=== PATIENT | male | born 1940 | race Caucasian/White ===

== ENCOUNTER 2017-06-05 09:22 | Inpatient (IN) | payer OTHER ==
[2017-06-05] MEDS ORDERED: ONDANSETRON DISINTEGRATING 4 MG TAB PO PRN (12:03)
[2017-06-05] MEDS ORDERED: PROMETHAZINE HCL 25 MG/ML INJ IVP PRN (12:03)
[2017-06-05] MEDS ORDERED: ACETAMINOPHEN 325 MG TAB PO PRN (12:03)
[2017-06-05] MEDS ORDERED: ONDANSETRON 4 MG/2 ML VIAL IVP PRN (12:03)
[2017-06-05] MEDS ORDERED: ALLOPURINOL 300 MG TAB PO SCH (12:15)
--- NOTE | 2017-06-05 12:27 | PDGENHP ---
History and Physical - Chief Complaint back pain - History of Present Illness 76 yo M with PMH of lumbar stenosis s/p lumbar fusion in February presenting with worsening radicular back pain. He was transferred from [place] for these complaints. He notes that the pain is present in his lower back with radiation down the front of his legs, previously it was with radiation down the backs of his legs. He does not believe he has had any associated weakness though he does experience buckling sometimes due to the pain. He has had no loss of sensation. No fever or chills. No change in bowel or bladder function. He did have hydrocodone at home but pain was not controlled from that. He was hospitalized earlier in the month for the same issues in [facility]. He notes that pain never improved however. History Information - Allergies/Home Medication List Allergies/Adverse Reactions: Sulfa (Sulfonamide Antibiotics) Allergy (Mild, Verified 06/05/17 11:37) Congestion Home Medications: Allopurinol [Allopurinol 300 MG (RX)] 300 mg PO MOTUTHFRSA 06/05/17 [Last Taken 06/04/17] Cetirizine [ZyrTEC 10 mg (*)] 10 mg PO DAILY 06/05/17 [Last Taken 06/04/17] Denosumab [Prolia] 60 mg SQ Q182D 06/05/17 [Last Taken Unknown] Fluticasone/Salmeter 250/50Mcg [Advair 250/50 (*)] 1 puffs IH BID 06/05/17 [ Last Taken 06/04/17 21:00] Glucosamine/Chondroitin [Glucosamine/Chondroitin (*)] 1 each PO ACHS 06/05/17 [ Last Taken Unknown] HYDROcodone/APAP 10/325 [[place] 10/325 (*)] 1 tab PO Q6 06/05/17 [Last Taken Unknown] Herbals/Supplements -Info Only 1 ea PO DAILY 06/05/17 [Last Taken Unknown] LORazepam [Ativan (*)] 1 mg PO TID PRN 06/05/17 [Last Taken Unknown] Methocarbamol [Robaxin 750 mg (*)] 750 mg PO DAILY PRN 06/05/17 [Last Taken Unknown] Multivitamins [Multivitamin (*)] 1 each PO DAILY 06/05/17 [Last Taken Unknown] Ranitidine HCl [Zantac] 150 - 300 mg PO DAILY 06/05/17 [Last Taken 06/04/17] guaiFENesin [Mucinex 600 MG (*)] 600 mg PO BID 06/05/17 [Last Taken Unknown] predniSONE [Aruna] 2 mg PO BID PRN 06/05/17 [Last Taken Unknown] I have personally reviewed and updated: family history, medical history, social history, surgical history - Past Medical History arthritis, asthma, osteoporosis Additional medical history: lumbar stenosis. gout - Surgical History Reports: spinal surgery - Family History Positive for: non-pertinent - Social History Smoking Status: Former smoker Alcohol Use: Occasionally (1 glass of wine/day) Drug Use: None Additional social history: Review of Systems ROS: 10pt was reviewed & negative except for what was stated in HPI & below Physical Exam Temp Pulse Resp BP Pulse Ox 37.0 C 91 16 136/84 H 91 L 06/05/17 11:00 06/05/17 11:00 06/05/17 11:00 06/05/17 11:00 06/05/17 11:00 O2 (L/minute) 2 Constitutional: appears nourished, uncomfortable Eyes: PERRL, anicteric sclera Ears, Nose, Mouth, Throat: moist mucous membranes, hearing normal Cardiovascular: regular rate and rhythym, no murmur, rub, or gallop, No edema Respiratory: no respiratory distress, no rales or rhonchi, clear to auscultation Gastrointestinal: normoactive bowel sounds, soft, non-tender abdomen, no palpable masses Skin: warm, normal color Musculoskeletal: full muscle strength, no muscle tenderness, No asymmetric calves Neurologic: AAOx3, sensation intact bilaterally, CN II-XII Intact, No weakness, No numbness Psychiatric: interacting appropriately, not anxious, not encephalopathic Lab Data & Imaging Review Visualized and Interpreted imaging results: Yes Interpretation: MRI L spine: s/p lumbar stenosis, new moderate to severe L1/L2 central canal stenosis Assessment & Plan Assessment: 76 yo M with hx of lumbar stenosis s/p surgery in february presenting with worsening lumbar radiculopathy # lumbar radiculopathy: pain increased and changed somewhat in nature, now radiation to the front of his legs rather than the back. no obvious associated weakness or numbness, no loss of bowel/bladder function. Neurosurgery consulted with plans to review MRI and further recs to follow. For now, pain mgmt with prn IV opiates, valium for muscle spasm. PT/OT to evaluate. # RAD: without e/o acute exacerbation, prn albuterol # gout: continue op medications including allopurinol and uses prednisone on a prn basis # osteoporsis # observation status, depending on clinical improvement and nsg recs may be able to dc in less than 48 hours, High risk given need for IV opiates Patient new to my care. Old records reviewed and summarized as above. Care plan reviewed with MINA AGARWAL. Further hx obtained from patients present at bedside.
[2017-06-05] MEDS: HYDROmorphONE/DILAUDID 1 MG/ML SYR IVP PRN ×2 (12:32→18:12)
[2017-06-05] MEDS: oxyCODONE IR 5 MG TAB PO PRN ×3 (14:05→21:18)
[2017-06-05] MEDS ORDERED: METHOCARBAMOL 750 MG TAB PO PRN (15:57)
[2017-06-05] MEDS ORDERED: LORazepam 1 MG TAB PO PRN (15:57)
[2017-06-05] MEDS ORDERED: predniSONE 1 MG TAB PO PRN (16:00)
[2017-06-05] MEDS ORDERED: DIAZEPAM 10 MG/2 ML SYR IVP PRN (16:02)
[2017-06-05] MEDS: GLUCOSAMINE/CHONDROITIN CAP PO SCH ×2 (17:18→21:18)
[2017-06-05] MEDS: HYDROCODONE/APAP 10/325 TAB PO SCH (17:21)
[2017-06-05] MEDS ORDERED: NALOXONE HCL 0.4 MG/ML INJ ONE (17:34)
[2017-06-05] MEDS ORDERED: fentaNYL 100 MCG/2 ML INJ ONE (17:35)
[2017-06-05] MEDS ORDERED: IPRATROPIUM/ALBUTEROL 3 ML DEYVIAL ONE (17:48)
[2017-06-05] MEDS: IPRATROPIUM/ALBUTEROL 3 ML DEYVIAL IH SCH (17:50)
--- NOTE | 2017-06-05 20:16 | POSTOPPROG ---
Post Op Note Date of Operation: 06/05/17 Surgeon: Anthony Oliveros Anesthesia: Other (Specify) (IV analgesia; no sedation) Pre-op Diagnosis: Insufficiency fracture of L2. Lumbar degenerative disc disease. Post-op Diagnosis: Same Indication: Back pain, bilateral leg pain Procedure: Caudal epidural steroid injection Findings: 2 ml kenalog (80 mg) and 3.5 ml PF 1% xylocaine epidural Inf/Abcess present in the surg proc area at time of surgery?: No EBL: Minimal Complications: 0
[2017-06-05] MEDS ORDERED: IOPAMIDOL (ISOVUE-M 300) 15 ML VIAL ONE (20:27)
[2017-06-05] MEDS ORDERED: TRIAMCINOLONE ACETONIDE 200 MG/5 ML MDV IM ONE (20:27)
[2017-06-05] MEDS: guaiFENesin 600 MG TAB.ER PO SCH (21:18)
[2017-06-05] MEDS: FLUTICASONE/SALMETER 250/50MCG DISKUS IH SCH (21:20)
--- NOTE | 2017-06-05 22:36 | GCON ---
[f rep st] CONSULTATION NEUROSURGERY CONSULTATION CHIEF COMPLAINT: Severe back pain. HPI: The patient is a 76-year-old male patient, well known to our office. He initially presented to our office with worsening back and leg pain, and had a history of prior fusion. He was found to have adjacent level breakdown at the L2-L3 level. After careful consideration, he underwent hardware exploration removal revision with a new TLIF at the L2-3 level, and extension of hardware from L2, with hardware replacement from L2-L4 bilaterally. Vertebroplasty was performed at the L2 level as well with bone cement placed around the screws. The patient was initially doing very well after surgery, and was most recently seen at his 6 week postop visit and was doing well. We advance his activity slowly with physical therapy. Over the past 2 weeks or so the patient has had worsening back pain. He was admitted at [facility] on May 26 with severe back pain. He states he had woken up after doing some yard work and working on a fence post the day before, and was unable to get up off the floor, and subsequently EMS was called. They brought him to [facility]. He states his pain was treated, and he was subsequently discharged. However, his pain has persisted since that time, and he presented to the Emergency Room at [place] again today. I discussed with the ER physician up in [place] after he called me about the patient. We discussed at this time it would be reasonable to transfer him down here to [place] to further work up his symptoms, and also to see if more urgent surgery was indicated. The patient recently underwent a new MRI and also CT scan lumbar spine, which were brought down from the [facility], and have been loaded on [facility]. The complains persistent lower back pain that radiates down the front of his legs. Previously it only radiated down the back of his legs. He states that because of the pain his legs felt weak at times, but he does not notice any new numbness, tingling, profound weakness in his legs or loss of bladder or bowel control. He was taking hydrocodone at home for his pain, but that did not control his pain adequately. ALLERGIES: Sulfa. HOME MEDICATIONS: Allopurinol, Zyrtec, Advair, glucosamine-chondroitin, multivitamin, fish oil, Zantac. FAMILY HISTORY: Reviewed, is noncontributory. MEDICAL HISTORY: Four prior back surgeries. Undergoing his most recent operation with Dr. Ellis. SOCIAL HISTORY: The patient is a former smoker. He is . He lives in [place]. He does use alcohol, but denies excessive use. REVIEW OF SYSTEMS: Please see above mentioned in the HPI. PHYSICAL EXAMINATION: VITAL SIGNS: Blood pressure 136/84, heart rate 91, respirations 16, O2 saturation is 91% on 2 L of oxygen via nasal cannula, temperature is 37 Celsius. GENERAL: Well-developed, well-nourished, male patient. He is in no acute distress. He appears to be resting comfortably in bed. He was recently given some pain medication. NEURO: Motor examination of bilateral lower extremities is 5/5 for hip flexion, flexion/extension of the knee, and plantar and dorsiflexion. He has 2+ bilateral patellar reflexes. Negative Babinski. He has intact sensation throughout the normal dermatomal distribution of his body. IMAGING: CT and MRI reviewed from outside hospital. Dr. Ellis has reviewed these images as well. He does have some moderate stenosis above his fusion at the L1-L2 level as seen on his MRI. His CT lumbar spine does show some air around one of the screws at the L2 level. The L5-S1 level also has some air in the disc space. It does not appear he has had any prior decompressions at the L5-S1 level. ASSESSMENT: This is a 76-year-old male patient with known lumbar degenerative disc disease and multilevel degeneration, who is status post L2-L4 fusion 3 months ago. Now with worsening pain, and apparent loosening of one of his L2 screws. Also stenosis at L1-L2, disc height loss, and endplate changes with facet arthropathy at the L5-S1 level. PLAN: I have seen and examined the patient today. Dr. Ellis has spoken with and seen the patient as well. At this time, we will discuss further with the patient if he would like to consider trying an injection at the L5-S1 level to see if this assists in his pain control. We feel it is likely he is symptomatic from his degeneration both at L1, L2, the loose screw at L2, and also the degeneration of the L5-S1 level. He may require revision of his fusion with extension likely from T12-S1 with TLIF to L1-L2, replacement of the screw at L2, with placement of bone cement, and TLIF at the L5-S1 level as well. While the patient is admitted, we will work on managing his pain, and work to ensure that we have a good regimen for pain control before he is discharged. Neurosurgery with continue to follow along with this patient. We will see how he wants to proceed in regard to the injection at the L5-S1 level. Please contact the neurosurgery service with any additional questions or concerns. /[id number]/MODL MTDD
[2017-06-06] MEDS: HYDROCODONE/APAP 10/325 TAB PO SCH ×3 (01:03→11:07)
[2017-06-06 05:19] LABS: ADD DIFF? YES; ADD MORPH? NO; ADD SCAN? NO; ATYPICAL LYMPHOCYTE FLAG 0 (0-99); FRAGMENT RBC FLAG 0 (0-99); HEMATOCRIT 44.9 % (40.0-51.0); HEMOGLOBIN 14.8 g/dL (13.7-17.5); LEFT SHIFT FLG 30 (0-99); LIPEMIA HEMOLYSIS FLAG 80 (0-99); MEAN CELL VOLUME 91.1 fL (81.5-99.8); MEAN PLATELET VOLUME 8.6 fL (8.7-11.7); PLATELET CLUMPS FLAG 10 (0-99); PLATELET COUNT 327 10^3/uL (150-400); RED BLOOD CELL COUNT 4.93 10^6/uL (4.40-6.38); RED CELL DISTRIBUTION WIDTH 13.5 % (11.5-15.2)
[2017-06-06 05:35] LABS: ANION GAP 9 mEq/L (8-16); CALCIUM 8.7 mg/dL (8.5-10.4); CARBON DIOXIDE 23 mEq/l (22-31); CHLORIDE 107 mEq/L (97-110); GLOMERULAR FILTRATION RATE > 60; GLUCOSE 136 mg/dL (70-100); POTASSIUM 4.8 mEq/L (3.5-5.2); SODIUM 139 mEq/L (134-144)
[2017-06-06] MEDS: IPRATROPIUM/ALBUTEROL 3 ML DEYVIAL IH SCH ×4 (05:35→21:00)
[2017-06-06 07:03] LABS: PLATELET ESTIMATE ADEQUATE (ADEQ)
[2017-06-06] MEDS: OMEGA-3 FATTY ACIDS 1,000 MG CAP PO SCH (08:55)
[2017-06-06] MEDS: guaiFENesin 600 MG TAB.ER PO SCH ×2 (08:55→21:16)
[2017-06-06] MEDS: GLUCOSAMINE/CHONDROITIN CAP PO SCH ×2 (08:55→11:07)
[2017-06-06] MEDS: FLUTICASONE/SALMETER 250/50MCG DISKUS IH SCH ×2 (08:55→21:07)
[2017-06-06] MEDS: MULTIVITAMINS 1 EACH TAB PO SCH (08:55)
[2017-06-06] MEDS ORDERED: RANITIDINE HCL PO SCH (09:00)
[2017-06-06] MEDS ORDERED: FAMOTIDINE 20 MG TAB PO SCH (09:00)
[2017-06-06] MEDS ORDERED: CETIRIZINE 10 MG TAB PO SCH ×2 (09:00→21:00)
[2017-06-06] MEDS ORDERED: NON-FORMULARY NEW DRUG (Ranitidine Hcl [Zantac 75] 75 MG) PO SCH (09:00)
[2017-06-06] MEDS ORDERED: FAMOTIDINE 20 MG TAB PO PRN (12:01)
--- NOTE | 2017-06-06 12:20 | NEUSURGPN ---
Assessment/Plan: 76m with L2-4 PSF 3 months ago and now with ASD on both sides of construct and intermittent severe back and leg pain that recently improved after a caudal SANA. Plan: -He is tentatively scheduled for revision surgery on 06/18 if needed, however, he can follow up with us outpatient to discuss. -We recommend staying one more day to ensure his pain is truly improved before dispo as he has bounced back the ED twice recently -Pt should do light duty at this time, no bending, twisting, lifting >10-15lbs at this time. -We would recommend a good pain control regiment for if his pain increases again that includes increased dose options of oxycodone, with concurrent tylenol and possibly the addition gabapentin. We can gladly provide these medications if needed. Subjective: doin much better since the injection, worried that the pain will come back in a few days as it has before. Objective: NAD, VSS EOMI, PEARLA MAEx4 BLE 5/5= +LT using walker to ambulate Urinary Catheter in Place: No - Physician Discussed Patient with : [facility] Physical Exam - Vitals, I&O, Labs I and O 06/05/17 06/06/17 06/07/17 05:59 05:59 05:59 Output Total 800 300 Balance -800 -300 Weight 78.471 kg Output: Urine (ml) 800 300 Toilet 800 300 Other: Number of Voids Toilet 3 1 Number of Stools Toilet 1 1 Vital Signs Temp Pulse Resp BP Pulse Ox 36.6 C 81 16 138/81 H 96 06/06/17 07:27 06/06/17 07:27 06/06/17 07:27 06/06/17 07:27 06/06/17 07:27 Laboratory Results 06/06/17 05:03 06/06/17 05:03 ICD10 Worksheet Patient Problems: Problems Problem Status Onset Other spondylosis with radiculopathy, lumbar region Acute Other spondylosis with radiculopathy, lumbar region Acute Pain Acute Pain Acute - ICD10 Problem Qualifiers (1) Pain (2) Other spondylosis with radiculopathy, lumbar region (3) Other spondylosis with radiculopathy, lumbar region
[2017-06-06] MEDS: ALLOPURINOL 300 MG TAB PO SCH (12:41)
[2017-06-06] MEDS: predniSONE 10 MG TAB PO SCH (12:41)
[2017-06-06] MEDS ORDERED: IPRATROPIUM/ALBUTEROL 3 ML DEYVIAL IH PRN (13:45)
[2017-06-06] MEDS ORDERED: NON-FORMULARY NEW DRUG (Propylene Glycol/Peg 400/Pf [Systane 0.3-0.4% Eye Drops] 1 EACH) OP PRN (13:45)
[2017-06-06] MEDS ORDERED: Propylene Glycol/Peg 400/Pf [Systane 0.3-0.4% Eye Drops] 1 EACH OP PRN (14:01)
--- NOTE | 2017-06-06 14:01 | HOSPPROG ---
Hospitalist Progress Note Assessment/Plan: 76 yo M with pmh of lumbar stenosis s/p lumbar fusion with complications since surgery including degeneration of the fusion at multiple levels, loose screw at l2 and residual canal stenosis now sp SANA # lumbar radiculopathy: s/p lumbar fusion and complications as above, he was having severe pain on admission that is now significantly improved following epidural spinal injection. Plan is to continue to monitor overnight given severe pain on admission and multiple admissions recently but if continues to be controlled will likely dc in am. # lumbar stenosis with degeneration of fusion: will need repeat surgery, has been scheduled tentatively in the coming weeks # RAD vs copd: per patient has a hx of asthma but given prolonged smoking history likely copd, continue duonebs/albuterol, no e/o acute decompensation # gout: continue allopurinol # dispo: IP status, will need > 48 hours stay for eval/mgmt of above, high risk given intermittent need for IV opioids Subjective: had SANA yesterday and feeling much better today, ambulating and feeling much better today Objective: Vital Signs Temp Pulse Resp BP Pulse Ox 36.6 C 81 16 138/81 H 96 06/06/17 07:27 06/06/17 07:27 06/06/17 07:27 06/06/17 07:27 06/06/17 07:27 Laboratory Results 06/06/17 05:03 06/06/17 05:03 06/05/17 06/06/17 06/07/17 05:59 05:59 05:59 Output Total 800 300 Balance -800 -300 awake alert nad anicteric op clear rrr no mrg cta b soft nt nd no cce warm dry well perfused oriented appropriate ICD10 Worksheet Patient Problems: Problems Problem Status Onset Pain Acute Pain Acute Other spondylosis with radiculopathy, lumbar region Acute Other spondylosis with radiculopathy, lumbar region Acute
[2017-06-06] MEDS: HYDROCODONE/APAP 10/325 TAB PO PRN (17:43)
[2017-06-06] MEDS ORDERED: GLUCOSAMINE/CHONDROITIN CAP PO SCH (21:00)
[2017-06-06] MEDS ORDERED: LORazepam 1 MG TAB PO SCH (21:00)
[2017-06-07] MEDS: IPRATROPIUM/ALBUTEROL 3 ML DEYVIAL IH SCH (05:43)
[2017-06-07] MEDS: HYDROCODONE/APAP 10/325 TAB PO PRN ×3 (05:59→11:42)
[2017-06-07 07:33] VITALS: BP 137/81; PULSE 98; RESP 16; TEMP 98.8; O2SAT 94
--- NOTE | 2017-06-07 08:30 | NEUSURGPN ---
Assessment/Plan: 76m with L2-4 PSF 3 months ago and now with ASD on both sides of construct and intermittent severe back and leg pain that recently improved after a caudal SANA. continues to do well and pain better controlled. Plan: -He is tentatively scheduled for revision surgery on 06/18 if needed, however, he can follow up with us outpatient to discuss. -OK for DC today from our stand point with pain meds. -Pt should do light duty at this time, no bending, twisting, lifting >10-15lbs at this time. -We would recommend a good pain control regiment for if his pain increases again that includes increased dose options of oxycodone if needed, with concurrent tylenol and possibly the addition gabapentin. We can gladly provide these medications if needed. dw Dr. Ellis Subjective: doing well, a little bit of increased pain when getting up, but overall much improved and tolerable. Objective: NAD, VSS cnii-xii grossly intact EOMI, PEARLA speech clear MAEx4 BLE 5/5= +LT - Physician Discussed Patient with Dr.: [facility] Physical Exam - Vitals, I&O, Labs I and O 06/06/17 06/07/17 06/08/17 05:59 05:59 05:59 Intake Total 1000 Output Total 800 600 Balance -800 400 Weight 78.471 kg Intake: Oral (ml) 1000 Output: Urine (ml) 800 600 Toilet 800 600 Other: Number of Voids Toilet 3 1 2 Number of Stools Toilet 1 1 Vital Signs Temp Pulse Resp BP Pulse Ox 37.1 C 98 16 137/81 H 94 06/07/17 07:33 06/07/17 07:33 06/07/17 07:33 06/07/17 07:33 06/07/17 07:33 Laboratory Results 06/06/17 05:03 06/06/17 05:03 ICD10 Worksheet Patient Problems: Problems Problem Status Onset Other spondylosis with radiculopathy, lumbar region Acute Other spondylosis with radiculopathy, lumbar region Acute Pain Acute Pain Acute - ICD10 Problem Qualifiers (1) Pain (2) Other spondylosis with radiculopathy, lumbar region (3) Other spondylosis with radiculopathy, lumbar region
[2017-06-07] MEDS: ALLOPURINOL 300 MG TAB PO SCH (08:55)
[2017-06-07] MEDS: predniSONE 10 MG TAB PO SCH (08:55)
[2017-06-07] MEDS: OMEGA-3 FATTY ACIDS 1,000 MG CAP PO SCH (08:55)
[2017-06-07] MEDS: guaiFENesin 600 MG TAB.ER PO SCH (08:55)
[2017-06-07] MEDS: MULTIVITAMINS 1 EACH TAB PO SCH (08:55)
[2017-06-07] MEDS ORDERED: predniSONE 10 MG TAB PO SCH (09:00)
[2017-06-07] MEDS ORDERED: GLUCOSAMINE/CHONDROITIN CAP PO SCH (09:00)
[2017-06-07] MEDS ORDERED: LORazepam 1 MG TAB PO SCH (09:00)
--- NOTE | 2017-06-07 09:23 | PDDCSUM ---
Discharge Summary Discharge Summary: Dates of service: 06/05-06/07/17 Discharge diagnosis: # lumbar radiculopathy # lumbar stenosis with fusion degeneration # RAD vs COPD # gout Consultations: neurosurgery Procedures performed: epidural spinal injection Hospital course by problem: 76 yo M with pmh of lumbar stenosis s/p lumbar fusion with complications since surgery including degeneration of the fusion at multiple levels, loose screw at l2 and residual canal stenosis now sp SANA # lumbar radiculopathy: s/p lumbar fusion and complications as above, he was having severe pain on admission that is now significantly improved following epidural spinal injection. Will dc home with addition of oxycodone and valium prn # lumbar stenosis with degeneration of fusion: will need repeat surgery, has been scheduled tentatively for the # RAD vs copd: per patient has a hx of asthma but given prolonged smoking history likely copd, continue duonebs/albuterol, no e/o acute decompensation # gout: continue allopurinol dc home > 35 minutes spent in dc of patient more than half in coordination of care
[2017-06-07] MEDS: FLUTICASONE/SALMETER 250/50MCG DISKUS IH SCH (09:48)
== END 2017-06-07 11:44 | disposition home or self-care (01) | DRG 552 ==
LOC: F3N 11:00 → INTOOBSV 11:00 → OBSVTOIN 06-06 14:16
PROVIDERS: ADMIT Hospitalist; ATTEND Hospitalist
PROC: 3E0S33Z Introduction of Anti-inflammatory into Epidural Space, Percutaneous Approach (ICD-10-PCS; principal; 2017-06-06)
DX: M54.16 Radiculopathy, lumbar region (principal); Z98.1 Arthrodesis status; T84.226A Displacement of internal fixation device of vertebrae, initial encounter; J45.909 Unspecified asthma, uncomplicated; M10.9 Gout, unspecified; Z87.891 Personal history of nicotine dependence; M81.0 Age-related osteoporosis without current pathological fracture
CPT/HCPCS: 97161-GP; 97165-GO; G0378; G8978-GP-CI; G8979-GP-CI; G8980-GP-CI; G8987-GO-CI; G8988-GO-CI; G8989-GO-CI; J1170; J2310; J3010; J3301; Q9967

== ENCOUNTER 2017-06-19 18:41 | Inpatient (IN) | payer OTHER ==
[2017-06-19] MEDS ORDERED: PROMETHAZINE HCL 25 MG/ML INJ IVP PRN (21:12)
[2017-06-19] MEDS ORDERED: ONDANSETRON DISINTEGRATING 4 MG TAB PO PRN (21:12)
[2017-06-19] MEDS ORDERED: ONDANSETRON 4 MG/2 ML VIAL IVP PRN (21:12)
[2017-06-19] MEDS: oxyCODONE IR 5 MG TAB PO PRN (21:32)
[2017-06-19] MEDS: HYDROmorphONE/DILAUDID 1 MG/ML SYR IVP PRN (21:32)
[2017-06-19] MEDS ORDERED: METHOCARBAMOL 750 MG TAB PO PRN (22:25)
[2017-06-19] MEDS ORDERED: DIAZEPAM 5 MG TAB PO PRN (22:25)
[2017-06-19] MEDS ORDERED: TEARS/DEXTRAN 70/HYPROMELLOSE 15 ML OPHT.BTL OP PRN (22:25)
[2017-06-19] MEDS ORDERED: FAMOTIDINE 20 MG TAB PO PRN (22:25)
--- NOTE | 2017-06-19 23:37 | GHP ---
[f rep st] HISTORY AND PHYSICAL DATE OF ADMISSION: 06/19/2017 CHIEF COMPLAINT: Back pain. HISTORY: This is a 76-year-old man with a past medical history that includes multiple lumbar fusion surgeries with revisions and hardware replacement presenting for the second time this month for com plaints of worsening lower back pain with associated radiculopathy. At his last hospitalization [place] this month, he was seen by his usual neurosurgeon, Dr. Ellis. At that time, it was felt that he was likely symptomatic from degeneration of his fusion at L1-L2 with an associated loose screw at L2 and also degeneration at the L5-S1 level. At that time, he was treated with an epidural injecti on and pain management, and a tentative plan for surgical revision was made for the . Patient d ischarged back home to [place] with improved pain control. He notes he followed up with Dr. Krishna rangel and they elected to continue conservative management rather than proceed with the scheduled surge ry for 06/18. Patient had been doing well with conservative management alone up until Thursday of this week when he saw physical therapy. Since that physical therapy episode, he had began to have m uch worse pain across his bilateral lower back, again associated with shooting pain down his legs. He called Neurosurgery, who instructed him to increase his pain medications and be seen at the emerg ency room. He was seen at the [place] [facility], after the ER doctor over there had a discu ssion with Dr. Palomino, decision was made to have him transferred here for further management. At the time of my evaluation, patient is in significant pain. He notes it is the same pain as befor e. He has not had any fevers or chills. He has not had any new symptoms. He does not have any wea kness. He has had no bowel or bladder incontinence. PAST MEDICAL HISTORY: 1. Osteoporosis. 2. Lumbar stenosis. 3. Arthritis. 4. Asthma. 5. Gout. PAST SURGICAL HISTORY: Includes multiple lumbar surgeries, at least 4, including TLIF at L2-L3, era tebroplasty, hardware replacement, and a prior lumbar fusion. SOCIAL HISTORY: Patient is a prior smoker. He is . Lives in [place]. Use alcohol occas ionally, states 1 glass of wine per day. REVIEW OF SYSTEMS: A 10-point review of systems obtained, negative except as per HPI. MEDICATIONS: Include: 1. Prednisone. 2. Oxycodone. 3. Guaifenesin. 4. Ranitidine. 5. Systane eye drops. 6. Multivitamin. 7. Robaxin. 8. DuoNeb. 9. Glucosamine chondroitin. 10. Advair. 11. Valium. 12. Prolia. 13. Cetirizine. 14. Allopurinol. 15. Tylenol. ALLERGIES: Include sulfa. PHYSICAL EXAMINATION: VITAL SIGNS: BP 134/84, heart rate 112, respiratory rate 18, O2 sats 94% on 3 L. Temperature is 37.1. GENERAL APPEARANCE: This is a well-developed/well-nourished m ron. He is in mild distress. EYES: Anicteric. HENT: Oropharynx clear. CARDIOVASCULAR: Mildly tachy, regular, no MRG. PULMONARY: CTA bilaterally. Normal work of breathing. ABDOMEN: Soft, no ntender. Positive bowel sounds. Abdomen is somewhat firm. EXTREMITIES: Trace bilateral lower ext remity edema. SKIN: Warm, dry, well perfused. NEURO/PSYCH: Oriented and appropriate, though some what somnolent. CLINICAL DATA: Labs from 06/06 were reviewed, notable for a white blood cell count of 18 and a gluc ose of 136. ASSESSMENT AND PLAN: This is a 76-year-old man with a past medical history of lumbar stenosis statu s post multiple lumbar fusion surgeries with hardware degeneration presenting with worsening back pa in. 1. Lumbar radiculopathy. Again, patient has degeneration of his fusion with a loose screw at L2 an d residual canal stenosis. There was a plan for surgical intervention that ultimately was deferred by patient preference. It does seem as if he is failing conservative management. He will be [place] t in for pain management. Dr. Palomino is aware of his transfer but likely, Dr. Ellis's office will n eed to be notified in the morning to be sure that they see him while he is here in-house. I will amezcua ve the patient be n.p.o. after midnight in case surgery can be performed tomorrow. 2. Chronic pain with continuous narcotic use and dependency in the setting of above and currently w orse than baseline. Will continue his home regimen with the addition of IV Dilaudid as needed. 3. History of reactive airways disease versus chronic obstructive pulmonary disease. Will continue DuoNeb and albuterol. He does not appear to have an acute exacerbation. 4. Gout. Continue allopurinol. 5. Hypoxia. This is in the setting of pain medication and somnolence and likely secondary to the s marisela. Will continue to monitor. Pulmonary exam was benign. 6. Disposition: Inpatient status. Suspect he will need greater than 48 hours stay for evaluation and management of above. Patient is new to my care. Old records reviewed, summarized as per HPI and past medical history. C are plan reviewed with ER physician, including plans for transfer here to [place]. /[id number]/MODL
[2017-06-20] MEDS: oxyCODONE IR 5 MG TAB PO PRN ×3 (00:53→12:25)
[2017-06-20 05:07] LABS: ADD DIFF? YES; ADD MORPH? NO; ADD SCAN? NO; ATYPICAL LYMPHOCYTE FLAG 0 (0-99); FRAGMENT RBC FLAG 0 (0-99); HEMATOCRIT 41.8 % (40.0-51.0); HEMOGLOBIN 13.8 g/dL (13.7-17.5); LEFT SHIFT FLG 40 (0-99); LIPEMIA HEMOLYSIS FLAG 80 (0-99); MEAN CELL HEMOGLOBIN 29.4 pg (27.9-34.1); MEAN CELL VOLUME 89.1 fL (81.5-99.8); MEAN PLATELET VOLUME 8.9 fL (8.7-11.7); PLATELET CLUMPS FLAG 0 (0-99); PLATELET COUNT 266 10^3/uL (150-400); RED BLOOD CELL COUNT 4.69 10^6/uL (4.40-6.38); RED CELL DISTRIBUTION WIDTH 14.5 % (11.5-15.2)
[2017-06-20 05:23] LABS: ANION GAP 9 mEq/L (8-16); CALCIUM 8.8 mg/dL (8.5-10.4); CARBON DIOXIDE 25 mEq/l (22-31); CHLORIDE 104 mEq/L (97-110); CREATININE 0.9 mg/dL (0.7-1.3); GLOMERULAR FILTRATION RATE > 60; GLUCOSE 138 mg/dL (70-100); POTASSIUM 4.1 mEq/L (3.5-5.2); SODIUM 138 mEq/L (134-144)
[2017-06-20 05:26] LABS: INR 1.09 (0.83-1.16)
[2017-06-20 05:27] LABS: APTT 29.3 SEC (23.0-38.0)
[2017-06-20 06:10] LABS: PLATELET ESTIMATE ADEQUATE (ADEQ)
[2017-06-20] MEDS: GLUCOSAMINE/CHONDROITIN CAP PO SCH (08:42)
[2017-06-20] MEDS: ALLOPURINOL 300 MG TAB PO SCH (08:42)
[2017-06-20] MEDS: CETIRIZINE 10 MG TAB PO SCH (08:43)
[2017-06-20] MEDS: MULTIVITAMINS 1 EACH TAB PO SCH (08:43)
[2017-06-20] MEDS: FLUTICASONE/SALMETER 250/50MCG DISKUS IH SCH ×2 (08:58→20:57)
[2017-06-20] MEDS: IPRATROPIUM/ALBUTEROL 3 ML DEYVIAL IH PRN ×2 (08:58→13:06)
[2017-06-20] MEDS ORDERED: MAGNESIUM HYDROXIDE 30 ML UDCUP PO PRN (10:01)
[2017-06-20] MEDS ORDERED: LACTULOSE 20 GM/30 ML UDCUP PO PRN (10:01)
[2017-06-20] MEDS ORDERED: BISACODYL 10 MG SUPP PR PRN (10:01)
[2017-06-20] MEDS: predniSONE 10 MG TAB PO SCH (10:14)
[2017-06-20] MEDS ORDERED: ACETAMINOPHEN 325 MG TAB PO PRN (10:41)
[2017-06-20 11:22] LABS: % IMMATURE GRANULYOCYTES 2.2 % (0.0-1.1); ADD DIFF? NO; ADD MORPH? NO; ADD SCAN? NO; ATYPICAL LYMPHOCYTE FLAG 0 (0-99); FRAGMENT RBC FLAG 0 (0-99); HEMATOCRIT 44.2 % (40.0-51.0); HEMOGLOBIN 14.8 g/dL (13.7-17.5); LEFT SHIFT FLG 20 (0-99); LIPEMIA HEMOLYSIS FLAG 80 (0-99); MEAN CELL HEMOGLOBIN 29.7 pg (27.9-34.1); MEAN CELL HEMOGLOBIN CONCENTR. 33.5 g/dL (32.4-36.7); MEAN CELL VOLUME 88.6 fL (81.5-99.8); MEAN PLATELET VOLUME 8.9 fL (8.7-11.7); PLATELET CLUMPS FLAG 30 (0-99); PLATELET COUNT 269 10^3/uL (150-400); RED BLOOD CELL COUNT 4.99 10^6/uL (4.40-6.38); RED CELL DISTRIBUTION WIDTH 14.4 % (11.5-15.2)
[2017-06-20 11:30] LABS: INR 1.12 (0.83-1.16); PROTIME(PATIENT) 14.3 SEC (12.0-15.0)
[2017-06-20 11:37] LABS: ALANINE AMINOTRANSFERASE 42 IU/L (21-72); ALBUMIN 3.1 g/dL (3.5-5.0); ALKALINE PHOSPHATASE 105 IU/L (38-126); ANION GAP 11 mEq/L (8-16); ASPARTATE AMINOTRANSFERASE 39 IU/L (17-59); CALCIUM 8.8 mg/dL (8.5-10.4); CARBON DIOXIDE 24 mEq/l (22-31); CHLORIDE 103 mEq/L (97-110); GLOMERULAR FILTRATION RATE > 60; GLUCOSE 111 mg/dL (70-100); POTASSIUM 4.1 mEq/L (3.5-5.2); SODIUM 138 mEq/L (134-144); TOTAL PROTEIN 5.5 g/dL (6.3-8.2)
--- NOTE | 2017-06-20 11:53 | GCON ---
[f rep st] CONSULTATION NEUROSURGERY CONSULTATION DATE OF CONSULTATION: 06/20/2017 Patient was seen and evaluated at approximately 10 a.m. on the general care floor at [facility]. HISTORY OF PRESENT ILLNESS: The patient is a 76-year-old man who is well known to Dr. Ellis, my pa rtner. He had a revision of hardware and L2-3 TLIF with [facility]. He has had 5 lumbar spine surgeries and now has hardware at L2 to L4 and fusion f rom L2 to L5. He also has severe osteoporosis and has vertebral augmentation at each level. He has been followed by Dr. Ellis in the clinic and, after his last surgery, was having very severe right -sided low back pain radiating into the hip. He also says that the pain radiates into the top of th e right foot and great toe occasionally. This pain has been quite severe, causing him to seek care in the emergency department at [place] yesterday, and was transferred down here to [place] for in patient pain management and evaluation by us. He had an MRI scan a couple weeks back, which does sh ow severe disk degeneration at L5-S1, especially on the right side with severe foraminal stenosis an d nerve impingement. 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 He did not have any other major complaints a t this time. He has not had any significant lower extremity weakness that he is reporting. He does have some baseline shortness of breath but, otherwise, no chest pain or abdominal pain. REVIEW OF SYSTEMS: A 10-point review of systems is negative other than that described in the HPI. PAST MEDICAL HISTORY: 1. Osteoporosis. 2. Significant lumbar spine disease with multiple surgeries. 3. Arthritis. 4. Asthma. 5. Gout. PAST SURGICAL HISTORY: Multiple lumbar surgeries, most recently removal of the L5 screws and a TLIF at L2-3 with L2 to 4 posterior spinal fusion. SOCIAL HISTORY: The patient is a prior smoker. He is and is accompanied by his today. He lives in [place]. Uses occasional social alcohol. FAMILY HISTORY: Negative for spinal disease. ALLERGIES: Sulfa. MEDICATIONS: Prior to admission include: 1. Prednisone. 2. Oxycodone. 3. Guaifenesin. 4. Ranitidine. 5. Multivitamin. 6. Robaxin. 7. DuoNeb. 8. Glucosamine/chondroitin. 9. Advair. 10. Valium. 11. Prolia. 12. Cetirizine. 13. Allopurinol. 14. Tylenol. PHYSICAL EXAMINATION: VITAL SIGNS: Currently, he is afebrile with normal stable vital signs. CONS TITUTIONAL: He is awake, alert, and oriented but lethargic due to pain medicine. He does fall asle ep during the conversation but awakens easily. NEUROLOGIC EXAMINATION: He has full 5/5 strength in the upper limbs bilaterally in all muscle group s. His sensation is intact. In the lower extremities, he has 5/5 strength of the hip flexors and e xtensors, knee flexors and extensors, and plantar flexion bilaterally. He does have 4/5 strength at dorsiflexion and EHL on the right side, and he has some numbness in the top of the right foot with loss of light touch and pinprick. His deep tendon reflexes are intact. He does have pain with palp ation over the right hip area and SI joint; however, his range of motion of the hip does not appear to bother him much. LABORATORY REVIEW: Sodium is 138, potassium 4.1, chloride 104, BUN is 19, creatinine 0.9, glucose 1 38. His white count is 17.85, hemoglobin 13.8, hematocrit 41.8, platelet count is 266,000. His INR is 1.0, PT 14, PTT is 29.3. ASSESSMENT AND PLAN: The patient is a 76-year-old male with severe lumbar spine disease. I think a t this point, he is most symptomatic from his L5-S1 disease, and he got a steroid injection at L5-S1 a couple weeks back, which gave him excellent relief for about 2 weeks. This seems to be a symptom atic L5 radiculopathy, and he does have severe foraminal stenosis and degenerative disease at the L5 -S1 level. He also has some signs of adjacent segment breakdown above his fusion, at L1-2 and T12-L 1. I have discussed with the patient and his the probable need for further surgical correction of this. His significant osteoporosis does make this surgery more difficult and somewhat risky, es pecially given the long segment construct that would be needed. I would plan to do an L5-S1 transfe moral lumbar interbody fusion and take his fusion down to the sacrum with S1 and sacral ala screws t o provide good support, given his high degree of osteoporosis. While we are there, it would also be hoove us to take his fusion up to T12, given that he already has signs of adjacent segment breakdown and has already had a number of lumbar surgeries. He will also need vertebral augmentation at prob ably each level, given his degree of osteoporosis. His white count is elevated at 17.8, and this is somewhat concerning for infection, so we will send some inflammatory markers and a urinalysis; othe rwise, we will defer to internal medicine in terms of further workup for the white count. It is pos sible that this is the demargination from his steroid use, but a white count of 17 is somewhat suman rning. He otherwise does not have any other signs of infection, and we may need to postpone his ramya marjan longer if we do see further signs that infection is an issue. Otherwise, we will plan for monica prater surgery tomorrow. The patient and his are in agreement with this plan. /[id number]/MODL
[2017-06-20] MEDS: POLYETHYLENE GLYCOL 3350 17 GM PKT PO PRN (12:25)
[2017-06-20] MEDS: guaiFENesin 200 MG TAB PO SCH ×2 (12:25→22:44)
[2017-06-20 12:26] LABS: COLOR YELLOW; LEUKOCYTE ESTERASE,URINE NEGATIVE (NEGATIVE); NITRITE,URINE NEGATIVE (NEGATIVE)
[2017-06-20 12:27] LABS: HEMATOCRIT 43.8 % (40.0-51.0)
[2017-06-20 12:42] LABS: MUCUS TRACE /lpf (NONE-1+)
--- NOTE | 2017-06-20 14:12 | CPEKG ---
Heart Rate: 119 RR Interval: 504 P-R Interval: 144 QRSD Interval: 86 QT Interval: 316 QTC Interval: 445 P [place]: 54 QRS [place]: -64 T Wave [place]: 21 EKG Severity - ABNORMAL ECG - EKG Impression: SINUS TACHYCARDIA EKG Impression: PROBABLE LEFT ATRIAL ABNORMALITY EKG Impression: LEFT ANTERIOR FASCICULAR BLOCK EKG Impression: ABNRM R PROG, CONSIDER ASMI OR LEAD PLACEMENT Electronically Signed By: David Sena 22-Jun-2017 12:26:04
[2017-06-20 15:09] LABS: BASE EXCESS -0.4 mEq/L (-2.5-2.5); BICARBONATE 22 mEq/L (22-26); MEASURED OXYGEN SATURATION 90 % (92-95); PCO2 33 mmHg (34-38); PO2 59 mmHg (65-75); TCO2 23 mEq/L (23-27)
[2017-06-20] MEDS: METHOCARBAMOL 750 MG TAB PO SCH (15:41)
[2017-06-20] MEDS ORDERED: NS 1,000 ML IV ONE (16:08)
--- NOTE | 2017-06-20 16:26 | HOSPPROG ---
Hospitalist Progress Note Assessment/Plan: Pt admitted for back pain. Lumbar fusion here 2 weeks ago. Per , pain uncontrolled at home, thus called doctor who rec increasing frequency of opioids at home. She states that he has had increased somnolence to have to wake him to give meds. She noted him coughing this morning and again this afternoon. #Acute hypoxic resp failure: CXR with BL infiltrates concerning for aspiration PNA with increased somnolence. Start Unasyn. Consider PE with surgery 2 weeks ago and decreased mobility. Stat CTA to eval for PE, trop, EKG #Sepsis: concern for PNA. Bolus IVFs, abx. Lactate, procalcitonin. Blood culture pending #Fever: suspect infection. plan as above #Tachycardia: due to fever. Bolus IVFs. EKG shows tachycardia. Trop pending #Leukocytosis: abx as above. Cultures pending #Acute toxic/metabolic encephalopathy: due to infection and opioids. Minimize these medications #Disp: transfer to ICU. Critical care time spent: 45 min. 15 min bedside,remaining reviewing prior records, imaging and coordinating transfer I explained clinical status to and possible need for intubation, transfer to ICU and agreed with plans. Subjective: called to bedside for hypoxia, tachycardia, fever Objective: Vital Signs Temp Pulse Resp BP Pulse Ox 39.2 C H 127 H 24 H 102/61 90 L 06/20/17 15:53 06/20/17 15:53 06/20/17 15:53 06/20/17 15:53 06/20/17 15:53 Laboratory Results 06/20/17 12:10 06/20/17 11:05 06/19/17 06/20/17 06/21/17 05:59 05:59 05:59 Intake Total 500 Output Total 300 Balance 200 PT 14.3 SEC (12.0-15.0) 06/20/17 11:05 INR 1.12 (0.83-1.16) 06/20/17 11:05 - Physical Exam Constitutional: uncomfortable Eyes: PERRL Ears, Nose, Mouth, Throat: dry mucous membranes Cardiovascular: tachycardia Respiratory: other (poor effort, will not participate in exam) Gastrointestinal: normoactive bowel sounds Genitourinary: no bladder fullness Skin: warm Musculoskeletal: full muscle strength Neurologic: other (somnolent. Denies SOB or CP) Psychiatric: encephalopathic ICD10 Worksheet Patient Problems: Problems Problem Status Onset Other spondylosis with radiculopathy, lumbar region Acute Other spondylosis with radiculopathy, lumbar region Acute Pain Acute Pain Acute
[2017-06-20 16:29] LABS: BASE EXCESS -1.3 mEq/L (-2.5-2.5); BICARBONATE 21 mEq/L (22-26); MEASURED OXYGEN SATURATION 91 % (92-95); PCO2 31 mmHg (34-38); PO2 62 mmHg (65-75); TCO2 22 mEq/L (23-27)
[2017-06-20] MEDS ORDERED: AZITHROMYCIN IV 500 MG in D5W 250 ML IV SCH (16:30)
[2017-06-20] MEDS ORDERED: cefTRIAXone 2 GM in D5W 50 ML IV SCH (16:30)
--- NOTE | 2017-06-20 16:37 | HOSPPROG ---
Hospitalist Progress Note Assessment/Plan: 76-year-old male with severe L5-S1 radiculopathy. Neurosurgery has planned to do a decompression yet it is noted that he has a leukocytosis and has been febrile. Patient is new to me today -acute pneumonia: possibly aspiration, 2/2 atelectasis due to pain medication, or CAP -acute respiratory failure possibly 2/2 pain medication and pneumonia -acute sepsis: tachypnea, tachycardia, febrile, leukocytosis: Rx rocephin, azithromycin -acute L5-S1 radiculopathy with severe pain: plan ketamine drip Plan: cancel surgery due to pneumoni, transfer to ICU, -Time: 60 minutes of critical care time Subjective: reports he is in pain. Intially very sedated due to pain medication. Reports low back pain, no chest pain or SOB Objective: Vital Signs Temp Pulse Resp BP Pulse Ox 39.2 C H 127 H 24 H 102/61 90 L 06/20/17 15:53 06/20/17 15:53 06/20/17 15:53 06/20/17 15:53 06/20/17 15:53 Laboratory Results 06/20/17 12:10 06/20/17 11:05 06/19/17 06/20/17 06/21/17 05:59 05:59 05:59 Intake Total 500 Output Total 300 Balance 200 PT 14.3 SEC (12.0-15.0) 06/20/17 11:05 INR 1.12 (0.83-1.16) 06/20/17 11:05 - Time Spent With Patient Time Spent with Patient: greater than 35 minutes Time Spent with Patient: Greater than 35 minutes spent on this patients care, greater than 50% of time spent counseling, educating, and coordinating care regarding the above mentioned plan. - Pending Discharge Pending Discharge Within 24 Hours: No Pending Discharge Within 48 Hours: No - Physical Exam Constitutional: other (acute respiratory distress; febrile, in pain) Eyes: PERRL, anicteric sclera Ears, Nose, Mouth, Throat: moist mucous membranes, hearing normal Cardiovascular: regular rate and rhythym, no murmur, rub, or gallop, tachycardia Respiratory: no respiratory distress, reduced air movement, inspiratory crackles , rhonchi Gastrointestinal: normoactive bowel sounds, soft, non-tender abdomen, no palpable masses Genitourinary: no bladder fullness Skin: warm Musculoskeletal: generalized weakness Neurologic: other (drowsy) ICD10 Worksheet Patient Problems: Problems Problem Status Onset Pain Acute Pain Acute Other spondylosis with radiculopathy, lumbar region Acute Other spondylosis with radiculopathy, lumbar region Acute
[2017-06-20] MEDS ORDERED: chlorproMAZINE HCL 50 MG in NS 50 ML IV ONE (16:45)
[2017-06-20] MEDS ORDERED: AMPICILLIN/SULBACTAM 3 GM in NS 100 ML IV SCH ×2 (16:45→18:00)
[2017-06-20] MEDS ORDERED: KETAMINE 100 MG/10 ML SYR IVP ONE ×2 (16:48→18:15)
[2017-06-20] MEDS ORDERED: IOPAMIDOL (ISOVUE 370) 100 ML BTL IV ONE (16:51)
[2017-06-20] MEDS ORDERED: KETAMINE 100 MG/10 ML SYR ONE (16:58)
[2017-06-20] MEDS ORDERED: ACETAMINOPHEN 650 MG SUPP PR PRN (18:09)
[2017-06-20] MEDS: NS 1,000 ML IV SCH (18:11)
[2017-06-20] MEDS ORDERED: NS W/ 20 KCl/L 1,000 ML IV SCH (18:15)
[2017-06-20] MEDS: methylPREDNISolone SOD SUCC 40 MG/ML VIAL IVP SCH ×2 (18:33→23:23)
[2017-06-20] MEDS: KETAMINE 100 MG in D5W 100 ML IV SCH (18:48)
[2017-06-20] MEDS: HYDROmorphONE/DILAUDID 1 MG/ML SYR IVP PRN (19:56)
[2017-06-20] MEDS: LIDOCAINE 5% 1 EA PATCH TD SCH (20:17)
[2017-06-20] MEDS: AZITHROMYCIN IV 500 MG in D5W 250 ML IV SCH (20:29)
[2017-06-20] MEDS: IPRATROPIUM/ALBUTEROL 3 ML DEYVIAL IH SCH (20:54)
[2017-06-20] MEDS: PANTOPRAZOLE SODIUM 40 MG in NS 100 ML IV SCH (21:37)
[2017-06-20] MEDS: SENNOSIDES/DOCUSATE SODIUM TAB PO SCH (22:44)
[2017-06-20] MEDS: METHOCARBAMOL 1,000 MG in NS 50 ML IV SCH (23:23)
[2017-06-21] MEDS ORDERED: NS BOLUS 1000 ML (Wide open) IV ONE (01:00)
[2017-06-21] MEDS: IPRATROPIUM/ALBUTEROL 3 ML DEYVIAL IH SCH ×6 (02:06→21:23)
[2017-06-21] MEDS: NS 1,000 ML IV SCH ×2 (03:30→15:45)
[2017-06-21] MEDS: methylPREDNISolone SOD SUCC 40 MG/ML VIAL IVP SCH ×4 (05:31→23:44)
[2017-06-21 05:53] LABS: HEMATOCRIT 36.9 % (40.0-51.0); HEMOGLOBIN 12.2 g/dL (13.7-17.5); MEAN CELL HEMOGLOBIN 29.6 pg (27.9-34.1); MEAN CELL HEMOGLOBIN CONCENTR. 33.1 g/dL (32.4-36.7); MEAN CELL VOLUME 89.6 fL (81.5-99.8); RED BLOOD CELL COUNT 4.12 10^6/uL (4.40-6.38); RED CELL DISTRIBUTION WIDTH 14.1 % (11.5-15.2)
[2017-06-21 05:58] LABS: ANION GAP 10 mEq/L (8-16); CALCIUM 7.4 mg/dL (8.5-10.4); CARBON DIOXIDE 19 mEq/l (22-31); CHLORIDE 113 mEq/L (97-110); CREATININE 0.8 mg/dL (0.7-1.3); GLOMERULAR FILTRATION RATE > 60; GLUCOSE 176 mg/dL (70-100); POTASSIUM 4.2 mEq/L (3.5-5.2); SODIUM 142 mEq/L (134-144); URIC ACID 4.3 mg/dL (3.5-8.5)
[2017-06-21] MEDS ORDERED: METHOCARBAMOL 1,000 MG in NS 50 ML IV SCH (06:00)
[2017-06-21] MEDS: METHOCARBAMOL 750 MG TAB PO SCH (06:26)
--- NOTE | 2017-06-21 07:34 | NEUSURGPN ---
Assessment/Plan: Assessment: 76 yo male that is 3 months s/p TLIF L2/3 with PSF L2-L4 with Dr Ellis. Admitted to IM with severe RLE pain Plan: -s/p L spine fusion-pt will need extension of fusion from [id number] hold for surgery at this time due to other medical issues. 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 Originally scheduled for surgery today but delayed to underlying medical issues -new MRI of the L spine with and wo pending -pt with pneumonia-IM working with pt on this -cultures pending -PT/OT as tolerated -IM/critical care working with Chavo on getting cleared and ready for surgery -please call with any changes or issues -RN/Pt/family updated Subjective: Awake and alert. NAD. Eating/drinking and voiding. No amezcua/neck/abd or gu complaints. Objective: AAO x 3, PERRLA/EOMI no droop CN 2-12 grossly intact +lt touch 5/5 BLE = Neuro Check Frequency: per routine Urinary Catheter in Place: Yes Urinary Catheter Indication: Other (Use Comment) (in bed) Catheter Insertion Date: 06/20/17 - Physician Discussed Patient with Dr.: [facility] Physical Exam - Vitals, I&O, Labs I and O 06/20/17 06/21/17 06/22/17 05:59 05:59 05:59 Intake Total 500 1200 Output Total 300 1200 Balance 200 0 Weight 78.925 kg Intake: Oral (ml) 500 0 IV Intake (ml) 1200 Output: Urine (ml) 300 1200 Urinal 300 1200 Other: Number of Stools Urinal 0 Vital Signs Temp Pulse Resp BP Pulse Ox 36.9 C 80 20 104/52 L 98 06/20/17 23:00 06/21/17 06:01 06/21/17 06:01 06/21/17 05:00 06/21/17 05:00 Laboratory Results 06/21/17 05:00 06/21/17 05:00 ICD10 Worksheet Patient Problems: Problems Problem Status Onset Other spondylosis with radiculopathy, lumbar region Acute Other spondylosis with radiculopathy, lumbar region Acute Pain Acute Pain Acute
[2017-06-21] MEDS ORDERED: ceFAZolin 2 GM/DEXTROSE 100 ML IV ONE (08:00)
--- NOTE | 2017-06-21 08:12 | HOSPPROG ---
Hospitalist Progress Note Assessment/Plan: 76-year-old male with severe L5-S1 radiculopathy. Neurosurgery has planned to do a decompression yet it is noted that he has a leukocytosis and has been febrile. -acute pneumonia: possibly aspiration, 2/2 atelectasis due to pain medication, or CAP; Oxygen needs declining and now 3l/min -acute respiratory failure possibly 2/2 pain medication and pneumonia -acute sepsis: tachypnea, tachycardia, febrile, leukocytosis: Rx rocephin, azithromycin -acute L5-S1 radiculopathy with severe pain: ketamine drip has resolved his pain -aspiration risk: will need EMBEDDED FIRMWARE ENGINEER evaluation Plan: cancel surgery due to pneumonia, -Time: 45 minutes Subjective: alert and responsive; reports his pain is resolved. Able to move and roll in bed without discomfort. no fever today, no nausea, vomiting. NOted some coughing while drinking some water. Objective: Vital Signs Temp Pulse Resp BP Pulse Ox 36.9 C 80 20 104/52 L 98 06/20/17 23:00 06/21/17 06:01 06/21/17 06:01 06/21/17 05:00 06/21/17 05:00 Laboratory Results 06/21/17 05:00 06/21/17 05:00 06/20/17 06/21/17 06/22/17 05:59 05:59 05:59 Intake Total 500 1200 Output Total 300 1200 Balance 200 0 PT 14.3 SEC (12.0-15.0) 06/20/17 11:05 INR 1.12 (0.83-1.16) 06/20/17 11:05 Laboratory Tests 06/20/17 06/20/17 06/20/17 04:47 11:05 11:05 WBC 17.85 H 13.70 H Calcium Troponin I C-Reactive Protein Albumin 3.1 L Procalcitonin 06/20/17 06/20/17 06/20/17 12:10 14:30 16:20 WBC Calcium Troponin I < 0.012 C-Reactive Protein 243.1 H Albumin Procalcitonin 2.77 H 06/20/17 06/21/17 06/21/17 17:25 05:00 05:00 WBC 14.32 H Calcium 7.4 L D Troponin I < 0.012 C-Reactive Protein Albumin Procalcitonin - Physical Exam Constitutional: no apparent distress, other (alert with slow, slurred speech) Eyes: PERRL, anicteric sclera Ears, Nose, Mouth, Throat: dry mucous membranes Cardiovascular: regular rate and rhythym, no murmur, rub, or gallop Respiratory: no respiratory distress, reduced air movement, other (inspiratory rales at bases) Gastrointestinal: normoactive bowel sounds, soft, non-tender abdomen Genitourinary: no bladder fullness, other (james) Musculoskeletal: full muscle strength Neurologic: AAOx3, CN II-XII Intact ICD10 Worksheet Patient Problems: Problems Problem Status Onset Pain Acute Pain Acute Other spondylosis with radiculopathy, lumbar region Acute Other spondylosis with radiculopathy, lumbar region Acute
[2017-06-21] MEDS ORDERED: GADOBUTROL 10 ML VIAL IVP ONE (08:57)
[2017-06-21] MEDS: METHOCARBAMOL 1,000 MG in NS 50 ML IV SCH ×3 (09:04→22:40)
[2017-06-21] MEDS: FLUTICASONE/SALMETER 250/50MCG DISKUS IH SCH ×2 (10:58→21:24)
[2017-06-21] MEDS: AZITHROMYCIN IV 500 MG in D5W 250 ML IV SCH (11:02)
[2017-06-21] MEDS: GLUCOSAMINE/CHONDROITIN CAP PO SCH (11:04)
[2017-06-21] MEDS: ALLOPURINOL 300 MG TAB PO SCH (11:04)
[2017-06-21] MEDS: guaiFENesin 200 MG TAB PO SCH ×2 (11:04→22:39)
[2017-06-21] MEDS: CETIRIZINE 10 MG TAB PO SCH (11:04)
[2017-06-21] MEDS: MULTIVITAMINS 1 EACH TAB PO SCH (11:05)
[2017-06-21] MEDS: SENNOSIDES/DOCUSATE SODIUM TAB PO SCH ×2 (11:05→22:39)
[2017-06-21] MEDS: predniSONE 10 MG TAB PO SCH (11:05)
[2017-06-21] MEDS: ENOXAPARIN 40 MG/0.4 ML SYR SC SCH (11:10)
[2017-06-21] MEDS: PANTOPRAZOLE SODIUM 40 MG in NS 100 ML IV SCH (11:11)
[2017-06-21] MEDS: LIDOCAINE 5% 1 EA PATCH TD SCH (11:11)
--- NOTE | 2017-06-21 13:31 | GCON ---
[f rep st] CONSULTATION PULMONARY CRITICAL CARE CONSULTATION DATE OF CONSULTATION: 06/20/2017 REASON FOR CONSULTATION: Acute respiratory failure in a patient with intractable back pain, critical access hospital ed for lumbar surgery. HISTORY: The patient is a 76-year-old gentleman. He was admitted early yesterday with intractable back pain. He lives in [place]. He has had 4 previous back surgeries. His last, I believe, was in February with a TLIF done by Dr. Ellis from L2 to L4 bilaterally. He subsequently had increasing pain. He was re-evaluated a couple weeks ago as an inpatient and subsequently had a Kenalog and lid ocaine injection at L2. However, the pain became more intractable. He was taking more narcotics an d becoming significantly more lethargic at home. He was thus readmitted to the hospital yesterday w ith plan for surgery. However, secondary to medical instability, this has been delayed. He became hypoxemic yesterday, possibly aspirated. He was moved to the intensive care unit yesterda y afternoon as a stat call. Chest x-ray showed bilateral pulmonary infiltrates possibly consistent with aspiration pneumonia. This was felt to have happened in part secondary to his somnolence. Sep sis could not be excluded. Lactate was not elevated. He was treated with intravenous fluids and an tibiotics. Blood cultures were obtained. He was febrile and tachycardic with an associated leukocy tosis. Overnight, in the intensive care unit, he has stabilized. Blood pressure is stable. He is on 3-4 L of nasal cannula oxygen. He is on ketamine for pain control along with IV Dilaudid, oxycodone, Lyudmila u-Medrol, and p.r.n. Valium. Antibiotics include azithromycin and ceftriaxone. PAST MEDICAL HISTORY: Remarkable for asthma. There is a history of osteoporosis, arthritis, as wel l as gout. PAST SURGICAL HISTORY: Includes 4 previous lumbar surgeries and vertebroplasty. MEDICATIONS: At home, included guaifenesin, oxycodone, prednisone at 10 mg per day, Zantac, DuoNeb, Robaxin, Advair, Valium, Prolia, Zyrtec, allopurinol and p.r.n. medications. SOCIAL HISTORY: The patient is with a very supportive . Lives in [place]. He smoke d cigarettes in the past. Significant alcohol is negative. FAMILY HISTORY: Noncontributory. REVIEW OF SYSTEMS: Unobtainable currently from the patient. PHYSICAL EXAMINATION: GENERAL: Reveals a gentleman who is sedated, but arousable. VITAL SIGNS: B lood pressure is 115/50, heart rate 85 with sinus rhythm on the monitor, on 4 L of oxygen saturation s are 96%, respiratory rate is 14. He is afebrile. NECK: Unremarkable for lymphadenopathy or thyr omegaly. There is no jugular venous distention. HEENT: Nasal cannula oxygen is in place. The muc ous membranes are somewhat dry. CHEST: Clear bilaterally. Voluntary deep inspirations are good. There are no wheezes, rales, or rhonchi. HEART: Regular in rate and rhythm. There is a soft systo lic murmur. No gallops. ABDOMEN: Soft and nontender. There is no organomegaly. Bowel sounds are present, but reduced. BACK: Was not examined. EXTREMITIES: Unremarkable for edema, cords, or ten derness. Sequential compression devices are in place. GENITOURINARY: A Spencer catheter is in place with good urine output. IMAGING: Chest x-ray yesterday was reviewed. There are increased markings at the bases, more promi nent on the right than the left. However, both bases have infiltrate/atelectasis. Hypoventilatory changes are noted. LABORATORY: White blood cell count is 14,000, hematocrit 36.9, platelets are 266,000. PT and PTT a re normal. Arterial blood gas yesterday probably on 15 L of oxygen showed a pH of 7.45, pCO2 of 31, and pO2 of 62. This was prior to his transfer to the intensive care unit. No subsequent blood gas has been obtained. Sodium is 142, potassium 4.2, CO2 of 19, anion gap 10, BUN 18 with creatinine 0 .8, glucose is 176, calcium 7.4. Troponins are negative. Procalcitonin yesterday was elevated. Ve nous lactate was 1.6. ASSESSMENT AND PLAN: 1. Acute respiratory failure with transient hypoxemia and hypotension. He does have pulmonary infi ltrates and may have aspirated secondary to decreased mental status and decreased ability to protect his airway secondary to sedation from medications. He also has a history of reactive airways disea se and previous smoking. This may have been playing a role as well, although he has does not have a ny wheezing on examination today. He has improved significantly overnight. He is on 3-4 L and rest ing comfortably. His lungs are clear, without evidence of pneumonia, consolidation, or wheezing. Mitchell melgar is on appropriate antibiotics, bronchodilator therapies, and steroids. The latter can be reduced. 2. Sepsis. He was hypotensive with other signs and symptoms of sepsis. This has rapidly improved. He is no longer hypotensive and has not required pressors. 3. Lumbar spine disease. He does have severe lumbar disease associated with intractable back pain. He is on ketamine by intravenous drip for this, along with narcotics and other medications. Back pain is currently controlled. Further surgery is planned. Because he has stabilized quickly, it is very possible that he will be able to undergo surgery tomorrow. This remains, however, to be deter mined. 4. Intractable back pain secondary to above. 5. History of reactive airways disease, asthma. He also smoked cigarettes in the past. 6. History of other medical problems, as outlined above. 7. Deep vein thrombosis prophylaxis, on enoxaparin. 8. Gastrointestinal prophylaxis, on famotidine. 9. Nutrition, currently on hold secondary to decreased mental status from medications. P.o. medica tions need to be adjusted and changed. If n.p.o. status is prolonged, a feeding tube may be needed. PLAN AND RECOMMENDATIONS: The patient will be kept in the intensive care unit. Bronchopulmonary th erapies and antibiotics will be maintained. Steroids will be decreased. Ketamine and pain control will be maintained. A PICC line has been requested for better venous access. A repeat lumbar MRI i s pending. Results will be awaited. Neurosurgery will continue to follow the patient closely. Further plans and recommendations will be made based on his progress over the next 12-24 hours. /[id number]/MODL
[2017-06-21] MEDS: PATCH REMOVAL 1 EA PATCH TD SCH (22:47)
[2017-06-21] MEDS: DIAZEPAM 10 MG/2 ML SYR IVP PRN (23:44)
[2017-06-22] MEDS: IPRATROPIUM/ALBUTEROL 3 ML DEYVIAL IH SCH ×6 (02:51→21:43)
[2017-06-22] MEDS: methylPREDNISolone SOD SUCC 40 MG/ML VIAL IVP SCH ×4 (05:48→23:55)
[2017-06-22 06:00] LABS: ADD MORPH? NO; ADD SCAN? YES; ATYPICAL LYMPHOCYTE FLAG 0 (0-99); FRAGMENT RBC FLAG 0 (0-99); HEMATOCRIT 33.5 % (40.0-51.0); HEMOGLOBIN 11.4 g/dL (13.7-17.5); LIPEMIA HEMOLYSIS FLAG 90 (0-99); MEAN CELL VOLUME 88.2 fL (81.5-99.8); MEAN PLATELET VOLUME 9.1 fL (8.7-11.7); PLATELET CLUMPS FLAG 0 (0-99); PLATELET COUNT 216 10^3/uL (150-400)
[2017-06-22 06:03] LABS: LEFT SHIFT FLG 180 (0-99)
[2017-06-22 06:11] LABS: INR 1.47 (0.83-1.16); PROTIME(PATIENT) 17.8 SEC (12.0-15.0)
[2017-06-22 06:12] LABS: APTT 33.6 SEC (23.0-38.0)
[2017-06-22 06:20] LABS: ALANINE AMINOTRANSFERASE 45 IU/L (21-72); ALBUMIN 2.4 g/dL (3.5-5.0); ALKALINE PHOSPHATASE 94 IU/L (38-126); ANION GAP 12 mEq/L (8-16); ASPARTATE AMINOTRANSFERASE 45 IU/L (17-59); BILIRUBIN,TOTAL 0.4 mg/dL (0.1-1.4); CALCIUM 7.4 mg/dL (8.5-10.4); CARBON DIOXIDE 18 mEq/l (22-31); CHLORIDE 118 mEq/L (97-110); CREATININE 0.7 mg/dL (0.7-1.3); GLOMERULAR FILTRATION RATE > 60; GLUCOSE 210 mg/dL (70-100); POTASSIUM 3.8 mEq/L (3.5-5.2); SODIUM 148 mEq/L (134-144); TOTAL PROTEIN 4.5 g/dL (6.3-8.2)
[2017-06-22] MEDS: METHOCARBAMOL 1,000 MG in NS 50 ML IV SCH (06:25)
[2017-06-22 06:47] LABS: ADD DIFF? YES; SCAN POSITIVE
[2017-06-22 06:49] LABS: PLATELET ESTIMATE ADEQUATE (ADEQ)
[2017-06-22] MEDS: KETAMINE 100 MG in D5W 100 ML IV SCH (08:08)
--- NOTE | 2017-06-22 08:09 | HOSPPROG ---
Hospitalist Progress Note Assessment/Plan: 76-year-old male with severe L5-S1 radiculopathy. Neurosurgery has planned to do a decompression and fusion yet it is noted that he has a leukocytosis and has been febrile. -acute pneumonia: possibly aspiration, 2/2 atelectasis due to pain medication, or CAP; Oxygen needs declining and now 3l/min. This probable bacterial as procalcitonin is elevated. Abx rocephin/zithro and improving respiratory status. CXR yesterday is improved. Oxygenation improving and now on room air. -acute respiratory failure possibly 2/2 pain medication and pneumonia; now improving -leukocytosis initial high, then declined, now slightly elevated again. Possibly 2/2 steroids -acute sepsis: tachypnea, tachycardia, febrile, leukocytosis: Rx rocephin, azithromycin; sepsis resolved. Lactate was normal -acute L5-S1 radiculopathy with severe pain: ketamine drip has resolved his pain. Will discuss with neurosurgery. Plan epidural injection 06/23 for pain relief. If this is not successful, then would suggest neurosurgery proceed with planned fusion. -aspiration risk: will need TRAFFIC REPRESENTATIVE evaluation Plan: Pain relief with percocet, epidural injection 06/23; transfer from ICU. -Time: Subjective: reports pain is 3/10 and feels well; no chest pain, SOB Objective: Vital Signs Temp Pulse Resp BP Pulse Ox 36.1 C 100 23 H 104/55 L 99 06/22/17 07:31 06/22/17 07:31 06/22/17 07:31 06/22/17 07:31 06/22/17 07:31 Laboratory Results 06/22/17 05:45 06/22/17 05:45 06/21/17 06/22/17 06/23/17 05:59 05:59 05:59 Intake Total 1200 2996.6 Output Total 1200 2375 Balance 0 621.6 PT 17.8 SEC (12.0-15.0) H 06/22/17 05:45 INR 1.47 (0.83-1.16) H 06/22/17 05:45 - Time Spent With Patient Time Spent with Patient: greater than 35 minutes Time Spent with Patient: Greater than 35 minutes spent on this patients care, greater than 50% of time spent counseling, educating, and coordinating care regarding the above mentioned plan. - Pending Discharge Pending Discharge Within 24 Hours: No Pending Discharge Within 48 Hours: No - Physical Exam Constitutional: no apparent distress Eyes: PERRL Ears, Nose, Mouth, Throat: moist mucous membranes Cardiovascular: regular rate and rhythym, no murmur, rub, or gallop Respiratory: no respiratory distress, other (rales in LLL, no ecophony) Gastrointestinal: normoactive bowel sounds, soft, non-tender abdomen Genitourinary: no bladder fullness Skin: warm Musculoskeletal: generalized weakness, other (reports pain in right lower back, ) Neurologic: AAOx3, CN II-XII Intact Psychiatric: interacting appropriately ICD10 Worksheet Patient Problems: Problems Problem Status Onset Pain Acute Pain Acute Other spondylosis with radiculopathy, lumbar region Acute Other spondylosis with radiculopathy, lumbar region Acute
[2017-06-22] MEDS: ALLOPURINOL 300 MG TAB PO SCH ×2 (08:26→11:58)
[2017-06-22] MEDS: GLUCOSAMINE/CHONDROITIN CAP PO SCH ×2 (08:28→11:57)
[2017-06-22] MEDS: SENNOSIDES/DOCUSATE SODIUM TAB PO SCH ×2 (08:28→21:32)
[2017-06-22] MEDS: guaiFENesin 200 MG TAB PO SCH ×2 (08:28→11:57)
[2017-06-22] MEDS: ENOXAPARIN 40 MG/0.4 ML SYR SC SCH ×2 (08:28→10:50)
[2017-06-22] MEDS: MULTIVITAMINS 1 EACH TAB PO SCH ×2 (08:28→11:57)
[2017-06-22] MEDS: CETIRIZINE 10 MG TAB PO SCH ×2 (08:28→11:57)
[2017-06-22] MEDS: PANTOPRAZOLE SODIUM 40 MG in NS 100 ML IV SCH (08:35)
[2017-06-22] MEDS: FLUTICASONE/SALMETER 250/50MCG DISKUS IH SCH ×2 (09:09→21:43)
[2017-06-22] MEDS: AZITHROMYCIN IV 500 MG in D5W 250 ML IV SCH (10:04)
[2017-06-22] MEDS: LIDOCAINE 5% 1 EA PATCH TD SCH (10:06)
--- NOTE | 2017-06-22 10:32 | SOAPPROG ---
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 Plan: stable, will plan for lumbar surgery when cleared by IM pneumonia: on Antibiotics, no fevers but still with leukocytosis PT/OT please call with neuro changes discussed with Dr Palomino 06/22/17 10:30 Subjective: + back pain, no leg pain, no weakness, Objective: Vital Signs Temp Pulse Resp BP Pulse Ox 36.6 C 101 H 18 123/43 H 96 06/22/17 09:59 06/22/17 10:00 06/22/17 10:00 06/22/17 10:00 06/22/17 10:00 Laboratory Results 06/22/17 05:45 06/22/17 05:45 06/21/17 06/22/17 06/23/17 05:59 05:59 05:59 Intake Total 1200 2996.6 Output Total 1200 2375 Balance 0 621.6 PT 17.8 SEC (12.0-15.0) H 06/22/17 05:45 INR 1.47 (0.83-1.16) H 06/22/17 05:45 AAOX4, +FC PERRL, EOMI, no facial droop 5/5 + light touch ICD10 Worksheet Patient Problems: Problems Problem Status Onset Other spondylosis with radiculopathy, lumbar region Acute Other spondylosis with radiculopathy, lumbar region Acute Pain Acute Pain Acute
[2017-06-22] MEDS: oxyCODONE IR 5 MG TAB PO PRN ×3 (10:40→21:31)
--- NOTE | 2017-06-22 13:01 | PDINTPN ---
[facility] Progress Note Assessment/Plan: Assessment/Plan: * Acute respiratory failure secondary to pneumonia * Sepsis-resolved * Lumbar spine disease-stable from pulmonary standpoint for surgery * Intractable back pain-controlled on very minimal ketamine drip -agree with discontinuation of ketamine drip * History of asthma * History of gout * VTE prophylaxis * Stress ulcer prophylaxis * Pain-well controlled Subjective: Pain is well controlled. He denies any shortness of breath, cough or production of sputum. There is no current fever Objective: Vital Signs Temp Pulse Resp BP Pulse Ox 36.6 C 98 17 106/51 L 95 06/22/17 09:59 06/22/17 12:00 06/22/17 12:00 06/22/17 12:00 06/22/17 12:00 Laboratory Results 06/22/17 05:45 06/22/17 05:45 06/21/17 06/22/17 06/23/17 05:59 05:59 05:59 Intake Total 1200 2996.6 Output Total 1200 2375 Balance 0 621.6 PT 17.8 SEC (12.0-15.0) H 06/22/17 05:45 INR 1.47 (0.83-1.16) H 06/22/17 05:45 Physical Exam - Physical Exam General Appearance: alert, no apparent distress, mild distress EENT: PERRL/EOMI, normal ENT inspection, pharynx normal, TMs normal Neck: non-tender, full range of motion, supple, normal inspection Respiratory: crackles (Few basilar), No respiratory distress, No stridor, No wheezing Cardiac/Chest: normal peripheral pulses, regular rate, rhythm Peripheral Pulses: 2+: carotid (R), carotid (L), femoral (R), femoral (L), dorsalis-pedis (R), dorsalis-pedis (L) Abdomen: normal bowel sounds, non-tender, soft Male Genitalia: deferred Rectal: deferred Skin: normal color, warm/dry Neuro/Psych: no motor/sensory deficits, alert, normal mood/affect, oriented x 3 ICD10 Worksheet Patient Problems: Problems Problem Status Onset Other spondylosis with radiculopathy, lumbar region Acute Other spondylosis with radiculopathy, lumbar region Acute Pain Acute Pain Acute
[2017-06-22] MEDS: METHOCARBAMOL 500 MG TAB PO SCH ×2 (14:07→21:32)
[2017-06-22] MEDS: ACETAMINOPHEN 325 MG TAB PO PRN (21:32)
[2017-06-22] MEDS: PATCH REMOVAL 1 EA PATCH TD SCH (23:22)
[2017-06-23] MEDS: IPRATROPIUM/ALBUTEROL 3 ML DEYVIAL IH SCH ×6 (02:40→23:01)
[2017-06-23 04:15] LABS: % IMMATURE GRANULYOCYTES 1.3 % (0.0-1.1); ABSOLUTE IMMATURE GRANULOCYTES 0.18 10^3/uL (0.00-0.10); ADD DIFF? NO; ADD MORPH? NO; ADD SCAN? NO; ATYPICAL LYMPHOCYTE FLAG 0 (0-99); FRAGMENT RBC FLAG 0 (0-99); HEMATOCRIT 33.9 % (40.0-51.0); HEMOGLOBIN 11.2 g/dL (13.7-17.5); LEFT SHIFT FLG 20 (0-99); LIPEMIA HEMOLYSIS FLAG 80 (0-99); MEAN CELL HEMOGLOBIN 29.2 pg (27.9-34.1); MEAN CELL VOLUME 88.5 fL (81.5-99.8); MEAN PLATELET VOLUME 9.2 fL (8.7-11.7); PLATELET CLUMPS FLAG 0 (0-99); PLATELET COUNT 202 10^3/uL (150-400); RED BLOOD CELL COUNT 3.83 10^6/uL (4.40-6.38); RED CELL DISTRIBUTION WIDTH 14.3 % (11.5-15.2)
[2017-06-23 04:23] LABS: INR 1.26 (0.83-1.16); PROTIME(PATIENT) 15.8 SEC (12.0-15.0)
[2017-06-23 04:35] LABS: ALANINE AMINOTRANSFERASE 46 IU/L (21-72); ALBUMIN 2.6 g/dL (3.5-5.0); ALKALINE PHOSPHATASE 110 IU/L (38-126); ANION GAP 12 mEq/L (8-16); ASPARTATE AMINOTRANSFERASE 28 IU/L (17-59); BILIRUBIN,TOTAL 0.4 mg/dL (0.1-1.4); CALCIUM 7.8 mg/dL (8.5-10.4); CARBON DIOXIDE 18 mEq/l (22-31); CHLORIDE 115 mEq/L (97-110); CREATININE 0.7 mg/dL (0.7-1.3); GLOMERULAR FILTRATION RATE > 60; GLUCOSE 279 mg/dL (70-100); POTASSIUM 3.7 mEq/L (3.5-5.2); SODIUM 145 mEq/L (134-144); TOTAL PROTEIN 4.6 g/dL (6.3-8.2)
[2017-06-23] MEDS: METHOCARBAMOL 500 MG TAB PO SCH ×3 (05:48→21:05)
[2017-06-23] MEDS: methylPREDNISolone SOD SUCC 40 MG/ML VIAL IVP SCH ×3 (05:49→16:59)
[2017-06-23] MEDS: LIDOCAINE 5% 1 EA PATCH TD SCH (07:44)
[2017-06-23] MEDS: ENOXAPARIN 40 MG/0.4 ML SYR SC SCH ×2 (07:44→09:11)
[2017-06-23] MEDS: AZITHROMYCIN IV 500 MG in D5W 250 ML IV SCH (07:44)
[2017-06-23] MEDS: CETIRIZINE 10 MG TAB PO SCH (07:44)
[2017-06-23] MEDS: ALLOPURINOL 300 MG TAB PO SCH (07:44)
[2017-06-23] MEDS: guaiFENesin 200 MG TAB PO SCH ×2 (07:44→21:04)
[2017-06-23] MEDS: SENNOSIDES/DOCUSATE SODIUM TAB PO SCH ×2 (07:44→21:05)
[2017-06-23] MEDS: GLUCOSAMINE/CHONDROITIN CAP PO SCH (07:45)
--- NOTE | 2017-06-23 08:38 | NEUSURGPN ---
Assessment/Plan: Assessment: 76 yo M with low back pain related to his lumbar DJD adjacnet ot his prior fusion. Plan: stable, will plan for lumbar surgery when cleared by IM- Patient has had blood culture that have come back positive for gram positive cocci and urine cultures with 2 different colonies growing. Discussed with Patient that we can not proceed with new hardware placement with a new active infection. This will need to be addressed with treatment from the medicine team. He is scheduled for an SANA today, nurse will check with IR if this procedure should be held given his new culture findings pneumonia: on Antibiotics, no fevers but still with leukocytosis PT/OT please call with neuro changes discussed with Dr Palomino Called and discussed that will need to hold on any further surgery until clearance from ID and medicine. Subjective: Resting comfortable in chair, pain currently under control Objective: NAD A&Ox3 MAEx4 5/5 and equal in BUE and BLE Catheter Insertion Date: 06/20/17 - Physician Discussed Patient with Dr.: Palomino Neurosurgery Physical Exam - Vitals, I&O, Labs I and O 06/22/17 06/23/17 06/24/17 05:59 05:59 05:59 Intake Total 2996.6 925.9 Output Total 2375 1050 Balance 621.6 -124.1 Intake: Oral (ml) 400 IV Infused (ml) 2996.6 525.9 Ketamine 100 mg In D5w 75.6 52.9 100 ml @ 0.1 MG/KG/HR 8. 68 mls/hr IV CONT SHARRI Rx# :[id number] Ns 1,000 ml @ 125 mls/hr 2921 473 IV CONT SHARRI Rx#: [id number] Output: Urine (ml) 2375 1050 Catheter 2375 400 Toilet 650 Other: Number of Stools Toilet 1 Microbiology 06/20/17 12:00 Blood Panel (PCR) - Final Blood No Organism Detected Vital Signs Temp Pulse Resp BP Pulse Ox 36.8 C 86 18 123/53 H 92 06/23/17 08:00 06/23/17 08:00 06/23/17 08:00 06/23/17 08:00 06/23/17 08:00 Laboratory Results 06/23/17 04:00 06/23/17 04:00 ICD10 Worksheet Patient Problems: Problems Problem Status Onset Other spondylosis with radiculopathy, lumbar region Acute Other spondylosis with radiculopathy, lumbar region Acute Pain Acute Pain Acute
[2017-06-23] MEDS: FLUTICASONE/SALMETER 250/50MCG DISKUS IH SCH ×2 (09:38→23:01)
--- NOTE | 2017-06-23 11:02 | HOSPPROG ---
Hospitalist Progress Note Assessment/Plan: #Gram positive cocci bacteremia: cultures positive today. Suspect pulmonary source. Cont CTX, azithro. await ID and sensitivities #CAP PNA: possibly due to aspiration. Cont IV abx #Acute hypoxic resp failure: resolved. Due to PNA #L5-S1 radiculopathy: NSGY plans for surgery once acute illness treated before placing hardware. Epidural injection today. Ambulating #Mild hypernatremia: likely mild insensible losses with PNA. Encourage PO #Sepsis: resolved. #Fever: resolved. Cont IV abs #Tachycardia: EKG personally reviewed, sinus tach. Resolved #Leukocytosis: abx as above. Cultures pending #Acute toxic/metabolic encephalopathy: due to infection and opioids. Resolved #Diet: regular #DVT ppx: Lovenox Disp: warrants inpt admission with PNA, bacteremia. Requires IV abx, pain management Time spent on visit: 50 min counseling pt/ on infection, tx and discussing case with NSGY Subjective: "very frustrated and want to go home" Objective: Vital Signs Temp Pulse Resp BP Pulse Ox 36.8 C 94 18 123/53 H 92 06/23/17 08:00 06/23/17 09:30 06/23/17 09:30 06/23/17 08:00 06/23/17 08:00 Microbiology 06/20/17 12:00 Blood Panel (PCR) - Final Blood No Organism Detected Laboratory Results 06/23/17 04:00 06/23/17 04:00 06/22/17 06/23/17 06/24/17 05:59 05:59 05:59 Intake Total 2996.6 925.9 Output Total 2375 1050 Balance 621.6 -124.1 PT 15.8 SEC (12.0-15.0) H 06/23/17 04:00 INR 1.26 (0.83-1.16) H 06/23/17 04:00 - Physical Exam Constitutional: no apparent distress Eyes: PERRL Ears, Nose, Mouth, Throat: moist mucous membranes Cardiovascular: regular rate and rhythym, no murmur, rub, or gallop Respiratory: no respiratory distress, reduced air movement Gastrointestinal: normoactive bowel sounds, soft, non-tender abdomen Genitourinary: no bladder fullness Skin: warm Musculoskeletal: full muscle strength Neurologic: AAOx3, CN II-XII Intact Psychiatric: interacting appropriately, agitated (angry and raised voice) ICD10 Worksheet Patient Problems: Problems Problem Status Onset Other spondylosis with radiculopathy, lumbar region Acute Other spondylosis with radiculopathy, lumbar region Acute Pain Acute Pain Acute
[2017-06-23] MEDS: oxyCODONE IR 5 MG TAB PO PRN ×2 (12:25→21:14)
--- NOTE | 2017-06-23 14:16 | CPEKG ---
Heart Rate: 125 RR Interval: 480 P-R Interval: 133 QRSD Interval: 84 QT Interval: 292 QTC Interval: 421 P [place]: 50 QRS [place]: -63 T Wave [place]: 16 EKG Severity - ABNORMAL ECG - EKG Impression: SINUS TACHYCARDIA EKG Impression: PROBABLE LEFT ATRIAL ABNORMALITY EKG Impression: LEFT ANTERIOR FASCICULAR BLOCK Electronically Signed By: Librado Pinon 24-Jun-2017 10:55:19
[2017-06-23] MEDS ORDERED: IPRATROPIUM/ALBUTEROL 3 ML DEYVIAL IH PRN (14:23)
[2017-06-23] MEDS: HYDROmorphONE/DILAUDID 1 MG/ML SYR IVP PRN (14:39)
[2017-06-23] MEDS ORDERED: fentaNYL 100 MCG/2 ML INJ ONE (15:23)
[2017-06-23] MEDS ORDERED: IOPAMIDOL (ISOVUE-M 300) 15 ML VIAL ONE (16:06)
[2017-06-23] MEDS ORDERED: TRIAMCINOLONE ACETONIDE 200 MG/5 ML MDV IM ONE (16:06)
[2017-06-23] MEDS: PATCH REMOVAL 1 EA PATCH TD SCH (21:58)
[2017-06-24] MEDS: oxyCODONE IR 5 MG TAB PO PRN ×4 (00:04→20:19)
[2017-06-24] MEDS: methylPREDNISolone SOD SUCC 40 MG/ML VIAL IVP SCH ×4 (00:07→17:37)
[2017-06-24] MEDS: ALTEPLASE 2 MG VIAL IVP PRN ×2 (00:50→00:59)
[2017-06-24 05:32] LABS: HEMATOCRIT 33.7 % (40.0-51.0); HEMOGLOBIN 11.2 g/dL (13.7-17.5); MEAN CELL HEMOGLOBIN CONCENTR. 33.2 g/dL (32.4-36.7); MEAN CELL VOLUME 87.3 fL (81.5-99.8); RED BLOOD CELL COUNT 3.86 10^6/uL (4.40-6.38); RED CELL DISTRIBUTION WIDTH 14.4 % (11.5-15.2)
[2017-06-24 05:56] LABS: ANION GAP 7 mEq/L (8-16); CALCIUM 8.3 mg/dL (8.5-10.4); CARBON DIOXIDE 22 mEq/l (22-31); CHLORIDE 114 mEq/L (97-110); CREATININE 0.8 mg/dL (0.7-1.3); GLOMERULAR FILTRATION RATE > 60; GLUCOSE 226 mg/dL (70-100); POTASSIUM 4.1 mEq/L (3.5-5.2); SODIUM 143 mEq/L (134-144)
[2017-06-24] MEDS: METHOCARBAMOL 500 MG TAB PO SCH ×3 (06:03→21:56)
--- NOTE | 2017-06-24 07:53 | SOAPPROG ---
SOAP Progress Note Assessment/Plan: Assessment: 76 yo male with prior L2-[address] 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 Pneumonia, G+ bacteremia, currently on Azythromycin Day 1 after lumbar SANA, currently comfortable, but needs to assess pain when upright. Plan: PT/OT as tolerated. Evaluate response to SANA PNA/G+bacteremiamanagement per Medicine team will proceed with extension of fusion when medically cleared 06/24/17 07:47 06/24/17 07:54 Subjective: asleep, wakes easily. states he is comfortable. Cannot tell if SANA has helped because he has not been on a walk yet today. Denies numbness, tingling, weakness Objective: Vital Signs Temp Pulse Resp BP Pulse Ox 37.0 C 76 15 150/98 H 92 06/23/17 22:43 06/23/17 23:02 06/23/17 23:02 06/23/17 22:43 06/23/17 23:02 Microbiology 06/20/17 11:45 Urine Culture - Final Urine,Clean Catch Five Or More [place] Types 06/20/17 12:00 Blood Panel (PCR) - Final Blood No Organism Detected Laboratory Results 06/24/17 05:00 06/24/17 05:00 06/23/17 06/24/17 06/25/17 05:59 05:59 05:59 Intake Total 925.9 350 Output Total 1050 950 350 Balance -124.1 -600 -350 PT 15.8 SEC (12.0-15.0) H 06/23/17 04:00 INR 1.26 (0.83-1.16) H 06/23/17 04:00 Neuro: MARTINEZ, sens+LT Follows commands ICD10 Worksheet Patient Problems: Problems Problem Status Onset Other spondylosis with radiculopathy, lumbar region Acute Other spondylosis with radiculopathy, lumbar region Acute Pain Acute Pain Acute
[2017-06-24] MEDS: AZITHROMYCIN IV 500 MG in D5W 250 ML IV SCH (08:16)
[2017-06-24] MEDS: guaiFENesin 200 MG TAB PO SCH ×2 (08:20→20:20)
[2017-06-24] MEDS: MULTIVITAMINS 1 EACH TAB PO SCH (08:20)
[2017-06-24] MEDS: LIDOCAINE 5% 1 EA PATCH TD SCH (08:20)
[2017-06-24] MEDS: SENNOSIDES/DOCUSATE SODIUM TAB PO SCH ×2 (08:20→20:20)
[2017-06-24] MEDS: ENOXAPARIN 40 MG/0.4 ML SYR SC SCH (08:23)
[2017-06-24] MEDS: IPRATROPIUM/ALBUTEROL 3 ML DEYVIAL IH SCH ×3 (09:21→21:01)
[2017-06-24] MEDS: FLUTICASONE/SALMETER 250/50MCG DISKUS IH SCH ×2 (09:21→21:01)
[2017-06-24] MEDS: ACETAMINOPHEN 325 MG TAB PO PRN ×2 (12:08→18:18)
--- NOTE | 2017-06-24 14:22 | HOSPPROG ---
Hospitalist Progress Note Assessment/Plan: Gram positive cocci bacteremia: cultures positive yesterday. Suspect pulmonary source. Cont CTX, azithro. await ID and sensitivities 1/2 bottles + w repeat pending grp A strep, covered by ceftriaxone ID to see given need for repeat surgery CAP PNA: possibly due to aspiration. Cont IV abx Acute hypoxic resp failure: resolved. Due to PNA resolved L5-S1 radiculopathy: NSGY plans for surgery once acute illness treated before placing hardware. Epidural injection today. Ambulating Mild hypernatremia: likely mild insensible losses with PNA. Encourage PO Sepsis: resolved. Fever: resolved. Cont IV abs Tachycardia: EKG personally reviewed, sinus tach. Resolved Leukocytosis: abx as above. Cultures pending Acute toxic/metabolic encephalopathy: due to infection and opioids. Resolved Diet: regular DVT ppx: Lovenox Disp: warrants inpt admission with PNA, bacteremia. Requires IV abx, pain management Subjective: case d/w dr sears. breathing OK. pain OK Objective: Vital Signs Temp Pulse Resp BP Pulse Ox 36.6 C 87 16 141/81 H 97 06/24/17 07:56 06/24/17 09:22 06/24/17 09:22 06/24/17 07:56 06/24/17 09:22 Microbiology 06/20/17 12:00 Blood Panel (PCR) - Final Blood No Organism Detected 06/20/17 11:45 Urine Culture - Final Urine,Clean Catch Five Or More [place] Types Laboratory Results 06/24/17 05:00 06/24/17 05:00 06/23/17 06/24/17 06/25/17 05:59 05:59 05:59 Intake Total 925.9 350 Output Total 1050 950 350 Balance -124.1 -600 -350 PT 15.8 SEC (12.0-15.0) H 06/23/17 04:00 INR 1.26 (0.83-1.16) H 06/23/17 04:00 - Physical Exam Constitutional: no apparent distress, appears nourished Eyes: PERRL, anicteric sclera Ears, Nose, Mouth, Throat: moist mucous membranes, hearing normal Cardiovascular: regular rate and rhythym, no murmur, rub, or gallop Respiratory: no respiratory distress, rhonchi, No no rales or rhonchi Gastrointestinal: normoactive bowel sounds, soft, non-tender abdomen Genitourinary: no bladder fullness, No james in urethra Skin: warm, normal color Musculoskeletal: full muscle strength, no muscle tenderness Neurologic: AAOx3, sensation intact bilaterally Psychiatric: interacting appropriately, not anxious Lymph, Heme, Immunologic: no cervical LAD ICD10 Worksheet Patient Problems: Problems Problem Status Onset Other spondylosis with radiculopathy, lumbar region Acute Other spondylosis with radiculopathy, lumbar region Acute Pain Acute Pain Acute
[2017-06-24] MEDS: PATCH REMOVAL 1 EA PATCH TD SCH (20:34)
--- NOTE | 2017-06-24 21:18 | GCON ---
[f rep st] CONSULTATION INFECTIOUS DISEASE CONSULTATION DATE OF CONSULTATION: 06/24/2017 REFERRING PHYSICIAN: Ayush Hall MD REASON FOR CONSULTATION: Bacteremia. HISTORY OF PRESENT ILLNESS: Patient is a 76-year-old male with a past medical history of multiple b ack surgeries, who I am asked to see in consultation for bacteremia. The patient was admitted on with increasing low back pain. The patient had developed worsening low back pain which cau sed him to collapse. He was transferred from [facility]. Prior to worsening back pain, he did not note any fever or chills. The pat christopher was noted to have somnolence with some of his pain medications, and had associated coughing. E ciao in his hospitalization, he developed hypoxemia and fever with concern for aspiration. He was i nitially started on ampicillin/sulbactam, which was subsequently changed to ceftriaxone and azithrom ycin. These have been continued through today. At the time of patient's fever on 06/20/2017, blood cultures were obtained and 1 of 4 bottles is now showing a lactobacillus species. Repeat blood cul tures from 06/23/2017 are no growth to date. The patient does not have any abdominal pain. Denies nausea, vomiting, or diarrhea. Patient does not take probiotics. Currently, he feels significantly improved with primary complaint being ongoing back pain which is most prominent with sitting. He d oes not note any cough or shortness of breath. He is saturating normally on room air. He has under gone imaging of his spine, which does show a loose screw at L2. He is being followed by Neurosurger y with current plan to extend infusion once medically stable. He has undergone injections in his [facility], including approximately 2 weeks ago and during this hospitalization. Given the above findings, I am now asked to assist in his ongoing management. PAST MEDICAL HISTORY: Lumbar spine disease as above, osteoporosis, asthma, gout. PAST SURGICAL HISTORY: Multiple lumbar surgeries including TLIF at L2-3 and prior lumbar fusion. C holecystectomy. CURRENT MEDICATIONS: Azithromycin 500 mg IV daily, ceftriaxone 1 g IV daily, DuoNeb q.4 hours as ne eded and three times daily scheduled, allopurinol 300 mg p.o. daily, Zyrtec 10 mg p.o. daily, Valium as needed, Lovenox 40 mg subcu daily, Pepcid 20 mg p.o. twice daily, glucosamine/chondroitin 1 marley y, Lidoderm patches, Robaxin 1000 mg p.o. q.8 hours, Solu-Medrol 40 mg IV q.6 hours, multivitamin p. o. daily, Advair twice daily. ALLERGIES: Sulfonamides associated with rash and throat swelling. SOCIAL HISTORY: Patient is a former smoker. He drinks 1 glass a wine daily. No drug use. Travel to [place] in December. FAMILY HISTORY: Noncontributory. REVIEW OF SYSTEMS: Outside that noted in the HPI, remainder of 10 system review is unremarkable. PHYSICAL EXAMINATION: VITAL SIGNS: Temperature 36.9, heart rate 78, respiratory rate 14, blood pre ssure 145/86, oxygen saturation 92% on room air. GENERAL: Patient is well nourished, well develope d, in no acute distress. He appears nontoxic. HEENT: No scleral icterus, conjunctival injection, or conjunctival petechiae. Oropharynx shows no lesions. Mucous membranes are moist. No tenderness over the frontal, maxillary, or mastoid area. NECK: Supple without lymphadenopathy or palpable th yromegaly. CHEST: Clear to auscultation bilaterally without adventitious sounds. Respiratory effo rt is normal. CARDIOVASCULAR: Regular rate and rhythm without murmurs, gallops, rubs. ABDOMEN: S oft, nontender, nondistended. There is no palpable organomegaly. Bowel sounds are present. BACK: Surgical incision present on the lumbar spine without surrounding erythema; nontender to palpation. MUSCULOSKELETAL: No cyanosis, clubbing, or edema. SKIN: No rashes noted. No stigmata of endoca rditis. Skin is warm and dry to touch. NEUROLOGIC: Patient is alert and interacts appropriate wit h the examiner. Cranial nerves 2-12 are grossly intact. Muscle tone and bulk are normal. Sensatio n grossly intact. LABORATORY DATA: White blood cell count 12.5, hematocrit 33.7, platelets 199. Serum creatinine 0.8 , AST 28, ALT 46, bilirubin 0.4, alkaline phosphatase 110, albumin 2.6, C-reactive protein 243, proc alcitonin on 06/20/2017 of 2.7. Chest x-ray dated 06/22/2017 shows left lower lobe atelectasis. Blood cultures with 1 of 4 bottles from 06/20/2017 showing lactobacillus. Blood cultures from 06/23 are pending. IMPRESSION: 1. Positive blood culture for lactobacillus: Unclear if this represents contaminant versus true pa thogen. Clinically he has improved. Suspect this is less likely to be of clinical significance. T ypically would be treated with penicillin derivatives, which he has not received. He does have a lo ose screw in his lumbar spine, although suspect this will unlikely be related to infection from lact obacillus. Repeat blood cultures are pending, which will be of additional utility to determine if b acteremia cleared. If cultures are negative, suspect this represents contamination rather than true pathogen. 2. Probable aspiration pneumonia: Clinically resolved. Has received 5 days of ceftriaxone and christian thromycin. RECOMMENDATIONS: 1. Discontinue ceftriaxone and azithromycin. 2. Follow up blood cultures as available. 3. Observe off antibiotics. 4. Thank you for this consultation. We will continue to follow the patient with you. /[id number]/MODL
[2017-06-24] MEDS: VANCOMYCIN HCL/NORMAL SALINE 250 ML IV SCH (21:58)
[2017-06-25] MEDS: methylPREDNISolone SOD SUCC 40 MG/ML VIAL IVP SCH ×4 (00:50→17:36)
[2017-06-25] MEDS: oxyCODONE IR 5 MG TAB PO PRN ×3 (01:03→20:04)
[2017-06-25] MEDS: METHOCARBAMOL 500 MG TAB PO SCH ×3 (05:56→22:13)
[2017-06-25] MEDS: CETIRIZINE 10 MG TAB PO SCH (07:21)
[2017-06-25] MEDS: ENOXAPARIN 40 MG/0.4 ML SYR SC SCH (07:21)
[2017-06-25] MEDS: guaiFENesin 200 MG TAB PO SCH ×2 (07:21→20:04)
[2017-06-25] MEDS: LIDOCAINE 5% 1 EA PATCH TD SCH (07:21)
[2017-06-25] MEDS: ALLOPURINOL 300 MG TAB PO SCH (07:22)
[2017-06-25] MEDS: MULTIVITAMINS 1 EACH TAB PO SCH (07:22)
[2017-06-25] MEDS: GLUCOSAMINE/CHONDROITIN CAP PO SCH (07:22)
[2017-06-25] MEDS: SENNOSIDES/DOCUSATE SODIUM TAB PO SCH ×2 (07:22→20:07)
[2017-06-25] MEDS: VANCOMYCIN HCL/NORMAL SALINE 250 ML IV SCH (08:52)
[2017-06-25] MEDS: IPRATROPIUM/ALBUTEROL 3 ML DEYVIAL IH SCH ×3 (09:50→21:59)
[2017-06-25] MEDS: FLUTICASONE/SALMETER 250/50MCG DISKUS IH SCH ×2 (09:51→22:04)
--- NOTE | 2017-06-25 12:15 | NEUSURGPN ---
Assessment/Plan: Assessment: 76 yo male with prior L2-[address] 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 Pneumonia, G+ bacteremia, currently on Azythromycin Day 2 after lumbar SANA, has much improved pain from this and able to ambulate better Did have fall this morning off of the toilet,did not hit head, is not in any more pain currently and neuro exam unchanged. Plan: PT/OT as tolerated Continue to monitor pain level after SANA- so far much improved PNA/G+bacteremiamanagement per Medicine team will proceed with extension of fusion when medically cleared Neurosurgery will continue to follow Patient discussed with Dr. Palomino Subjective: Patient currently sp fall off toilet a few minutes a go where he slid down. Denies any dizziness, lightheadedness, weakness in legs. he states he just slipped and fell and decided to just keep sliding down rather than try and grab for anything and risk other injuries. He denies hitting his head, any LOC. He feels much better after the steroid injection and was walking around with his grandkid yesterday down the [place]. Objective: NAD, VSS Alert and oriented X 3 PERRL, EOMI CN II-XII grossly intact BLE 5/5= Sensation intact to lt touch gait- moving well this morning with help of walker Catheter Insertion Date: 06/20/17 - Physician Discussed Patient with Dr.: Palomino Neurosurgery Physical Exam - Vitals, I&O, Labs I and O 06/24/17 06/25/17 06/26/17 05:59 05:59 05:59 Intake Total 350 500 Output Total 950 1150 Balance -600 -650 Intake: Oral (ml) 350 500 Output: Urine (ml) 950 1150 Toilet 950 1150 Other: Intake Quantity Yes Yes Sufficient Number of Voids Toilet 0 1 Microbiology 06/23/17 12:12 Blood Panel (PCR) - Final Blood Staph Coagulase Negative 06/20/17 12:00 Blood Panel (PCR) - Final Blood No Organism Detected Vital Signs Temp Pulse Resp BP Pulse Ox 36.6 C 78 15 103/73 95 06/25/17 07:52 06/25/17 09:51 06/25/17 09:51 06/25/17 07:52 06/25/17 09:51 Laboratory Results 06/24/17 05:00 06/24/17 05:00 ICD10 Worksheet Patient Problems: Problems Problem Status Onset Other spondylosis with radiculopathy, lumbar region Acute Other spondylosis with radiculopathy, lumbar region Acute Pain Acute Pain Acute
--- NOTE | 2017-06-25 13:06 | PCMIDPN ---
Assessment/Plan: Assessment/Plan: * Positive blood cultures: Initial culture showing 1 of 4 bottles with lactobacillus and subsequent repeat cultures now showing 1 of 4 bottles with coagulase-negative Staph. Suspect these represent contamination rather than true bacteremia. Will not proceed with targeted therapy verses either organism. * Pneumonia: Likely had aspiration pneumonia when experienced sedation. Received 5 days of ceftriaxone and azithromycin. This should represent adequate course of treatment and antibiotics have now been discontinued. Continue to observe off antibiotics. Given above findings, no infectious diseases opposition to proceeding with planned spinal surgery. He does have noted loose screw on imaging with considerations being either infectious or mechanical etiology. Think only definitive way to define etiology of loosening likely to be intraoperatively. This was discussed with patient today. Will review with Neurosurgery. 06/25/17 13:03 06/25/17 14:57 Subjective: Patient without specific complaints other than chronic back pain. No respiratory symptoms. Started on vancomycin overnight when blood cultures from 06/23/2017 showed GPCs in clusters in 1 of 2 sets. Objective: Vital Signs Temp Pulse Resp BP Pulse Ox 36.6 C 78 15 103/73 95 06/25/17 07:52 06/25/17 09:51 06/25/17 09:51 06/25/17 07:52 06/25/17 09:51 Microbiology 06/23/17 12:12 Blood Panel (PCR) - Final Blood Staph Coagulase Negative 06/20/17 12:00 Blood Panel (PCR) - Final Blood No Organism Detected Laboratory Results 06/24/17 05:00 06/24/17 05:00 06/24/17 06/25/17 06/26/17 05:59 05:59 05:59 Intake Total 350 500 Output Total 950 1150 Balance -600 -650 ESR 13 MM/HR (0-20) 06/20/17 12:10 C-Reactive Protein 243.1 mg/L (<10.0) H 06/20/17 12:10 Vancomycin # 1 Blood cultures 06/23/2017 1/2 sets coagulase-negative Staph - Physical Exam General Appearance: alert, no apparent distress EENT: No conjunctival petechiae Respiratory: lungs clear, No respiratory distress Cardiac/Chest: regular rate, rhythm, No systolic murmur Abdomen: non-tender, No distended Back: other (Incision intact without erythema or drainage, nontender to palpation) ICD10 Worksheet Patient Problems: Problems Problem Status Onset Other spondylosis with radiculopathy, lumbar region Acute Other spondylosis with radiculopathy, lumbar region Acute Pain Acute Pain Acute
[2017-06-25] MEDS: ACETAMINOPHEN 325 MG TAB PO PRN (15:09)
--- NOTE | 2017-06-25 16:11 | HOSPPROG ---
Hospitalist Progress Note Assessment/Plan: Gram positive cocci bacteremia: discussed w ID. two + blood cx felt to fit pattern of contaminant cannot eliminate possibiility of infected hardware as source of low grade bacteremia CAP PNA: possibly due to aspiration. Cont IV abx Acute hypoxic resp failure: resolved. Due to PNA resolved L5-S1 radiculopathy: NSGY plans for surgery once acute illness treated before placing hardware. Epidural injection today. Ambulating Mild hypernatremia: likely mild insensible losses with PNA. Encourage PO Sepsis: resolved. Fever: resolved. Cont IV abs Tachycardia: EKG personally reviewed, sinus tach. Resolved Leukocytosis: abx as above. Cultures pending Acute toxic/metabolic encephalopathy: due to infection and opioids. Resolved Diet: regular DVT ppx: Lovenox Disp: warrants inpt admission with PNA, bacteremia. Requires IV abx, pain management Subjective: case d/w dr sears Objective: Vital Signs Temp Pulse Resp BP Pulse Ox 36.6 C 78 15 103/73 95 06/25/17 07:52 06/25/17 09:51 06/25/17 09:51 06/25/17 07:52 06/25/17 09:51 Microbiology 06/20/17 12:00 Blood Panel (PCR) - Final Blood No Organism Detected 06/23/17 12:12 Blood Panel (PCR) - Final Blood Staph Coagulase Negative Laboratory Results 06/24/17 05:00 06/24/17 05:00 06/24/17 06/25/17 06/26/17 05:59 05:59 05:59 Intake Total 350 500 Output Total 950 1150 Balance -600 -650 PT 15.8 SEC (12.0-15.0) H 06/23/17 04:00 INR 1.26 (0.83-1.16) H 06/23/17 04:00 - Physical Exam Constitutional: no apparent distress, appears nourished Eyes: PERRL, anicteric sclera Ears, Nose, Mouth, Throat: moist mucous membranes, hearing normal Cardiovascular: regular rate and rhythym, no murmur, rub, or gallop Respiratory: no respiratory distress, no rales or rhonchi Gastrointestinal: normoactive bowel sounds, soft, non-tender abdomen Genitourinary: no bladder fullness, No james in urethra Skin: warm, normal color Musculoskeletal: full muscle strength, no muscle tenderness Neurologic: AAOx3 ICD10 Worksheet Patient Problems: Problems Problem Status Onset Other spondylosis with radiculopathy, lumbar region Acute Other spondylosis with radiculopathy, lumbar region Acute Pain Acute Pain Acute
[2017-06-25] MEDS: PATCH REMOVAL 1 EA PATCH TD SCH (22:15)
[2017-06-26] MEDS: methylPREDNISolone SOD SUCC 40 MG/ML VIAL IVP SCH ×5 (00:07→23:58)
[2017-06-26] MEDS: oxyCODONE IR 5 MG TAB PO PRN ×4 (04:17→20:45)
[2017-06-26] MEDS: METHOCARBAMOL 500 MG TAB PO SCH ×3 (05:56→22:41)
--- NOTE | 2017-06-26 07:53 | SOAPPROG ---
SOAP Progress Note Assessment/Plan: Assessment: 76 yo male with prior L2-[address] 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 Pain improved with Caudal SANA Pneumonia, G+ bacteremia, currently on IV abx per ID Plan: PT/OT as tolerated. PNA/G+bacteremiamanagement per Medicine team will proceed with extension of fusion next week, date/time unknown at this time. 06/26/17 07:52 Subjective: awake, alert, doing well. no complaints Objective: Vital Signs Temp Pulse Resp BP Pulse Ox 36.9 C 78 14 143/73 H 90 L 06/26/17 07:34 06/26/17 07:34 06/26/17 07:34 06/26/17 07:34 06/26/17 07:34 Microbiology 06/20/17 12:00 Blood Panel (PCR) - Final Blood No Organism Detected 06/20/17 12:10 Blood Culture - Final Blood 06/23/17 12:12 Blood Panel (PCR) - Final Blood Staph Coagulase Negative Laboratory Results 06/24/17 05:00 06/24/17 05:00 06/25/17 06/26/17 06/27/17 05:59 05:59 05:59 Intake Total 500 200 Output Total 1150 500 Balance -650 -300 PT 15.8 SEC (12.0-15.0) H 06/23/17 04:00 INR 1.26 (0.83-1.16) H 06/23/17 04:00 Neuro: MARTINEZ, sens +LT ambulatory ICD10 Worksheet Patient Problems: Problems Problem Status Onset Other spondylosis with radiculopathy, lumbar region Acute Other spondylosis with radiculopathy, lumbar region Acute Pain Acute Pain Acute
[2017-06-26] MEDS: ENOXAPARIN 40 MG/0.4 ML SYR SC SCH (08:24)
[2017-06-26] MEDS: guaiFENesin 200 MG TAB PO SCH ×2 (08:24→20:48)
[2017-06-26] MEDS: CETIRIZINE 10 MG TAB PO SCH (08:25)
[2017-06-26] MEDS: SENNOSIDES/DOCUSATE SODIUM TAB PO SCH ×2 (08:25→20:49)
[2017-06-26] MEDS: ALLOPURINOL 300 MG TAB PO SCH (08:25)
[2017-06-26] MEDS: GLUCOSAMINE/CHONDROITIN CAP PO SCH (08:25)
[2017-06-26] MEDS: LIDOCAINE 5% 1 EA PATCH TD SCH (08:25)
[2017-06-26] MEDS: MULTIVITAMINS 1 EACH TAB PO SCH (08:25)
[2017-06-26] MEDS: FLUTICASONE/SALMETER 250/50MCG DISKUS IH SCH ×2 (09:13→21:02)
[2017-06-26] MEDS: IPRATROPIUM/ALBUTEROL 3 ML DEYVIAL IH SCH ×3 (09:13→21:01)
[2017-06-26] MEDS: ACETAMINOPHEN 325 MG TAB PO PRN (14:24)
--- NOTE | 2017-06-26 16:40 | HOSPPROG ---
Hospitalist Progress Note Assessment/Plan: Gram positive cocci bacteremia: discussed w ID. two + blood cx felt to fit pattern of contaminant cannot eliminate possibiility of infected hardware as source of low grade bacteremia afebrile; follow off abx CAP PNA: possibly due to aspiration. Cont IV abx Acute hypoxic resp failure: resolved. Due to PNA resolved L5-S1 radiculopathy: NSGY plans for surgery mon 06/29 Mild hypernatremia: likely mild insensible losses with PNA. Encourage PO Sepsis: resolved. Fever: resolved. Cont IV abs Tachycardia: EKG personally reviewed, sinus tach. Resolved Leukocytosis: abx as above. Cultures pending Acute toxic/metabolic encephalopathy: due to infection and opioids. Resolved Diet: regular DVT ppx: Lovenox Disp: warrants inpt admission with PNA, bacteremia. Requires IV abx, pain management Subjective: case d/w fabian salazar, neurosurgery PA Objective: Vital Signs Temp Pulse Resp BP Pulse Ox 36.5 C 74 18 123/74 H 91 L 06/26/17 15:57 06/26/17 15:57 06/26/17 15:57 06/26/17 15:57 06/26/17 15:57 Microbiology 06/23/17 12:12 Blood Panel (PCR) - Final Blood Staph Coagulase Negative 06/20/17 12:00 Blood Culture - Final Blood Lactobacillus Species Blood Panel (PCR) - Final No Organism Detected 06/20/17 12:10 Blood Culture - Final Blood Laboratory Results 06/24/17 05:00 06/24/17 05:00 06/25/17 06/26/17 06/27/17 05:59 05:59 05:59 Intake Total 500 200 Output Total 1150 500 Balance -650 -300 PT 15.8 SEC (12.0-15.0) H 06/23/17 04:00 INR 1.26 (0.83-1.16) H 06/23/17 04:00 - Physical Exam Constitutional: no apparent distress, appears nourished Eyes: PERRL, anicteric sclera Ears, Nose, Mouth, Throat: moist mucous membranes, hearing normal Cardiovascular: regular rate and rhythym Respiratory: no respiratory distress, no rales or rhonchi Gastrointestinal: normoactive bowel sounds, soft, non-tender abdomen Genitourinary: no bladder fullness, No james in urethra Skin: warm, normal color Musculoskeletal: full muscle strength, no muscle tenderness Neurologic: AAOx3 ICD10 Worksheet Patient Problems: Problems Problem Status Onset Other spondylosis with radiculopathy, lumbar region Acute Other spondylosis with radiculopathy, lumbar region Acute Pain Acute Pain Acute
[2017-06-26] MEDS: PATCH REMOVAL 1 EA PATCH TD SCH (20:49)
[2017-06-26] MEDS: DIAZEPAM 10 MG/2 ML SYR IVP PRN (20:58)
[2017-06-27] MEDS: oxyCODONE IR 5 MG TAB PO PRN ×5 (03:18→21:02)
[2017-06-27] MEDS: methylPREDNISolone SOD SUCC 40 MG/ML VIAL IVP SCH ×2 (05:31→21:01)
[2017-06-27] MEDS: METHOCARBAMOL 500 MG TAB PO SCH ×3 (05:31→21:02)
[2017-06-27] MEDS: IPRATROPIUM/ALBUTEROL 3 ML DEYVIAL IH SCH ×3 (07:46→21:48)
[2017-06-27] MEDS: FLUTICASONE/SALMETER 250/50MCG DISKUS IH SCH ×2 (07:48→21:48)
--- NOTE | 2017-06-27 08:38 | HOSPPROG ---
Hospitalist Progress Note Assessment/Plan: Mr Gardner is a 76-year-old male with a history of multiple back surgeries. He was admitted on June 19 with increasing low back pain. Early in his hospitalization he developed hypoxemia and fever with concern for aspiration. He has been treated with ceftriaxone and azithromycin. There was concern that he had a bacteremia. Repeat blood culture show no growth. It is most likely that the blood cultures were contaminant. He has undergone imaging of the spine which shows a loose screw at L2. He is followed by Neurosurgery with a plan to extend the fusion once medically stable. He has undergone multiple injections about and his back due to pain. Today is my 1st encounter with the patient. Chart reviewed. * Pneumonia likely aspiration was treated with ceftriaxone and azithromycin * acute hypoxemic respiratory failure secondary to pneumonia resolved has been on steroids IV q 6 hours, will decrease to bid patient is on chronic prednisone of 10 mg daily * positive blood culture likely a contaminant * L5-S1 radiculopathy: NSGY plans for surgery 06/29 * Mild hypernatremia:resolved * Sepsis: resolved. * Fever: none further * Tachycardia: non further * Leukocytosis: due to the steroids most likely * Acute toxic/metabolic encephalopathy: resolved *Plan: surgery Thursday/ will need to be weaned off steroids prior to surgery/ this can impact his healing Subjective: Chavo is having ongoing back pain, but is well controlled with the pain medications. Objective: Vital Signs Temp Pulse Resp BP Pulse Ox 36.7 C 71 16 167/91 H 95 06/27/17 07:12 06/27/17 07:12 06/27/17 07:52 06/27/17 07:12 06/27/17 07:52 Microbiology 06/23/17 12:12 Blood Panel (PCR) - Final Blood Staph Coagulase Negative 06/20/17 12:00 Blood Culture - Final Blood Lactobacillus Species Blood Panel (PCR) - Final No Organism Detected Laboratory Results 06/24/17 05:00 06/24/17 05:00 06/26/17 06/27/17 06/28/17 05:59 05:59 05:59 Intake Total 200 350 Output Total 500 Balance -300 350 PT 15.8 SEC (12.0-15.0) H 06/23/17 04:00 INR 1.26 (0.83-1.16) H 06/23/17 04:00 - Physical Exam Constitutional: no apparent distress, appears nourished Eyes: PERRL Ears, Nose, Mouth, Throat: hearing normal Cardiovascular: regular rate and rhythym Respiratory: no respiratory distress Gastrointestinal: normoactive bowel sounds Skin: warm, normal color Musculoskeletal: muscular tenderness Neurologic: AAOx3 Psychiatric: interacting appropriately, not anxious ICD10 Worksheet Patient Problems: Problems Problem Status Onset Other spondylosis with radiculopathy, lumbar region Acute Other spondylosis with radiculopathy, lumbar region Acute Pain Acute Pain Acute
[2017-06-27] MEDS: MULTIVITAMINS 1 EACH TAB PO SCH (08:55)
[2017-06-27] MEDS: CETIRIZINE 10 MG TAB PO SCH (08:55)
[2017-06-27] MEDS: GLUCOSAMINE/CHONDROITIN CAP PO SCH (08:55)
[2017-06-27] MEDS: ALLOPURINOL 300 MG TAB PO SCH (08:55)
[2017-06-27] MEDS: ACETAMINOPHEN 325 MG TAB PO PRN ×3 (08:55→18:21)
[2017-06-27] MEDS: guaiFENesin 200 MG TAB PO SCH ×2 (08:55→21:02)
[2017-06-27] MEDS: ENOXAPARIN 40 MG/0.4 ML SYR SC SCH (08:56)
[2017-06-27] MEDS: LIDOCAINE 5% 1 EA PATCH TD SCH (08:56)
[2017-06-27] MEDS: SENNOSIDES/DOCUSATE SODIUM TAB PO SCH ×2 (09:22→21:03)
--- NOTE | 2017-06-27 12:06 | SOAPPROG ---
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 Plan: stable, will plan for lumbar surgery on Thursday PT/OT please call with neuro changes discussed with Dr Palomino 06/22/17 10:30 06/27/17 12:01 Subjective: continued back pain, no leg pain, legs feel weak from inactivity Objective: Vital Signs Temp Pulse Resp BP Pulse Ox 36.7 C 71 16 167/91 H 95 06/27/17 07:12 06/27/17 07:12 06/27/17 07:52 06/27/17 07:12 06/27/17 07:52 Microbiology 06/23/17 12:12 Blood Panel (PCR) - Final Blood Staph Coagulase Negative 06/20/17 12:00 Blood Culture - Final Blood Lactobacillus Species Blood Panel (PCR) - Final No Organism Detected Laboratory Results 06/24/17 05:00 06/24/17 05:00 06/26/17 06/27/17 06/28/17 05:59 05:59 05:59 Intake Total 200 350 Output Total 500 Balance -300 350 PT 15.8 SEC (12.0-15.0) H 06/23/17 04:00 INR 1.26 (0.83-1.16) H 06/23/17 04:00 AAOX4, +FC PERRL, EOMI, no facial droop 5/5 + light touch ICD10 Worksheet Patient Problems: Problems Problem Status Onset Other spondylosis with radiculopathy, lumbar region Acute Other spondylosis with radiculopathy, lumbar region Acute Pain Acute Pain Acute
[2017-06-27] MEDS ORDERED: methylPREDNISolone SOD SUCC 40 MG/ML VIAL IVP SCH (14:00)
[2017-06-27] MEDS: PATCH REMOVAL 1 EA PATCH TD SCH (21:09)
[2017-06-28] MEDS: oxyCODONE IR 5 MG TAB PO PRN ×5 (00:01→22:22)
[2017-06-28] MEDS: METHOCARBAMOL 500 MG TAB PO SCH ×3 (05:24→22:23)
[2017-06-28] MEDS: IPRATROPIUM/ALBUTEROL 3 ML DEYVIAL IH SCH ×3 (09:32→21:51)
[2017-06-28] MEDS: FLUTICASONE/SALMETER 250/50MCG DISKUS IH SCH ×2 (09:33→21:52)
[2017-06-28] MEDS: methylPREDNISolone SOD SUCC 40 MG/ML VIAL IVP SCH (10:04)
[2017-06-28] MEDS: LIDOCAINE 5% 1 EA PATCH TD SCH (10:07)
[2017-06-28] MEDS: guaiFENesin 200 MG TAB PO SCH ×2 (10:08→22:23)
[2017-06-28] MEDS: ALLOPURINOL 300 MG TAB PO SCH (10:08)
[2017-06-28] MEDS: GLUCOSAMINE/CHONDROITIN CAP PO SCH (10:08)
[2017-06-28] MEDS: CETIRIZINE 10 MG TAB PO SCH (10:08)
[2017-06-28] MEDS: SENNOSIDES/DOCUSATE SODIUM TAB PO SCH ×2 (10:08→22:22)
[2017-06-28] MEDS: ACETAMINOPHEN 325 MG TAB PO PRN ×3 (10:09→22:21)
[2017-06-28] MEDS: MULTIVITAMINS 1 EACH TAB PO SCH (10:09)
--- NOTE | 2017-06-28 10:11 | HOSPPROG ---
Hospitalist Progress Note Assessment/Plan: Mr Gardner is a 76-year-old male with a history of multiple back surgeries. He was admitted on June 19 with increasing low back pain. Early in his hospitalization he developed hypoxemia and fever with concern for aspiration. He has been treated with ceftriaxone and azithromycin. There was concern that he had a bacteremia. Repeat blood culture show no growth. It is most likely that the blood cultures were contaminant. He has undergone imaging of the spine which shows a loose screw at L2. He is followed by Neurosurgery with a plan to extend the fusion once medically stable. He has undergone multiple injections about and his back due to pain. * Pneumonia likely aspiration was treated with ceftriaxone and azithromycin resolved * acute hypoxemic respiratory failure secondary to pneumonia resolved weaning off of IV steroids/ will change to daily today patient is on chronic prednisone of 10 mg daily * positive blood culture likely a contaminant * L5-S1 radiculopathy: NSGY plans for surgery 06/29 * Mild hypernatremia:resolved * Sepsis: resolved. * Fever: none further * Tachycardia: non further * Leukocytosis: due to the steroids most likely * Acute toxic/metabolic encephalopathy: resolved *Plan: surgery Thursday/ will need to be weaned off steroids prior to surgery which is being done/ he is on chronic prednisone 10 mg daily which will need to be resumed Subjective: Chavo is feeling well/ last night he slept well for the first time. Objective: Vital Signs Temp Pulse Resp BP Pulse Ox 36.9 C 72 16 114/79 94 06/28/17 07:06 06/28/17 09:37 06/28/17 09:37 06/28/17 07:06 06/28/17 09:37 Microbiology 06/23/17 12:12 Blood Culture - Final Blood Staphylococcus Epidermidis Blood Panel (PCR) - Final Staph Coagulase Negative Laboratory Results 06/24/17 05:00 06/24/17 05:00 06/27/17 06/28/17 06/29/17 05:59 05:59 05:59 Intake Total 350 550 450 Output Total 550 Balance 350 0 450 PT 15.8 SEC (12.0-15.0) H 06/23/17 04:00 INR 1.26 (0.83-1.16) H 06/23/17 04:00 - Physical Exam Constitutional: no apparent distress, appears nourished, No not in pain (minimal ) Eyes: PERRL Ears, Nose, Mouth, Throat: hard of hearing Cardiovascular: regular rate and rhythym Respiratory: no respiratory distress Gastrointestinal: normoactive bowel sounds Skin: warm Musculoskeletal: generalized weakness Neurologic: AAOx3 Psychiatric: interacting appropriately, not anxious ICD10 Worksheet Patient Problems: Problems Problem Status Onset Other spondylosis with radiculopathy, lumbar region Acute Other spondylosis with radiculopathy, lumbar region Acute Pain Acute Pain Acute
[2017-06-28] MEDS: POLYETHYLENE GLYCOL 3350 17 GM PKT PO PRN (11:07)
[2017-06-28] MEDS ORDERED: HYDROmorphONE/DILAUDID 1 MG/ML SYR IVP PRN (12:03)
--- NOTE | 2017-06-28 12:21 | SOAPPROG ---
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 Objective: Vital Signs Temp Pulse Resp BP Pulse Ox 36.9 C 72 16 114/79 94 06/28/17 07:06 06/28/17 09:37 06/28/17 09:37 06/28/17 07:06 06/28/17 09:37 Microbiology 06/23/17 12:12 Blood Culture - Final Blood Staphylococcus Epidermidis Blood Panel (PCR) - Final Staph Coagulase Negative Laboratory Results 06/24/17 05:00 06/24/17 05:00 06/27/17 06/28/17 06/29/17 05:59 05:59 05:59 Intake Total 350 550 450 Output Total 550 Balance 350 0 450 PT 15.8 SEC (12.0-15.0) H 06/23/17 04:00 INR 1.26 (0.83-1.16) H 06/23/17 04:00 AAOx4, +FC PERRL, EOMI, no facial droop 5/5 + light touch ICD10 Worksheet Patient Problems: Problems Problem Status Onset Other spondylosis with radiculopathy, lumbar region Acute Other spondylosis with radiculopathy, lumbar region Acute Pain Acute Pain Acute
[2017-06-28] MEDS: PATCH REMOVAL 1 EA PATCH TD SCH (22:24)
[2017-06-28] MEDS: NS W/ 20 KCl/L 1,000 ML IV SCH (22:54)
[2017-06-29] MEDS: ACETAMINOPHEN 325 MG TAB PO PRN ×2 (06:06→11:41)
[2017-06-29] MEDS: METHOCARBAMOL 500 MG TAB PO SCH ×2 (06:07→22:42)
[2017-06-29] MEDS: oxyCODONE IR 5 MG TAB PO PRN ×3 (06:07→22:42)
[2017-06-29] MEDS: IPRATROPIUM/ALBUTEROL 3 ML DEYVIAL IH SCH ×3 (07:17→22:06)
[2017-06-29] MEDS: FLUTICASONE/SALMETER 250/50MCG DISKUS IH SCH ×3 (08:45→22:16)
--- NOTE | 2017-06-29 08:45 | HOSPPROG ---
Hospitalist Progress Note Assessment/Plan: #L5-S1 radiculopathy: NSGY plans for surgery today #Staph/lactobacillus: likely contaminant cultures #Aspiration PNA: completed 5-day abx #Acute hypoxic resp failure: resolved. Due to PNA #Mild hypernatremia: likely mild insensible losses with PNA. Encourage PO #Sepsis: resolved. #Fever: resolved. Cont IV abs #Tachycardia: EKG personally reviewed, sinus tach. Resolved #Leukocytosis: improving. No fever. Bld cultures likely contaminant, s/p abx for PNA #Acute toxic/metabolic encephalopathy: due to infection and opioids. Resolved #Diet: regular #DVT ppx: Lovenox Disp:cont inpt admission for back surgery, pain control Subjective: walking unit. Dry cough Objective: Vital Signs Temp Pulse Resp BP Pulse Ox 37.1 C 81 12 114/67 91 L 06/29/17 07:30 06/29/17 07:30 06/29/17 07:30 06/29/17 07:30 06/29/17 07:30 Microbiology 06/23/17 12:38 Blood Culture - Final Blood 06/23/17 12:12 Blood Culture - Final Blood Staphylococcus Epidermidis Blood Panel (PCR) - Final Staph Coagulase Negative Laboratory Results 06/24/17 05:00 06/24/17 05:00 06/28/17 06/29/17 06/30/17 05:59 05:59 05:59 Intake Total 550 1794 Output Total 550 1350 Balance 0 444 PT 15.8 SEC (12.0-15.0) H 06/23/17 04:00 INR 1.26 (0.83-1.16) H 06/23/17 04:00 - Physical Exam Constitutional: no apparent distress Eyes: PERRL Ears, Nose, Mouth, Throat: moist mucous membranes Cardiovascular: regular rate and rhythym Respiratory: no respiratory distress Neurologic: AAOx3, CN II-XII Intact Psychiatric: interacting appropriately ICD10 Worksheet Patient Problems: Problems Problem Status Onset Other spondylosis with radiculopathy, lumbar region Acute Other spondylosis with radiculopathy, lumbar region Acute Pain Acute Pain Acute
--- NOTE | 2017-06-29 08:45 | PDHPUP ---
History & Physical Update H&P update statement: This history and physical update is based on an assessment of the patient which was completed after admission or registration (within 24 hours), but prior to the surgery/procedure. H&P update: H&P reviewed & patient examined H&P changes: The patieht has been cleared by ID and medicine for surgery today. Risks, benefit and alternatives to a T12-S2 PSF with L5/S1 TLIF with possible T12/L1 and L1/2 TLIF
[2017-06-29] MEDS: guaiFENesin 200 MG TAB PO SCH ×2 (08:57→22:43)
[2017-06-29] MEDS: ALLOPURINOL 300 MG TAB PO SCH (08:57)
[2017-06-29] MEDS: CETIRIZINE 10 MG TAB PO SCH (08:57)
[2017-06-29] MEDS: MULTIVITAMINS 1 EACH TAB PO SCH (08:59)
[2017-06-29] MEDS: GLUCOSAMINE/CHONDROITIN CAP PO SCH (08:59)
[2017-06-29] MEDS: SENNOSIDES/DOCUSATE SODIUM TAB PO SCH (08:59)
[2017-06-29] MEDS: methylPREDNISolone SOD SUCC 40 MG/ML VIAL IVP SCH (09:00)
[2017-06-29] MEDS: LIDOCAINE 5% 1 EA PATCH TD SCH (09:06)
[2017-06-29] MEDS ORDERED: CHLORHEXIDINE GLUC HIBICLENS 118 ML BTL TP ONE (10:44)
[2017-06-29] MEDS ORDERED: BUPIVACAINE/EPI 0.25% 30 ML SDV ONE (10:45)
[2017-06-29] MEDS ORDERED: THROMBIN (BOVINE) 5,000 UNIT VIAL TP ONE (10:45)
[2017-06-29] MEDS ORDERED: BACITRACIN 50,000 UNITS/10 ML SYR IRR ONE (10:45)
[2017-06-29] MEDS ORDERED: ceFAZolin 2 GM/DEXTROSE 100 ML IV ONE (12:00)
[2017-06-29] MEDS ORDERED: REMIFENTANIL HCL 1 MG VIAL ONE ×3 (12:30→12:31)
[2017-06-29] MEDS ORDERED: PROPOFOL 200 MG/20 ML VIAL ONE (12:31)
[2017-06-29] MEDS ORDERED: PROPOFOL/EMULSION 500 MG/50 ML BOTTLE IV ONE ×3 (12:31→18:04)
[2017-06-29] MEDS ORDERED: fentaNYL 100 MCG/2 ML INJ ONE ×4 (12:31→20:25)
[2017-06-29] MEDS ORDERED: ONDANSETRON 4 MG/2 ML VIAL ONE (12:40)
[2017-06-29] MEDS ORDERED: LIDOCAINE 2% 5 ML SDV ONE (12:40)
[2017-06-29] MEDS ORDERED: ROCURONIUM 50 MG/5 ML VIAL ONE ×2 (12:40→14:38)
[2017-06-29] MEDS ORDERED: DEXAMETHASONE 4 MG/ML VIAL ONE (12:40)
--- NOTE | 2017-06-29 12:56 | PDANEPAE ---
ANE History of Present Illness Patient presents for back surgery. ANE Past Medical History - Pulmonary History Hx COPD: Yes Hx Asthma/Reactive Airway Disease: Yes Hx Oxygen in Use at Home: No Hx Sleep Apnea: No - Endocrine History Hx Diabetes: No - Chronic Pain History Chronic Pain: Yes - Surgical History Prior Surgeries: Numerous back procedures ANE Review of Systems - Exercise capacity Exercise capacity: limited by disability ANE Patient History - Allergies Allergies/Adverse Reactions: Sulfa (Sulfonamide Antibiotics) Allergy (Mild, Verified 06/05/17 11:37) Congestion - Home Medications Home medications: home medication list seen and reviewed Home Medications: Allopurinol [Allopurinol 300 MG (RX)] 300 mg PO DAILY 06/05/17 [Last Taken 06/18] Cetirizine [ZyrTEC 10 mg (*)] 10 mg PO DAILY 06/05/17 [Last Taken 06/18/17] Denosumab [Prolia] 60 mg SQ Q182D 06/05/17 [Last Taken 03/23/17] Fluticasone/Salmeter 250/50Mcg [Advair 250/50 (*)] 1 puffs IH BID 06/05/17 [ Last Taken 06/18/17] Glucosamine/Chondroitin [Glucosamine/Chondroitin (*)] 1 each PO DAILY 06/05/17 [ Last Taken 06/18/17] Herbals/Supplements -Info Only 1 ea PO DAILY 06/05/17 [Last Taken 06/18/17] Methocarbamol [Robaxin 750 mg (*)] 750 mg PO Q6H PRN 06/05/17 [Last Taken ] Multivitamins [Multivitamin (*)] 1 each PO DAILY 06/05/17 [Last Taken 06/18/17] Ranitidine HCl [Zantac] 150 mg PO BID PRN 06/05/17 [Last Taken 06/18/17] Acetaminophen [Tylenol 325mg (*)] 650 mg PO DAILY PRN 06/06/17 [Last Taken 06/18] Ipratropium/Albuterol [Duoneb (*)] 3 ml IH QID PRN 06/06/17 [Last Taken 06/18/17 ] Propylene Glycol/Peg 400/Pf [Systane 0.3-0.4% Eye Drops] 1 each OP DAILY PRN [Last Taken 06/18/17] predniSONE [Prednisone] 10 mg PO DAILY 06/06/17 [Last Taken 06/18/17] Diazepam [Valium 5 MG (*)] 5 mg PO Q6H PRN 06/19/17 [Last Taken 06/18/17] guaiFENesin [Guaifenesin] 400 mg PO BID 06/19/17 [Last Taken 06/18/17] oxyCODONE IR [Oxycodone Ir (*)] 5 - 10 mg PO Q4-6PRN PRN 06/19/17 [Last Taken ] - NPO status NPO Status: no food or drink >8 hours - Anes Hx Anes Hx: no prior problems - Smoking Hx Smoking Status: Former smoker - Alcohol Use Alcohol Use: Occasionally ANE Labs/Vital Signs - Labs Result Diagrams: 06/24/17 05:00 06/24/17 05:00 - Vital Signs Vital Signs: reviewed preoperatively; see RN documention for details Blood Pressure: 107/63 Heart Rate: 83 Respiratory Rate: 14 O2 Sat (%): 88 Height: 180.34 cm Weight: 78.925 kg ANE Physical Exam - Airway Neck exam: decreased ROM Mallampati Score: Class 2 Mouth exam: small mouth opening - Pulmonary Pulmonary: no respiratory distress - Cardiovascular Cardiovascular: regular rate and rhythym - ASA Status ASA Status: III ANE Anesthesia Plan Anesthesia Plan: general endotracheal anesthesia (Standard monitors, + a-line, 2nd IV. RBA discussed pt agrees to proceed. )
[2017-06-29] MEDS ORDERED: AMINOCAPROIC ACID 5 GM/20 ML VIAL ONE (12:58)
[2017-06-29] MEDS ORDERED: ALBUTEROL HFA ANES ONLY 200 PUFFS/8.5 GM MDI IH ONE (13:13)
[2017-06-29] MEDS ORDERED: LR 1,000 ML IV ONE (13:24)
[2017-06-29] MEDS ORDERED: ALBUMIN 5% 250 ML BOTTLE IV ONE (13:30)
[2017-06-29] MEDS ORDERED: CITRATE DEXTROSE SOLN 500 ML BAG ONE (13:34)
[2017-06-29] MEDS ORDERED: PHENYLEPHRINE 10 MG/ML SDV ONE (14:39)
[2017-06-29] MEDS ORDERED: INSULIN REGULAR HUMAN 100 UNIT/ML ONE (14:56)
[2017-06-29] MEDS ORDERED: SURGIFLO MATRIX KIT WITH THROMBIN TP ONE (15:17)
[2017-06-29] MEDS ORDERED: CEFAZOLIN 1 GM/DEXTROSE/50 ML BAG IV ONE (16:55)
[2017-06-29] MEDS ORDERED: LR 500 ML IV PRN ×2 (17:49→19:07)
[2017-06-29] MEDS ORDERED: HYDROmorphONE/DILAUDID 1 MG/ML SYR IVP PRN (17:49)
[2017-06-29] MEDS ORDERED: ONDANSETRON 4 MG/2 ML VIAL IVP PRN ×3 (17:49→20:11)
[2017-06-29] MEDS ORDERED: OXYCODONE/APAP 5/325 TAB PO PRN ×2 (17:49→19:07)
[2017-06-29] MEDS ORDERED: NALOXONE HCL 0.4 MG/ML INJ IVP PRN ×2 (17:49→19:07)
[2017-06-29] MEDS ORDERED: HYDROCODONE/APAP 5/325 TAB PO PRN ×2 (17:49→19:07)
[2017-06-29] MEDS ORDERED: morphINE PF 5 MG/10 ML INJ IT ONE (18:00)
[2017-06-29] MEDS ORDERED: morphINE PF 5 MG/10 ML INJ ONE (18:02)
[2017-06-29] MEDS ORDERED: fentaNYL 100 MCG/2 ML INJ IVP PRN (19:07)
[2017-06-29] MEDS ORDERED: SUGAMMADEX SODIUM 200 MG/2 ML VIAL IVP ONE (19:12)
--- NOTE | 2017-06-29 20:09 | POSTOPPROG ---
Post Op Note Date of Operation: 06/29/17 Surgeon: Niko Palomino Slab Tripper: Keiry Coronado PA-C Anesthesia: GET(General Endotracheal) Pre-op Diagnosis: Foraminal Stenosis, Adjacent segment disease Post-op Diagnosis: Same Procedure: T12-S2 instrumented fusion, L5/S1 TLIF, Hardware exploration/revision Findings: See operative note Inf/Abcess present in the surg proc area at time of surgery?: No Depth: Organ Space EBL: 750 Complications: None Drains: Kp Thomas (GRACIE X 2) SOAP Progress Note Assessment/Plan: S: Patient in PACU. Stable with expected back pain. O: NAD, VSS PERRL, EOMI CN II-XII grossly intact no droop MARTINEZ X 4 BLE 5/5 = Sensation intact to lt touch Incision c/d/i GRACIE X 2- to full suction A: 76 yo male sp T12-S2 posterior instrumented fusion, L5/S1 TLIF, hardware exploration and revision. P: -Admit back to Floor -Intrathecal Narcotics given- .2mg Duramorph -Optimize pain management- Duramorph given intraop, -X-rays tomorrow if able to stand- Full standing x-rays Scoliosis series -Brace to be ordered by RN. To be worn when up and out of bed. Can get up prior to brace arriving -GRACIE X 2 to full suction -Call with any changes in neuro or motor exam 06/29/17 20:00 Objective: Vital Signs Temp Pulse Resp BP Pulse Ox 37.1 C 83 14 107/63 88 L 06/29/17 13:03 06/29/17 13:03 06/29/17 13:03 06/29/17 13:03 06/29/17 13:03 Microbiology 06/23/17 12:38 Blood Culture - Final Blood Laboratory Results 06/24/17 05:00 06/24/17 05:00 06/28/17 06/29/17 06/30/17 05:59 05:59 05:59 Intake Total 550 1794 Output Total 550 1350 Balance 0 444 PT 15.8 SEC (12.0-15.0) H 06/23/17 04:00 INR 1.26 (0.83-1.16) H 06/23/17 04:00
[2017-06-29] MEDS ORDERED: ONDANSETRON DISINTEGRATING 4 MG TAB PO PRN (20:11)
[2017-06-29] MEDS ORDERED: diphenhydrAMINE 25 MG CAP PO PRN (20:11)
--- NOTE | 2017-06-29 20:12 | POSTANESTH ---
Post Anesthetic Evaluation Cardiovascular Status: Normal, Stable Respiratory Status: Normal, Stable Level of Consciousness/Mental Status: Can Participate in Eval Pain Control: Inadeq, Add Tx Required Nausea/Vomiting Control: Adequate, Prn Tx Ordered Complications Possibly Related to Anesthesia: None Noted (some pain, otherwise unremarkable recovery.)
[2017-06-29] MEDS: fentaNYL 100 MCG/2 ML INJ IVP PRN ×4 (20:14→21:19)
[2017-06-29] MEDS ORDERED: DIAZEPAM 10 MG/2 ML SYR ONE (20:25)
[2017-06-29] MEDS ORDERED: HYDROmorphONE/DILAUDID 1 MG/ML SYR ONE (20:25)
[2017-06-29] MEDS: DIAZEPAM 10 MG/2 ML SYR IVP PRN (20:28)
[2017-06-29] MEDS: HYDROmorphONE/DILAUDID 1 MG/ML SYR IVP PRN ×2 (20:37→21:11)
--- NOTE | 2017-06-29 20:39 | GHP ---
[f rep st] PREOP HISTORY AND PHYSICAL DATE OF ADMISSION: 06/19/2017 OFFICE ASSOCIATE: Keiry Coronado PA-C PROCEDURES PERFORMED: 1. Exploration of lumbar fusion. 2. Removal of hardware at L2 on the left and removal of bilateral posterolateral rods. 3. T12-S2/ilium posterolateral fusion. 4. Placement of bilateral pedicle screws at T12, L1, L5, S1. 5. Placement of sacral alar/ileal screws at S2 bilaterally. 6. Transforaminal lumbar interbody fusion L5-S1. 7. Placement of interbody graft at L5-S1. 8. Use of the operative microscope. 9. Vertebral screw augmentation/vertebroplasty at T12 and L1 bilaterally. 10. O-arm stereotactic navigation for screw placement. 11. Intraoperative neurophysiologic monitoring, including somatosensory-evoked potentials, motor-evoked potentials, and EMG. 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 BRIEF HISTORY: The patient is a 76-year-old man with a long history of spinal disease and osteoporosis. He previously underwent L3-L5 instrumented fusion. My partner Dr. Ellis had recently done a revision in February of 2017, where the old hardware was removed, and a TLIF was done at L2-3, and placement of posterior fixation was done at L2-L4, with a good fusion across the L4-5 interspace. He presents now with severe back pain and right leg pain in the L5 and S1 distributions, the large disk herniation at L5-S1, lateral recess and foraminal stenosis at that level. He also has signs of loosening of the screws with pseudoarthrosis at L2-3, and adjacent segment disease at L1-2. We discussed the options at length and the patient was admitted for inpatient pain control, and ultimately decided that we would need to take his fusion lower to the sacrum and more cephalad to the thoracic spine. Complicating matters, he does have severe osteoporosis, and has had augmentation of his screws in previous surgeries. FINDINGS: A successful lumbar fusion. DESCRIPTION OF PROCEDURE: After informed consent was obtained from the patient , the patient was brought to the operating room, and a formal time-out was performed, identifying the patient by name, medical record number, and date of . Preoperative antibiotics were given, the endotracheal tube was placed, and all appropriate lines were placed by Anesthesia. General endotracheal anesthesia was smoothly induced. The Amicar infusion was started for minimization of the blood loss and all leads for intraoperative neurophysiologic monitoring, including somatosensory-evoked potentials, motor- evoked potentials, and EMG, were placed. Next, the patient was turned into the prone position. All appropriate pressure points were padded and checked. The previous lumbar incision was visualized and marked, and midline extensions to this incision were marked both caudally and cephalad. The lumbar region was then prepped and draped in the normal sterile fashion. The skin incision was made using a 10 blade and the subcutaneous tissues were dissected using monopolar electrocautery. The paraspinous muscles and scar tissue were taken down from the spinous processes in the midline and taken out laterally to identify the hardware from L2-L4. We continued this dissection along L5 and the previous pedicle screw holes were visualized, and we carried this down along the L5-S1 joint. The sacrum was then skeletonized of its tissues, and the S1 and S2 foramina were identified. We then carried this more superiorly, identifying the facet joints at T12-L1 and L1-L2, and dissected out laterally to identify the transverse processes of T12, L1, and L2. Once all this exposure was obtained, the cap screws were removed and the old posterolateral rods were removed. On the left side at L2, the screw was very loose and was able to be pulled out with minimal effort. At this point, 2 separate O-arm spins were done, visualizing the upper portion of the fusion and the lower portion of the fusion, since we could not see it all in 1 spin. Starting on the right side at L1, the junction between the transverse process and the pars was identified, and this was checked with the stereotaxis from the O-arm spin, identifying the L1 pedicle entry point. The bone was then decorticated using the high-speed drill and tapped with a 4.5-5.5 tap and 6.5 x 50 mm Medtronic cannulated screw for augmentation was placed. The same procedure was performed at T12 and 6.5 x 50 mm screw was again placed at that level. We then went to the left side and 6.5 x 55 mm screw was placed at L1 and a 6.5 x 50 mm screw was placed at T12. We then visualized the trajectory through the pedicle on the left side at L2, and this pedicle was quite large. Therefore, an 8.5 x 55 mm screw was replaced into the old screw hole at that level. Through the cannulated screws at T12 and L1, 1.2cc of methylmethacrolate bone cement was injected under direct fluroscopic vision for screw augmentation/vertebroplasty given the patient's poor bone quality. There was no sign of cement extravasation. We then turned our attention down toward the sacrum, and starting on the left side, the entry point to the S1 pedicle was visualized. However, we were unable to get a very good medial trajectory, so the skin was undermined over the muscle and a stab incision through the muscle was made just medial to the iliac crest. This allowed us to place the tap and screw at a more medial angle, which was more favorable for good biomechanical force. At this point, the tap was used to tap a pedicle screw on the left side at S1 and a 6.5 x 55 mm screw was placed there. We then reached across toward the right side, and the area between the S1 and S2 foramina was visualized. This was checked with the stereotaxis for the correct angle, and the bone was then decorticated. A 6.5 mm tap was then used to tap under direct vision, using navigation, through the sacroiliac joint into the ilium above the sciatic notch. This was measured at about 90 mm, and so a 7.5 x 90 mm screw was placed at that level through the sacral ala into the ilium. We then went to the right side, and at S1 the same procedure was used to place a 6.5 x 55 mm screw, again through the muscles to achieve a more medial trajectory. The same procedure was again performed at S2 on the left side, again placing a 7.5 x 90 mm screw through the sacral ala into the ilium. At this point, the area where the previous hardware had been at L5 was visualized, and using navigation, a 7.5 x 55 mm screw was placed into the previously known trajectory at L5, and on the right a 7.5 x 50 mm screw was placed. At this point, all the screws were stimulated and all stimulated below threshold, suggesting that they were in good placement. O-arm spins were obtained again of the newly placed hardware, which showed that they were all well within the bony confines and not violating the foramina. At this point, the disk space distractor was placed across the L5 and S1 screws on the right side and the pars and inferior articular process was drilled using the high-speed drill. We drilled the lamina, identifying the dura and the traversing S1 nerve root, and we were able to drill out the entire foramen, identifying the disk space. There was a free disc fragment under the S1 nerve which was likely causing a lot of the patient's pain, and this was removed. The disk space was then entered and this disk space was completely collapsed without very much space for a wide diskectomy, but all the disk that we could palpate was removed. The end endplates were carefully decorticated using rasps and curettes, and once the disk space was completely prepared, it was sized for a 6 x 26 mm Medtronic Capstone cage. This was packed with BMP and some autograft, and was then placed under navigation into the disk space. This was checked to be sure there was no compromise of the nerve root, and everything was nicely free. At this point, the wound was copiously irrigated using bacitracin irrigation. The transverse processes of T12, L1, and L2 were completely decorticated, and some BMP and allograft cadaver bone was laid out over the transverse processes for a posterolateral fusion. On the right side, from L2-L4, the facet joints were completely decorticated and again BMP and Progenix Plus allograft demineralized bone matrix and bone chips was laid over this area, and was mixed with autograft. On the left side, from L5-S1, the facet joint and sacral ala were completely decorticated, and BMP and again Progenix Plus allograft demineralized bone matrix and cadaver bone chips was placed to form the L5-S1 fusion. This allowed for a fusion from T12-S2. We then fashioned 5.5 mm Medtronic Solera titanium rods which were placed into the screw heads and secured with locking caps which were finally torqued. Once all the hardware was in position, and was finally tightened, the wound was copiously irrigated using bacitracin irrigation. Next, 10-Tajik PVC drains were placed in the lateral gutters and tunneled out sterilely. 0.2 mg of Duramorph was injected intrathecally for postoperative pain control. The fascia was then closed in the midline using interrupted 0 Vicryl. 40 cc of 0.25 % Marcaine with epinephrine was infiltrated into the subcutaneous tissue for postoperative analgesia. The deep dermis was closed using interrupted 2-0 Vicryl, and the skin was closed using a running 3-0 nylon. Final x-rays of the hardware were then obtained. The patient was returned back into the supine position, extubated and awakened in the operating room. All nerve physiologic monitoring was completely stable throughout the case with no changes. The blood loss was 700 cc. Fluids and urine output were per the Anesthesia record. There were no operative complications. I was scrubbed and present for the entire procedure. All sponge and needle counts were correct at the end of the case. Drains were subfascial JPs. There were no specimens. /[id number]/MODL MTDD
[2017-06-29] MEDS: GABAPENTIN 300 MG CAP PO SCH (22:41)
[2017-06-29] MEDS: ACETAMINOPHEN 500 MG TAB PO SCH (22:42)
[2017-06-29] MEDS: FAMOTIDINE 20 MG TAB PO SCH (22:43)
[2017-06-29] MEDS: ceFAZolin 2 GM/DEXTROSE 100 ML IV SCH (22:45)
[2017-06-29] MEDS: NS W/ 20 KCl/L 1,000 ML IV SCH (22:48)
[2017-06-30] MEDS: SENNOSIDES/DOCUSATE SODIUM TAB PO SCH ×3 (00:41→21:50)
[2017-06-30] MEDS: PATCH REMOVAL 1 EA PATCH TD SCH ×2 (00:55→21:59)
[2017-06-30] MEDS: METHOCARBAMOL 500 MG TAB PO SCH ×2 (00:57→05:48)
[2017-06-30] MEDS ORDERED: NS BOLUS 500 ML (Wide open) IV ONE (01:30)
[2017-06-30] MEDS ORDERED: NS BOLUS 500 ML (Wide open) IV PRN (02:00)
[2017-06-30] MEDS: GABAPENTIN 300 MG CAP PO SCH ×3 (05:48→21:51)
[2017-06-30] MEDS: ACETAMINOPHEN 500 MG TAB PO SCH ×3 (05:48→21:50)
[2017-06-30] MEDS: ceFAZolin 2 GM/DEXTROSE 100 ML IV SCH (05:49)
[2017-06-30] MEDS: oxyCODONE IR 5 MG TAB PO PRN ×3 (05:49→22:09)
[2017-06-30 06:06] LABS: HEMATOCRIT 31.1 % (40.0-51.0); HEMOGLOBIN 10.1 g/dL (13.7-17.5); MEAN CELL HEMOGLOBIN 29.5 pg (27.9-34.1); MEAN CELL HEMOGLOBIN CONCENTR. 32.5 g/dL (32.4-36.7); MEAN CELL VOLUME 90.9 fL (81.5-99.8); RED BLOOD CELL COUNT 3.42 10^6/uL (4.40-6.38); RED CELL DISTRIBUTION WIDTH 15.3 % (11.5-15.2)
[2017-06-30 06:20] LABS: ANION GAP 6 mEq/L (8-16); CALCIUM 7.6 mg/dL (8.5-10.4); CARBON DIOXIDE 26 mEq/l (22-31); CHLORIDE 108 mEq/L (97-110); CREATININE 0.7 mg/dL (0.7-1.3); GLOMERULAR FILTRATION RATE > 60; GLUCOSE 85 mg/dL (70-100); POTASSIUM 3.9 mEq/L (3.5-5.2); SODIUM 140 mEq/L (134-144)
--- NOTE | 2017-06-30 08:18 | NEUSURGPN ---
Assessment/Plan: Assessment: A: 76 yo male sp T12-S2 posterior instrumented fusion, L5/S1 TLIF, hardware exploration and revision POD1 P: -Optimize pain management- Duramorph given intraop, -X-rays once brace arrives and if able to stand- Full standing x-rays Scoliosis series -Brace to be ordered by RN. To be worn when up and out of bed. Can get up prior to brace arriving. SHoudl ahve brace prior to walkign in [facility] working with PT -Continue GRACIE X 2 to full suction -DVT prophs: TEDs, SCDs, Lovenox okay POD2 -Call with any changes in neuro or motor exam -Discussed with Dr. vogel Subjective: Pain currently well managed. Denies any newnumbness, tingling pain or weakness. Objective: NAD A&Ox3 MAEx4 5/5 and equal in BUE and BLE. Dressing c/d/i. GRACIE drain sanguinous Catheter Insertion Date: 06/20/17 - Physician Discussed Patient with Dr.: Vogel Neurosurgery Physical Exam - Vitals, I&O, Labs I and O 06/29/17 06/30/17 07/01/17 05:59 05:59 05:59 Intake Total 1794 5760 862 Output Total 1350 4240 Balance 444 1520 862 Weight 78.925 kg Intake: Oral (ml) 1250 360 IV Intake (ml) 5000 IV Infused (ml) 544 400 862 Albumin 5% 500 ml IV .STK 250 -MED ONE Rx#:[id number] NS W/ 20 KCl/L 1,000 ml @ 544 162 75 mls/hr IV CONT SHARRI Rx #:[id number] Ns 500 ml @ Wide Open IV 500 ONCE ONE Rx#:[id number] ceFAZolin 1 GM/DEXTROSE 1 50 gm IV .STK-MED ONE Rx#: [id number] ceFAZolin 2 GM/DEXTROSE 100 200 100 ml @ 200 mls/hr IV ONCALL ONE Rx#:[id number] Output: Urine (ml) 1350 3350 Toilet 900 650 Urinal 450 2700 Estimated Blood Loss (ml) 700 GRACIE Drain Output (ml) 190 Left Back Kp Thomas 120 Right Back Kp Thomas 70 Other: Intake Quantity Yes Sufficient Number of Voids Toilet 1 Vital Signs Temp Pulse Resp BP Pulse Ox 37.2 C 71 16 90/53 L 93 06/30/17 08:00 06/30/17 08:00 06/30/17 08:00 06/30/17 08:00 06/30/17 08:00 Laboratory Results 06/30/17 05:55 06/30/17 05:55 ICD10 Worksheet Patient Problems: Problems Problem Status Onset Other spondylosis with radiculopathy, lumbar region Acute Other spondylosis with radiculopathy, lumbar region Acute Pain Acute Pain Acute
[2017-06-30] MEDS: IPRATROPIUM/ALBUTEROL 3 ML DEYVIAL IH SCH ×3 (08:49→21:11)
[2017-06-30] MEDS: FLUTICASONE/SALMETER 250/50MCG DISKUS IH SCH ×2 (08:49→21:13)
[2017-06-30] MEDS ORDERED: morphINE SR 15 MG TAB PO SCH (09:00)
--- NOTE | 2017-06-30 09:08 | HOSPPROG ---
Hospitalist Progress Note Assessment/Plan: #L5-S1 radiculopathy: POD #1 L5/S1 TLIF #Mild toxic encephalopathy: decrease Robaxin dose, now PRN. Stop MS Contin due to oversedation. Concern given recent aspiration with somnolence #Staph/lactobacillus: likely contaminant cultures #Aspiration PNA: completed 5-day abx #Acute hypoxic resp failure: resolved. Due to PNA #Mild hypernatremia: likely mild insensible losses with PNA. Encourage PO #Sepsis: resolved. #Fever: resolved. Cont IV abs #Tachycardia: EKG personally reviewed, sinus tach. Resolved #Leukocytosis: improving. No fever. Bld cultures likely contaminant, s/p abx for PNA #Acute toxic/metabolic encephalopathy: due to infection and opioids. Resolved #Diet: regular #DVT ppx: Lovenox Disp:cont inpt admission for back surgery, pain control Subjective: "groggy" Objective: Vital Signs Temp Pulse Resp BP Pulse Ox 37.2 C 75 14 90/53 L 96 06/30/17 08:00 06/30/17 08:40 06/30/17 08:40 06/30/17 08:00 06/30/17 08:40 Laboratory Results 06/30/17 05:55 06/30/17 05:55 06/29/17 06/30/17 07/01/17 05:59 05:59 05:59 Intake Total 1794 5760 862 Output Total 1350 4240 Balance 444 1520 862 PT 15.8 SEC (12.0-15.0) H 06/23/17 04:00 INR 1.26 (0.83-1.16) H 06/23/17 04:00 - Physical Exam Constitutional: no apparent distress, other (somnolent, slurry speech) Eyes: PERRL Ears, Nose, Mouth, Throat: moist mucous membranes Cardiovascular: regular rate and rhythym, no murmur, rub, or gallop Respiratory: no respiratory distress, no rales or rhonchi Gastrointestinal: normoactive bowel sounds, soft, non-tender abdomen Genitourinary: no bladder fullness Skin: warm Musculoskeletal: other (back brace in place) Neurologic: AAOx3 Psychiatric: encephalopathic (drowsy, cannot stay on point when questioned) ICD10 Worksheet Patient Problems: Problems Problem Status Onset Other spondylosis with radiculopathy, lumbar region Acute Other spondylosis with radiculopathy, lumbar region Acute Pain Acute Pain Acute
[2017-06-30] MEDS: guaiFENesin 200 MG TAB PO SCH ×2 (09:24→21:50)
[2017-06-30] MEDS: MULTIVITAMINS 1 EACH TAB PO SCH (09:24)
[2017-06-30] MEDS: GLUCOSAMINE/CHONDROITIN CAP PO SCH (09:25)
[2017-06-30] MEDS: ALLOPURINOL 300 MG TAB PO SCH (09:25)
[2017-06-30] MEDS: FAMOTIDINE 20 MG TAB PO SCH ×2 (09:25→21:51)
[2017-06-30] MEDS: CETIRIZINE 10 MG TAB PO SCH (09:25)
[2017-06-30] MEDS: LIDOCAINE 5% 1 EA PATCH TD SCH (09:25)
[2017-06-30] MEDS: methylPREDNISolone SOD SUCC 40 MG/ML VIAL IVP SCH (09:26)
[2017-06-30] MEDS: METHOCARBAMOL 750 MG TAB PO PRN (17:26)
[2017-07-01] MEDS: oxyCODONE IR 5 MG TAB PO PRN (03:57)
[2017-07-01] MEDS: ALTEPLASE 2 MG VIAL IVP PRN (03:57)
[2017-07-01] MEDS: GABAPENTIN 300 MG CAP PO SCH ×3 (05:47→21:35)
[2017-07-01] MEDS: ACETAMINOPHEN 500 MG TAB PO SCH (05:47)
[2017-07-01] MEDS ORDERED: ACETAMINOPHEN 500 MG TAB PO PRN (08:35)
[2017-07-01] MEDS: ENOXAPARIN 40 MG/0.4 ML SYR SC SCH (08:42)
[2017-07-01] MEDS: methylPREDNISolone SOD SUCC 40 MG/ML VIAL IVP SCH (08:43)
[2017-07-01] MEDS: MULTIVITAMINS 1 EACH TAB PO SCH (08:43)
[2017-07-01] MEDS: ALLOPURINOL 300 MG TAB PO SCH (08:43)
[2017-07-01] MEDS: FAMOTIDINE 20 MG TAB PO SCH ×2 (08:43→21:35)
[2017-07-01] MEDS: LIDOCAINE 5% 1 EA PATCH TD SCH (08:43)
[2017-07-01] MEDS: guaiFENesin 200 MG TAB PO SCH ×2 (08:44→21:36)
[2017-07-01] MEDS: CETIRIZINE 10 MG TAB PO SCH (08:44)
[2017-07-01] MEDS: SENNOSIDES/DOCUSATE SODIUM TAB PO SCH ×2 (08:44→21:37)
[2017-07-01] MEDS: GLUCOSAMINE/CHONDROITIN CAP PO SCH (08:44)
[2017-07-01] MEDS: METHOCARBAMOL 750 MG TAB PO PRN ×2 (08:45→18:15)
--- NOTE | 2017-07-01 08:50 | NEUSURGPN ---
Assessment/Plan: A: 76 yo male sp T12-S2 posterior instrumented fusion, L5/S1 TLIF, hardware exploration and revision POD#2 P: -Optimize pain management- Duramorph given intraop. Pt states he thinks oxycodone is causing confusion and requests change to [place]. -X-rays once brace arrives and if able to stand- Full standing x-rays Scoliosis series -Brace to be ordered by RN. To be worn when up and out of bed. Can get up prior to brace arriving. Should have brace prior to walking in halls and working with PT -Continue GRACIE X 2 to full suction - likely DC tomorrow -Dressing changes -DVT prophs: TEDs, SCDs, Lovenox to begin today -Call with any changes in neuro or motor exam -Discussed with Dr. Palomino Subjective: Pt resting in bed, states he thinks that the oxycodone is causing him to feel confused and requests change to [place] Objective: AAOx3 NAD VSS MAEx4 Motor 5/5 BLE with exception of L EHL 5-/5 +LT JPx2 Urinary Catheter in Place: No Catheter Insertion Date: 06/20/17 - Physician Discussed Patient with : Candelario Neurosurgery Physical Exam - Vitals, I&O, Labs I and O 06/30/17 07/01/17 07/02/17 05:59 05:59 05:59 Intake Total 5760 1162 Output Total 4240 1865 Balance 1520 -703 Weight 78.925 kg Intake: Oral (ml) 360 300 IV Intake (ml) 5000 IV Infused (ml) 400 862 Albumin 5% 500 ml IV .STK 250 -MED ONE Rx#:[id number] NS W/ 20 KCl/L 1,000 ml @ 162 75 mls/hr IV CONT SHARRI Rx #:[id number] Ns 500 ml @ Wide Open IV 500 ONCE ONE Rx#:[id number] ceFAZolin 1 GM/DEXTROSE 1 50 gm IV .STK-MED ONE Rx#: [id number] ceFAZolin 2 GM/DEXTROSE 100 200 100 ml @ 200 mls/hr IV ONCALL ONE Rx#:[id number] Output: Urine (ml) 3350 1600 Catheter 250 Toilet 650 Urinal 2700 1350 Estimated Blood Loss (ml) 700 GRACIE Drain Output (ml) 190 265 Left Back Kp Thomas 120 50 Right Back Kp Thomas 70 215 Other: Intake Quantity Yes Sufficient Number of Voids Urinal 1 Vital Signs Temp Pulse Resp BP Pulse Ox 37.1 C 77 16 104/60 94 07/01/17 07:21 07/01/17 07:21 07/01/17 07:21 07/01/17 07:21 07/01/17 07:21 Laboratory Results 06/30/17 05:55 06/30/17 05:55 ICD10 Worksheet Patient Problems: Problems Problem Status Onset Other spondylosis with radiculopathy, lumbar region Acute Other spondylosis with radiculopathy, lumbar region Acute Pain Acute Pain Acute
[2017-07-01] MEDS: IPRATROPIUM/ALBUTEROL 3 ML DEYVIAL IH SCH ×3 (09:34→21:13)
[2017-07-01] MEDS: FLUTICASONE/SALMETER 250/50MCG DISKUS IH SCH ×2 (09:34→21:14)
[2017-07-01] MEDS: HYDROCODONE/APAP 10/325 TAB PO PRN ×3 (11:59→21:36)
--- NOTE | 2017-07-01 14:24 | HOSPPROG ---
Hospitalist Progress Note Assessment/Plan: #L5-S1 radiculopathy: POD #1 L5/S1 TLIF. Awaiting brace per NSGY #Mild toxic encephalopathy: resolved. Decreased Robaxin dose, now PRN. Change to hydrocodone since oxy too sedating #Staph/lactobacillus: likely contaminant cultures #Aspiration PNA: completed 5-day abx #Acute hypoxic resp failure: resolved. Due to PNA #Mild hypernatremia: likely mild insensible losses with PNA. Encourage PO #Sepsis: resolved. #Fever: resolved. Cont IV abs #Tachycardia: EKG personally reviewed, sinus tach. Resolved #Leukocytosis: due to steroids. Bld cultures likely contaminant, s/p abx for PNA #Diet: regular #DVT ppx: Lovenox Disp:cont inpt admission for back surgery, pain control Subjective: pain 6/10. Better with walking Objective: Vital Signs Temp Pulse Resp BP Pulse Ox 37.3 C 90 16 105/57 L 90 L 07/01/17 11:15 07/01/17 11:15 07/01/17 11:15 07/01/17 11:15 07/01/17 11:15 Laboratory Results 06/30/17 05:55 06/30/17 05:55 06/30/17 07/01/17 07/02/17 05:59 05:59 05:59 Intake Total 5760 1162 Output Total 4240 1865 Balance 1520 -703 PT 15.8 SEC (12.0-15.0) H 06/23/17 04:00 INR 1.26 (0.83-1.16) H 06/23/17 04:00 - Time Spent With Patient Time Spent with Patient: greater than 35 minutes (spent counseling patient and on pain control) Time Spent with Patient: Greater than 35 minutes spent on this patients care, greater than 50% of time spent counseling, educating, and coordinating care regarding the above mentioned plan. - Physical Exam Constitutional: no apparent distress Eyes: PERRL Ears, Nose, Mouth, Throat: moist mucous membranes Cardiovascular: regular rate and rhythym Respiratory: no respiratory distress, no rales or rhonchi Gastrointestinal: normoactive bowel sounds, soft, non-tender abdomen Genitourinary: no bladder fullness Skin: warm Musculoskeletal: full muscle strength Neurologic: AAOx3, CN II-XII Intact Psychiatric: interacting appropriately, not encephalopathic ICD10 Worksheet Patient Problems: Problems Problem Status Onset Other spondylosis with radiculopathy, lumbar region Acute Other spondylosis with radiculopathy, lumbar region Acute Pain Acute Pain Acute
[2017-07-01 19:59] LABS: IONIZED CALCIUM 1.11 MMOL/L (1.12-1.30)
[2017-07-01] MEDS: PATCH REMOVAL 1 EA PATCH TD SCH (21:37)
[2017-07-02] MEDS: HYDROCODONE/APAP 10/325 TAB PO PRN ×4 (00:42→21:01)
[2017-07-02] MEDS: METHOCARBAMOL 750 MG TAB PO PRN ×2 (00:43→10:48)
[2017-07-02] MEDS: GABAPENTIN 300 MG CAP PO SCH ×3 (05:32→21:00)
[2017-07-02 05:44] LABS: HEMATOCRIT 30.7 % (40.0-51.0); HEMOGLOBIN 10.1 g/dL (13.7-17.5); MEAN CELL HEMOGLOBIN 29.4 pg (27.9-34.1); MEAN CELL HEMOGLOBIN CONCENTR. 32.9 g/dL (32.4-36.7); MEAN CELL VOLUME 89.2 fL (81.5-99.8); RED BLOOD CELL COUNT 3.44 10^6/uL (4.40-6.38)
[2017-07-02 05:53] LABS: ANION GAP 7 mEq/L (8-16); CALCIUM 7.9 mg/dL (8.5-10.4); CARBON DIOXIDE 28 mEq/l (22-31); CHLORIDE 103 mEq/L (97-110); CREATININE 0.6 mg/dL (0.7-1.3); GLOMERULAR FILTRATION RATE > 60; GLUCOSE 202 mg/dL (70-100); POTASSIUM 3.9 mEq/L (3.5-5.2); SODIUM 138 mEq/L (134-144)
[2017-07-02] MEDS: FLUTICASONE/SALMETER 250/50MCG DISKUS IH SCH ×2 (09:28→20:30)
[2017-07-02] MEDS: IPRATROPIUM/ALBUTEROL 3 ML DEYVIAL IH SCH ×3 (09:28→20:29)
--- NOTE | 2017-07-02 10:46 | NEUSURGPN ---
Assessment/Plan: A: 76 yo male sp T12-S2 posterior instrumented fusion, L5/S1 TLIF, hardware exploration and revision POD#3 P: -Optimize pain management- MS Contin and [place] currently managing pain well -X-rays once brace arrives and if able to stand- Full standing x-rays Scoliosis series -Brace to be ordered by RN. To be worn when up and out of bed. Can get up prior to brace arriving. Should have brace prior to walking in halls and working with PT -Remove JPs today -Dressing changes -DVT prophs: TEDs, SCDs, Lovenox -Call with any changes in neuro or motor exam -Discussed with Dr. Palomino Subjective: Pt in bathroom, states he is doing well. Voiding well. Has pain but being managed better on [place] now. Brace has not arrived yet. Objective: AAOx3 NAD VSS MAEx4 JPx2 Incision c/d/i- dressed 06/29/17 20:00 Catheter Insertion Date: 06/20/17 - Physician Discussed Patient with : Candelario Neurosurgery Physical Exam - Vitals, I&O, Labs I and O 07/01/17 07/02/17 07/03/17 05:59 05:59 05:59 Intake Total 1162 1200 Output Total 1865 2385 Balance -703 -1185 Intake: Oral (ml) 300 1200 IV Infused (ml) 862 NS W/ 20 KCl/L 1,000 ml @ 162 75 mls/hr IV CONT SHARRI Rx #:[id number] Ns 500 ml @ Wide Open IV 500 ONCE ONE Rx#:[id number] ceFAZolin 2 GM/DEXTROSE 200 100 ml @ 200 mls/hr IV ONCALL ONE Rx#:[id number] Output: Urine (ml) 1600 2200 Bedside Commode 1100 Catheter 250 Toilet 600 Urinal 1350 500 GRACIE Drain Output (ml) 265 185 Left Back Kp Thomas 50 120 Right Back Kp Thomas 215 65 Other: Intake Quantity Yes Sufficient Number of Voids Bedside Commode 2 Urinal 1 Vital Signs Temp Pulse Resp BP Pulse Ox 36.7 C 91 12 101/68 93 07/02/17 07:26 07/02/17 09:31 07/02/17 09:31 07/02/17 07:26 07/02/17 09:31 Laboratory Results 08/10/17 05:30 07/02/17 05:30 ICD10 Worksheet Patient Problems: Problems Problem Status Onset Other spondylosis with radiculopathy, lumbar region Acute Other spondylosis with radiculopathy, lumbar region Acute Pain Acute Pain Acute
[2017-07-02] MEDS: methylPREDNISolone SOD SUCC 40 MG/ML VIAL IVP SCH (10:48)
[2017-07-02] MEDS: SENNOSIDES/DOCUSATE SODIUM TAB PO SCH ×2 (10:48→21:01)
[2017-07-02] MEDS: ALLOPURINOL 300 MG TAB PO SCH (10:48)
[2017-07-02] MEDS: ENOXAPARIN 40 MG/0.4 ML SYR SC SCH (10:49)
[2017-07-02] MEDS: FAMOTIDINE 20 MG TAB PO SCH ×2 (10:50→21:00)
[2017-07-02] MEDS: LIDOCAINE 5% 1 EA PATCH TD SCH (10:51)
[2017-07-02] MEDS: GLUCOSAMINE/CHONDROITIN CAP PO SCH (11:03)
[2017-07-02] MEDS: CETIRIZINE 10 MG TAB PO SCH (11:03)
[2017-07-02] MEDS: guaiFENesin 200 MG TAB PO SCH ×2 (11:04→21:00)
[2017-07-02] MEDS: MULTIVITAMINS 1 EACH TAB PO SCH (11:04)
--- NOTE | 2017-07-02 12:19 | HOSPPROG ---
Hospitalist Progress Note Assessment/Plan: Mr Gardner is a 76-year-old male with a history of multiple back surgeries. He was admitted on June 19 with increasing low back pain. Early in his hospitalization he developed hypoxemia and fever with concern for aspiration. He has been treated with ceftriaxone and azithromycin. There was concern that he had a bacteremia. Repeat blood culture show no growth. It is most likely that the blood cultures were contaminant. He has undergone imaging of the spine which shows a loose screw at L2. *L5-S1 radiculopathy: POD #3 L5/S1 TLIF. Awaiting brace /to be ordered by nursing staff * Pneumonia likely aspiration was treated with ceftriaxone and azithromycin resolved *gait instability had difficulty walking today will dc Robaxin/ legs started to give out * acute hypoxemic respiratory failure dc iv steroids today patient is on chronic prednisone of 10 mg daily * positive blood culture likely a contaminant * Mild hypernatremia:resolved * Sepsis: resolved. * Fever: none further * Tachycardia: non further * Leukocytosis: due to the steroids most likely * Acute toxic/metabolic encephalopathy: resolved *Change to hydrocodone since oxy too sedating *Plan: patient and his want him to go home. His gait is unsteady and I am concerned he will fall. Will dc Robaxin/ resume his home dose of prednisone. Will see how he is tomorrow. Subjective: Chavo is saying he only wants to go home and that rehab is out of the question. Objective: Vital Signs Temp Pulse Resp BP Pulse Ox 36.7 C 91 12 101/68 93 07/02/17 07:26 07/02/17 09:31 07/02/17 09:31 07/02/17 07:26 07/02/17 09:31 Laboratory Results 07/02/17 05:30 07/02/17 05:30 07/01/17 07/02/17 07/03/17 05:59 05:59 05:59 Intake Total 1162 1200 Output Total 7771 5245 90 Balance -703 -1185 -90 PT 15.8 SEC (12.0-15.0) H 06/23/17 04:00 INR 1.26 (0.83-1.16) H 06/23/17 04:00 - Physical Exam Constitutional: no apparent distress, appears nourished, not in pain Eyes: PERRL Ears, Nose, Mouth, Throat: hearing normal Cardiovascular: regular rate and rhythym Respiratory: no respiratory distress, reduced air movement (bases) Gastrointestinal: normoactive bowel sounds Skin: warm Musculoskeletal: generalized weakness Neurologic: AAOx3 Psychiatric: interacting appropriately ICD10 Worksheet Patient Problems: Problems Problem Status Onset Pain Acute Pain Acute Other spondylosis with radiculopathy, lumbar region Acute Other spondylosis with radiculopathy, lumbar region Acute
[2017-07-02] MEDS ORDERED: D50W 25 GM/50 ML SYR IVP PRN (19:03)
[2017-07-02 20:33] VITALS: RESP 16
[2017-07-02] MEDS: PATCH REMOVAL 1 EA PATCH TD SCH (21:01)
[2017-07-02] MEDS ORDERED: INSULIN REGULAR HUMAN 100 UNIT/ML SC ONE (21:45)
[2017-07-03] MEDS: GABAPENTIN 300 MG CAP PO SCH ×2 (05:28→13:07)
[2017-07-03 05:44] LABS: ADD DIFF? YES; ADD MORPH? NO; ADD SCAN? NO; ATYPICAL LYMPHOCYTE FLAG 0 (0-99); FRAGMENT RBC FLAG 0 (0-99); HEMATOCRIT 31.7 % (40.0-51.0); HEMOGLOBIN 10.3 g/dL (13.7-17.5); LEFT SHIFT FLG 40 (0-99); LIPEMIA HEMOLYSIS FLAG 80 (0-99); MEAN CELL HEMOGLOBIN 29.4 pg (27.9-34.1); MEAN CELL HEMOGLOBIN CONCENTR. 32.5 g/dL (32.4-36.7); MEAN CELL VOLUME 90.6 fL (81.5-99.8); MEAN PLATELET VOLUME 9.6 fL (8.7-11.7); PLATELET CLUMPS FLAG 0 (0-99); PLATELET COUNT 212 10^3/uL (150-400); RED CELL DISTRIBUTION WIDTH 15.2 % (11.5-15.2)
[2017-07-03 05:59] LABS: ANION GAP 8 mEq/L (8-16); CALCIUM 8.2 mg/dL (8.5-10.4); CARBON DIOXIDE 28 mEq/l (22-31); CHLORIDE 101 mEq/L (97-110); CREATININE 0.7 mg/dL (0.7-1.3); GLOMERULAR FILTRATION RATE > 60; GLUCOSE 183 mg/dL (70-100); POTASSIUM 3.9 mEq/L (3.5-5.2); SODIUM 137 mEq/L (134-144)
[2017-07-03 06:22] LABS: PLATELET ESTIMATE ADEQUATE (ADEQ)
[2017-07-03 07:49] VITALS: BP 107/75; TEMP 98
[2017-07-03] MEDS: INSULIN LISPRO 100 UNIT/ML SC SCH ×2 (08:22→13:07)
[2017-07-03] MEDS: guaiFENesin 200 MG TAB PO SCH (08:22)
[2017-07-03] MEDS: ENOXAPARIN 40 MG/0.4 ML SYR SC SCH (08:22)
[2017-07-03] MEDS: GLUCOSAMINE/CHONDROITIN CAP PO SCH (08:22)
[2017-07-03] MEDS: CETIRIZINE 10 MG TAB PO SCH (08:23)
[2017-07-03] MEDS: ALLOPURINOL 300 MG TAB PO SCH (08:23)
[2017-07-03] MEDS: MULTIVITAMINS 1 EACH TAB PO SCH (08:23)
[2017-07-03] MEDS: SENNOSIDES/DOCUSATE SODIUM TAB PO SCH (08:23)
[2017-07-03] MEDS: FAMOTIDINE 20 MG TAB PO SCH (08:23)
[2017-07-03] MEDS: LIDOCAINE 5% 1 EA PATCH TD SCH (08:24)
[2017-07-03] MEDS ORDERED: predniSONE 10 MG TAB PO SCH (09:00)
[2017-07-03] MEDS: IPRATROPIUM/ALBUTEROL 3 ML DEYVIAL IH SCH ×2 (09:19→16:05)
[2017-07-03] MEDS: FLUTICASONE/SALMETER 250/50MCG DISKUS IH SCH (09:19)
[2017-07-03 09:43] LABS: HEMOGLOBIN A1C 8.6 % (4.0-6.0)
[2017-07-03 09:50] VITALS: PULSE 91; O2SAT 92
[2017-07-03] MEDS: HYDROCODONE/APAP 10/325 TAB PO PRN (13:07)
--- NOTE | 2017-07-03 13:16 | HOSPPROG ---
Hospitalist Progress Note Assessment/Plan: Mr Gardner is a 76-year-old male with a history of multiple back surgeries. He was admitted on June 19 with increasing low back pain. Early in his hospitalization he developed hypoxemia and fever with concern for aspiration. He has been treated with ceftriaxone and azithromycin. There was concern that he had a bacteremia. Repeat blood culture show no growth. It is most likely that the blood cultures were contaminant. He has undergone imaging of the spine which shows a loose screw at L2. *L5-S1 radiculopathy: POD #4 L5/S1 TLIF. to wear a brace per neurosurgery *Newly diagnosed diabetes suspect his chronic prednisone use has affected this A1c is 8.6 with an average glucose of 200 will start metformin today nursing staff to teach him and his how to check glucoses asked dietary to see him for teaching * Pneumonia likely aspiration was treated with ceftriaxone and azithromycin resolved *gait instability had difficulty walking/much improved today * acute hypoxemic respiratory failure dc iv steroids yesterdat patient is on chronic prednisone of 10 mg daily * positive blood culture likely a contaminant * Mild hypernatremia:resolved * Sepsis: resolved. 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 Explained his glucose this morning was very high and I am concerned about discharging him. Also, wbc is elevated/ he and his would like him discharged today if at all possible. CM looking at home care now in [place]. Subjective: Chavo has no complaints and wants to go home. Objective: Vital Signs Temp Pulse Resp BP Pulse Ox 36.6 C 91 16 107/75 92 07/03/17 07:49 07/03/17 09:23 07/03/17 09:23 07/03/17 07:49 07/03/17 09:23 Laboratory Results 07/03/17 05:30 07/03/17 05:30 07/02/17 07/03/17 07/04/17 05:59 05:59 05:59 Intake Total 1200 Output Total 2385 880 Balance -1185 -880 PT 15.8 SEC (12.0-15.0) H 06/23/17 04:00 INR 1.26 (0.83-1.16) H 06/23/17 04:00 - Physical Exam Constitutional: no apparent distress, appears nourished, not in pain Eyes: PERRL Ears, Nose, Mouth, Throat: hearing normal Respiratory: no respiratory distress Skin: warm Musculoskeletal: generalized weakness Neurologic: AAOx3 Psychiatric: interacting appropriately, not anxious ICD10 Worksheet Patient Problems: Problems Problem Status Onset Other spondylosis with radiculopathy, lumbar region Acute Other spondylosis with radiculopathy, lumbar region Acute Pain Acute Pain Acute
--- NOTE | 2017-07-03 13:23 | SOAPPROG ---
SOAP Progress Note Assessment/Plan: Assessment: 76 yo male with prior L2-[address] 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 WBC remain high, likely due to chronic steroid use. Medicine managing this and Blood sugars. Doing well. Tolerating Clamshell Plan: Needs standing scoliosis xrays today in Clamshell brace PT/OT as tolerated in brace. DC dispo per medicine team. Remove remaining GRACIE today. Change dressing prior to DC. discharge planning. Subjective: sitting in bedside chair. No complaints. eager to go home. Tolerating Clamshell brace. Objective: Vital Signs Temp Pulse Resp BP Pulse Ox 36.6 C 91 16 107/75 92 07/03/17 07:49 07/03/17 09:23 07/03/17 09:23 07/03/17 07:49 07/03/17 09:23 Laboratory Results 07/03/17 05:30 07/03/17 05:30 07/02/17 07/03/17 07/04/17 05:59 05:59 05:59 Intake Total 1200 Output Total 2385 880 Balance -1185 -880 PT 15.8 SEC (12.0-15.0) H 06/23/17 04:00 INR 1.26 (0.83-1.16) H 06/23/17 04:00 NEURO: MARTINEZ, sens +LT ambulatory in brace GRACIE: 180 overnight (will DC today) ICD10 Worksheet Patient Problems: Problems Problem Status Onset Other spondylosis with radiculopathy, lumbar region Acute Other spondylosis with radiculopathy, lumbar region Acute Pain Acute Pain Acute
[2017-07-03] MEDS ORDERED: metFORMIN HCL 500 MG TAB PO SCH (13:30)
--- NOTE | 2017-07-03 15:14 | PDIAF ---
- Diagnosis Diagnosis: L5-S1 radiculopathy s/p TLIG/new dx of diabetes, leukocytois Code Status: Full Code - Medication Management Discharge Medications: Medications to Continue on Transfer Allopurinol [Allopurinol 300 MG (RX)] 300 mg PO DAILY 06/05/17 [Last Taken 06/18] Cetirizine [ZyrTEC 10 mg (*)] 10 mg PO DAILY 06/05/17 [Last Taken 06/18/17] Denosumab [Prolia] 60 mg SQ Q182D 06/05/17 [Last Taken 03/23/17] Fluticasone/Salmeter 250/50Mcg [Advair 250/50 (*)] 1 puffs IH BID 06/05/17 [ Last Taken 06/18/17] Glucosamine/Chondroitin [Glucosamine/Chondroitin (*)] 1 each PO DAILY 06/05/17 [ Last Taken 06/18/17] Herbals/Supplements -Info Only 1 ea PO DAILY 06/05/17 [Last Taken 06/18/17] Methocarbamol [Robaxin 750 mg (*)] 750 mg PO Q6H PRN 06/05/17 [Last Taken ] Multivitamins [Multivitamin (*)] 1 each PO DAILY 06/05/17 [Last Taken 06/18/17] Ranitidine HCl [Zantac] 150 mg PO BID PRN 06/05/17 [Last Taken 06/18/17] Ipratropium/Albuterol [Duoneb (*)] 3 ml IH QID PRN 06/06/17 [Last Taken 06/18/17 ] Propylene Glycol/Peg 400/Pf [Systane 0.3-0.4% Eye Drops] 1 each OP DAILY PRN [Last Taken 06/18/17] predniSONE [Prednisone] 10 mg PO DAILY 06/06/17 [Last Taken 06/18/17] guaiFENesin [Guaifenesin] 400 mg PO BID 06/19/17 [Last Taken 06/18/17] Acetaminophen [Tylenol ES 500 mg (*)] 1,000 mg PO Q8HRS PRN #0 tab 07/03/17 [ Last Taken Unknown] Famotidine [Pepcid 20 MG (*)] 20 mg PO BID tab 07/03/17 [Last Taken Unknown] Gabapentin [Neurontin 300 MG (*)] 600 mg PO Q8HRS #60 cap 07/03/17 [Last Taken Unknown] HYDROcodone/APAP 10/325 [[place] 10/325 (*)] 1 tab PO Q4 PRN #20 tab 07/03/17 [ Last Taken Unknown] Polyethylene Glycol 3350 [Miralax 17 gm (*)] 17 gm PO DAILY PRN #0 pkt 07/03/17 [Last Taken Unknown] Sennosides/Docusate Sodium [Senokot-S] 1 - 2 tab PO BID tab 07/03/17 [Last Taken Unknown] metFORMIN HCL [Glucophage 500 mg (*)] 500 mg PO BIDMEAL #30 tab 07/03/17 [Last Taken Unknown] Discharge Medications: Refer to the Discharge Home Medication list for PRN reason. - Orders Services needed: Home Care, Registered Nurse, Physical Therapy, Occupational Therapy Home Care Face to Face: I certify that this patient was under my care and that I had the required [id number] encounter meeting the encounter requirements on the discharge day. My findings support the fact that the patient is homebound as defined in CMS Chapter 7 Medicare Benefits Manual 30.1.1, The condition of the patient is such that there exists a normal inability to leave home and consequently, leaving home would require a considerable and taxing effort. Diet Recommendation: ADA 1800 consistent carb Diet Texture: Regular Texture Diet, Thin Liquids, Meds Whole w/Liquids Activity/Weight Bearing Restrictions: No bending, twisting or lifting over 10 lbs. Wear brace when out of bed. Call [phone] with questions, concerns and to confirm post op appt. Dr Palomino. Additional: you have a new diagnosis of diabetes type 2/ make an appointment to see your primary care doctor in one week for f/u care from being hospitalized. stay on a diabetic diet as recommended by our configuration management administrator. get a glucometer and check glucose 2 x day initially, if glucose > 350. metformin is a new drug for you/ monitor for gi upset or diarrhea. take Robaxin only if your back has spasms. try Tylenol for the pain, I gave you a script for [place]/ do not take any OxyContin if you have any left over at home. In addition, you have a very elevated wbc count/ may be from steroids, but need this rechecked with your doctor and follow up/ if you develop fever, chills, chest pain or shortness of breath; return to the ER. - Labs/Radiology BMP Date: 07/06/17 CBC Date: 07/06/17 - Follow Up Care Current Providers and Referrals: Patient,NotPresent [Unknown] - Niko Palomino MD [Medical Doctor] -
--- NOTE | 2017-07-03 17:17 | GDS ---
[f rep st] DISCHARGE SUMMARY DISCHARGE DIAGNOSES: 1. L5-S1 radiculopathy, postop L5-S1 transforaminal lumbar interbody fusion. 2. Newly diagnosed diabetes. 3. Aspiration pneumonia. 4. Gait instability. 5. Acute hypoxemic respiratory failure. 6. Positive blood culture. 7. Mild hyperatremia. 8. Sepsis. 9. Fever. 10. Tachycardia. 11. Leukocytosis. 12. Acute toxic metabolic encephalopathy, resolved. HISTORY OF PRESENT ILLNESS: Briefly, the patient is a 76-year-old male with a history of multiple back surgeries. He was admitted on June 19 with increasing low back pain. Early in his hospitalization he developed hypoxemia, fever with concern for aspiration. He was treated with ceftriaxone and azithromycin. There was concern that he had bacteremia. His repeat blood culture showed no growth. It was likely a contaminant. He underwent surgery with Dr. Niko Palomino. He has done extremely well after surgery. He will be discharged home with home care. HOSPITAL COURSE: 1. L5-S1 radiculopathy. He is postop day #4 for L5-S1 TLIF. He will be wearing a clamshell brace per Neurosurgery. He and his are very aware of when he has to wear a brace and when it is okay to take off. 2. Newly diagnosed diabetes. He said he thought he had a history of this but then it went away. I started him on metformin. His A1c is 8.6 with an average glucose of 200. Nursing staff is teaching him and his how to check his glucoses and to call the doctor if it is greater than 350. He also has been recommended to be on an ADA diet. If his glucoses stay elevated, he may need insulin down the road but will have him follow up with his primary care provider. 3. Aspiration pneumonia. It was treated with ceftriaxone and azithromycin. This has resolved. 4. Gait instability. Much improved. 5. Acute hypoxemic respiratory failure. This is much improved. He is on chronic prednisone 10 mg daily. 6. Positive blood cultures/contaminant. 7. Mild hypernatremia, resolved. 8. Sepsis, resolved. 9. Fever, none further. 10. Tachycardia, none further. 11. Leukocytosis. His white blood cell count has been elevated consistently. He does not have any fever or chills. I suspect this is mainly due to the steroids. Will have a CBC checked in a few days and follow up with his primary care provider. 12. Acute toxic metabolic encephalopathy. This resolved with stopping him on Oxy. He takes 1 Pilger very infrequently with good pain relief. CONDITION AT DISCHARGE: Stable. Blood pressure is 107/75, heart rate is 88, respiratory rate is 16, O2 saturation on room air 92%, temperature is 36.6 Celsius. MEDICATIONS AT DISCHARGE: Please see the EMR. DISCHARGE INSTRUCTIONS: 1. No bending, twisting or lifting greater than 10 pounds. 2. Wear brace out of bed. 3. Follow up with Dr. Palomino, make an appointment. 4. He has a new diagnosis of diabetes type 2. I want him to see his primary care provider in 1 week. He has been started on metformin. 5. He will get a glucometer and recommend he check his glucoses a minimum of 2 times a day. If his glucose is greater than 350, he calls PCP. 6. Metformin is a new drug for him. If he has frequent bouts of diarrhea or GI distress, to follow up with his doctor. 7. To stop taking OxyContin and only take the Pilger for his pain. Greater than 30 minutes discharging and coordinating his care. /[id number]/MODL MTDD
== END 2017-07-03 16:47 | disposition home health service (06) | DRG 459 ==
LOC: F3N 20:35 → OBSVTOIN 21:12 → F3N 06-20 17:47 → F2N 06-20 17:59 → F3N 06-23 15:21
PROVIDERS: ADMIT Internal Medicine; ATTEND Internal Medicine
PROC: 02HV33Z Insertion of Infusion Device into Superior Vena Cava, Percutaneous Approach (ICD-10-PCS; 2017-06-21)
PROC: 3E0S33Z Introduction of Anti-inflammatory into Epidural Space, Percutaneous Approach (ICD-10-PCS; 2017-06-23)
PROC: 3E0S3BZ Introduction of Anesthetic Agent into Epidural Space, Percutaneous Approach (ICD-10-PCS; 2017-06-23)
PROC: 0QH304Z Insertion of Internal Fixation Device into Left Pelvic Bone, Open Approach (ICD-10-PCS; principal; 2017-06-29 13:30)
PROC: 0QP004Z Removal of Internal Fixation Device from Lumbar Vertebra, Open Approach (ICD-10-PCS; principal; 2017-06-29 13:30)
PROC: 0SG30AJ Fusion of Lumbosacral Joint with Interbody Fusion Device, Posterior Approach, Anterior Column, Open Approach (ICD-10-PCS; principal; 2017-06-29 13:30)
PROC: 0SG3071 Fusion of Lumbosacral Joint with Autologous Tissue Substitute, Posterior Approach, Posterior Column, Open Approach (ICD-10-PCS; principal; 2017-06-29 13:30)
PROC: 8E0WXBZ Computer Assisted Procedure of Trunk Region (ICD-10-PCS; principal; 2017-06-29 13:30)
PROC: 0QU00JZ Supplement Lumbar Vertebra with Synthetic Substitute, Open Approach (ICD-10-PCS; principal; 2017-06-29 13:30)
PROC: 0PU40JZ Supplement Thoracic Vertebra with Synthetic Substitute, Open Approach (ICD-10-PCS; principal; 2017-06-29 13:30)
PROC: 0QH204Z Insertion of Internal Fixation Device into Right Pelvic Bone, Open Approach (ICD-10-PCS; principal; 2017-06-29 13:30)
PROC: 0RGA071 Fusion of Thoracolumbar Vertebral Joint with Autologous Tissue Substitute, Posterior Approach, Posterior Column, Open Approach (ICD-10-PCS; principal; 2017-06-29 13:30)
PROC: 4A10X4G Monitoring of Central Nervous Electrical Activity, Intraoperative, External Approach (ICD-10-PCS; principal; 2017-06-29 13:30)
PROC: 0SG10Z1 (ICD-10-PCS; principal; 2017-06-29 13:30)
DX: M51.17 Intervertebral disc disorders with radiculopathy, lumbosacral region (principal); T84.296A Other mechanical complication of internal fixation device of vertebrae, initial encounter; Z98.1 Arthrodesis status; M54.16 Radiculopathy, lumbar region; M81.0 Age-related osteoporosis without current pathological fracture; Z53.09 Procedure and treatment not carried out because of other contraindication; J69.0 Pneumonitis due to inhalation of food and vomit; J96.01 Acute respiratory failure with hypoxia; A41.9 Sepsis, unspecified organism; G92 Toxic encephalopathy; T46.3X5A Adverse effect of coronary vasodilators, initial encounter; F11.20 Opioid dependence, uncomplicated; E11.65 Type 2 diabetes mellitus with hyperglycemia; J45.909 Unspecified asthma, uncomplicated; M10.9 Gout, unspecified; Z87.891 Personal history of nicotine dependence
CPT/HCPCS: 87449-90; 92610-GN; 97116-GP; 97162-GP; 97164-GP; 97166-GO; 97168-GO; 97530-GP; 97535-GO; A9585; C1751; G8978-GP-CI; G8978-GP-CJ; G8978-GP-CK; G8979-GP-CI; G8980-GP-CI; G8987-GO-CJ; G8987-GO-CK; G8988-GO-CI; G8996-GN-CI; G8997-GN-CI; G8998-GN-CI; J0295; J0456; J0690; J0696; J1100; J1170; J1650; J1815; J2274; J2370; J2405; J2704; J2800; J2997; J3010; J3230; J3301; J3370; J7060; P9041; Q9967

== ENCOUNTER 2017-11-02 12:09 | Observation (INO) | payer OTHER ==
--- NOTE | 2017-11-02 12:31 | PDANEPAE ---
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 ANE Past Medical History - Cardiovascular History Hx Hypertension: Yes Hx Arrhythmias: No Hx Chest Pain: No Hx Coronary Artery / Peripheral Vascular Disease: No Hx CHF / Valvular Disease: No Hx Palpitations: No Cardiovascular History Comment: pcp monitors bp - Pulmonary History Hx COPD: No Hx Asthma/Reactive Airway Disease: Yes Hx Recent Upper Respiratory Infection: No Hx Oxygen in Use at Home: No Hx Sleep Apnea: No Sleep Apnea Screening Result - Last Documented: Positive Pulmonary History Comment: uses inhalers- instructed pt to bring to hospital. adelina triggers - Neurologic History Hx Cerebrovascular Accident: Yes Hx Seizures: No Hx Dementia: No Neurologic History Comment: stroke 30 yrs ago with a few mini strokes since, none in a couple years - Endocrine History Hx Diabetes: Yes Hypothyroid: No Hyperthyroid: No Obesity: no Endocrine History Comment: type 2 - Renal History Hx Renal Disorders: No - Liver History Hx Hepatic Disorders: No - Neurological & Psychiatric Hx Hx Neurological and Psychiatric Disorders: No - Cancer History Hx Cancer: Yes Cancer History Comment: skin ca on forehead, shoulder, back last one 3 yrs ago - Congenital Disorder History Hx Congenital Disorders: No - GI History GERD: mild Hx Gastrointestinal Disorders: Yes Gastrointestinal History Comment: reflux - Other Health History Other Health History: wears glasses. rash on right ankle currently. bruises easily - Chronic Pain History Chronic Pain: Yes (shoulder and neck) - Surgical History Prior Surgeries: 06/29/17 TLIF l5-s1, t12-s2 instrumentation and fusion with Palomino. 5 previous back surgeries. umbilical hernia 2012. eye surgery 2013. holly 30 yrs ago ANE Review of Systems Review of systems is: negative Review of Systems: - Exercise capacity Exercise capacity: >=4 METS METS (RN): 4 METS ANE Patient History - Allergies Allergies/Adverse Reactions: Sulfa (Sulfonamide Antibiotics) Allergy (Mild, Verified 11/02/17 13:08) Congestion sildenafil [From Viagra] Allergy (Verified 11/02/17 13:08) nasal and throat congestion tadalafil [From Cialis] Allergy (Verified 11/02/17 13:08) nasal and throat congestion - Home Medications Home medications: home medication list seen and reviewed Home Medications: Allopurinol [Allopurinol 300 MG (RX)] 300 mg PO DAILY 06/05/17 [Last Taken 11/01] Cetirizine [ZyrTEC 10 mg (*)] 10 mg PO DAILY 06/05/17 [Last Taken 11/01/17] Ranitidine HCl [Zantac] 150 mg PO DAILY PRN 06/05/17 [Last Taken 11/01/17] Ipratropium/Albuterol [Duoneb (*)] 3 ml IH TID PRN 06/06/17 [Last Taken 06:00] Propylene Glycol/Peg 400/Pf [Systane 0.3-0.4% Eye Drops] 1 each OP DAILY PRN [Last Taken 11/02/17 09:00] predniSONE [Prednisone] 10 mg PO DAILY 06/06/17 [Last Taken 11/01/17] Fluticasone/Salmeter 250/50Mcg [Advair 250/50 (*)] 1 puffs IH BID 10/28/17 [ Last Taken 11/02/17 06:00] Gabapentin [Neurontin 300 MG (*)] 300 mg PO BID 10/28/17 [Last Taken 11/01/17] Metoprolol Succinate Xr [Toprol Xl 25 mg (*)] 25 mg PO DAILY 10/28/17 [Last Taken 11/01/17] guaiFENesin [Mucinex 600 MG (*)] 600 mg PO BID 10/28/17 [Last Taken 11/01/17] metFORMIN HCL [Glucophage 500 mg (*)] 500 mg PO BIDMEAL 10/28/17 [Last Taken 09/08] - NPO status NPO Status: no food or drink >8 hours - Anes Hx Anes Hx: no prior problems - Smoking Hx Smoking Status: Never smoked Marijuana use: No - Alcohol Use Alcohol Use: Rarely - Family Anes Hx Family Anes Hx: neg - N/A Family Hx Anesthesia Complications: none ANE Labs/Vital Signs - Vital Signs Vital Signs: reviewed preoperatively; see RN documention for details Height: 180.34 cm Weight: 77.111 kg ANE Physical Exam - Airway Neck exam: FROM Mallampati Score: Class 2 Mouth exam: poor dentition - Pulmonary Pulmonary: no respiratory distress - Cardiovascular Cardiovascular: regular rate and rhythym - ASA Status ASA Status: III ANE Anesthesia Plan Anesthesia Plan: general endotracheal anesthesia Lines/Monitors: additional IV Total IV Anesthesia: No
[2017-11-02] MEDS ORDERED: GABAPENTIN 300 MG CAP PO ONE (12:42)
[2017-11-02] MEDS ORDERED: ACETAMINOPHEN 500 MG TAB PO ONE (12:42)
[2017-11-02] MEDS ORDERED: ceFAZolin 2 GM/SWFI 2 GM/20 ML SYR IVP ONE (12:42)
[2017-11-02] MEDS ORDERED: LR 1,000 ML IV ONE (12:43)
[2017-11-02] MEDS ORDERED: CHLORHEXIDINE GLUC HIBICLENS 118 ML BTL TP ONE (13:14)
[2017-11-02] MEDS ORDERED: SURGIFLO MATRIX KIT WITH THROMBIN 8ml TP ONE (13:14)
[2017-11-02] MEDS ORDERED: BUPIVACAINE 0.25% 30 ML SDV ONE (13:15)
[2017-11-02] MEDS ORDERED: BACITRACIN 50,000 UNITS/10 ML SYR IRR ONE (13:15)
[2017-11-02] MEDS ORDERED: THROMBIN (BOVINE) 5,000 UNIT VIAL TP ONE (13:15)
[2017-11-02] MEDS ORDERED: fentaNYL 100 MCG/2 ML INJ ONE (13:26)
[2017-11-02] MEDS ORDERED: REMIFENTANIL HCL 1 MG VIAL ONE (13:26)
[2017-11-02] MEDS ORDERED: PROPOFOL 200 MG/20 ML VIAL ONE (13:26)
[2017-11-02] MEDS ORDERED: PROPOFOL/EMULSION 500 MG/50 ML BOTTLE IV ONE (13:26)
[2017-11-02] MEDS ORDERED: DEXAMETHASONE 4 MG/ML VIAL ONE ×2 (14:06)
[2017-11-02] MEDS ORDERED: LIDOCAINE 2% 100 MG/5 ML SYR ONE (14:07)
[2017-11-02] MEDS ORDERED: ROCURONIUM 100 MG/10 ML VIAL ONE (14:07)
[2017-11-02] MEDS ORDERED: HYDROmorphONE/DILAUDID 1 MG/ML INJ IVP PRN (15:16)
[2017-11-02] MEDS ORDERED: HYDROCODONE/APAP 5/325 TAB PO PRN ×2 (15:16→17:08)
[2017-11-02] MEDS ORDERED: LR 500 ML IV PRN (15:16)
[2017-11-02] MEDS ORDERED: NALOXONE HCL 0.4 MG/ML INJ IVP PRN (15:16)
[2017-11-02] MEDS ORDERED: ONDANSETRON 4 MG/2 ML VIAL IVP PRN ×2 (15:16→17:04)
[2017-11-02] MEDS ORDERED: fentaNYL 100 MCG/2 ML INJ IVP PRN (15:16)
[2017-11-02] MEDS ORDERED: HYDROmorphONE/DILAUDID 1 MG/ML INJ ONE (16:52)
--- NOTE | 2017-11-02 16:59 | POSTANESTH ---
Post Anesthetic Evaluation Cardiovascular Status: Normal, Stable, Similar to Pre-Op Cond Respiratory Status: Normal, Stable, Similar to Pre-op Cond. Level of Consciousness/Mental Status: Can Participate in Eval, Alert and Oriented Pain Control: Adequate, Prn Tx Ordered Nausea/Vomiting Control: Adequate, Prn Tx Ordered Complications Possibly Related to Anesthesia: None Noted
[2017-11-02] MEDS ORDERED: ONDANSETRON DISINTEGRATING 4 MG TAB PO PRN (17:04)
[2017-11-02] MEDS ORDERED: BISACODYL 10 MG SUPP PR PRN (17:04)
[2017-11-02] MEDS ORDERED: POLYETHYLENE GLYCOL 3350 17 GM PKT PO PRN (17:04)
[2017-11-02] MEDS ORDERED: MAGNESIUM HYDROXIDE 30 ML UDCUP PO PRN (17:04)
[2017-11-02] MEDS ORDERED: diphenhydrAMINE 25 MG CAP PO PRN (17:04)
[2017-11-02] MEDS ORDERED: LACTULOSE 20 GM/30 ML UDCUP PO PRN (17:04)
[2017-11-02] MEDS ORDERED: METHOCARBAMOL 750 MG TAB PO PRN (17:08)
[2017-11-02] MEDS ORDERED: IPRATROPIUM/ALBUTEROL 3 ML DEYVIAL IH PRN (17:09)
[2017-11-02] MEDS ORDERED: NS W/ 20 KCl/L 1,000 ML IV SCH (17:15)
[2017-11-02] MEDS ORDERED: metFORMIN HCL 500 MG TAB PO SCH (18:00)
--- NOTE | 2017-11-02 18:20 | POSTOPPROG ---
Post Op Note Date of Operation: 11/02/17 Surgeon: Niko Palomino [employer] Consultant: Keiry Coronado PA-C Anesthesia: GET(General Endotracheal) Pre-op Diagnosis: Cervical Stenosis Post-op Diagnosis: Same Procedure: ACDF C4/5 Inf/Abcess present in the surg proc area at time of surgery?: No Depth: Organ Space EBL: Minimal (25) Complications: None, see full dictated operative report SOAP Progress Note Assessment/Plan: Assessment: Plan: 11/02/17 18:18 S: Patient in PACU, stable and denies neck pain at the moment. O: NAD, VSS Neck is soft, supple and wo induration PERRL EOMI CN II-XII grossly intact BUE 5/5 BLE 5/5 Incision c/d/i- dermabond A: 77 yo male sp ACDF C4/5 P: -Admit to med/surg for observation -Optimize pain management -Advance diet as tolerated -No collar needed, no extreme twisting of neck, no lifting more than 10 pounds -postop x-rays tonight if able -Dispo- If doing well could go home this evening, if not, tomorrow morning -Seen by Dr. Palomino in PACU as well Objective: Vital Signs Temp Pulse Resp BP Pulse Ox 36.1 C 75 12 132/78 H 94 11/02/17 17:59 11/02/17 17:59 11/02/17 17:59 11/02/17 17:59 11/02/17 17:59 11/01/17 11/02/17 11/03/17 05:59 05:59 05:59 Intake Total 1730 Balance 1730
--- NOTE | 2017-11-02 18:56 | GOP ---
[f rep st] OPERATIVE REPORT DATE OF OPERATION: 11/02/2017 SURGEON: Niko Palomino MD NEUROSURGEON: Niko Palomino MD PARENT COACH: Keiry Coronado PA-C PREOPERATIVE DIAGNOSIS: Severe cervical stenosis at C4-5. POSTOPERATIVE DIAGNOSIS: Severe cervical stenosis at C4-5. PROCEDURE PERFORMED: 1. C4-5 anterior cervical diskectomy and fusion. 2. Placement of anterior instrumentation at C4, C5. 3. Interbody device at C4-5. 4. Use of the operative microscope. 5. Intraoperative neurophysiologic monitoring including somatosensory evoked potentials and motor ev oked potentials. 6. [place] of local autograft. 7. Use of allograft Xpanse cadaver bone. FINDINGS: SPECIMENS: None. ESTIMATED BLOOD LOSS: 25 cc. INDICATIONS: The patient is a 77-year-old man who is well known to me as I have operated on his lumb ar spine. He was having some arm symptoms and had an MRI with his primary care physician a few weeks ago which showed a large disk bulge at C4-5 with spinal cord compression and severe stenosis. He pr esents today electively for surgery. DESCRIPTION OF PROCEDURE: After informed consent was obtained from the patient, the patient was brou ght to the operating room, was placed in supine position on the operating table. A formal time-out w as performed, identifying the patient by name, medical record number, and date of . Preoperativ e antibiotics were given. Endotracheal tube was placed and general endotracheal anesthesia was marques hly induced. All appropriate monitoring leads were placed for intraoperative somatosensory-evoked po tentials and motor-evoked potentials. The head was extended and a 5-pound weight was placed on a chi nstrap. The site of the incision was localized using the fluoroscopy and a paramedian incision was m arked on the anterior neck. 10 cc of 0.25% Marcaine with epinephrine was infiltrated in the skin for hemostasis. The neck was prepped and draped in the normal sterile fashion. Skin incision made usin g a 10 blade and the subcutaneous tissues were dissected using monopolar electrocautery. The skin wa s undermined over the platysma and the platysma was then opened in line with its fibers. The avascul ar plane between the midline structures and the sternocleidomastoid was then dissected down to the pr evertebral fascia which was opened sharply. A disk space marker was then placed identifying the C4-5 disk space. The prevertebral fascia and disk were then opened using the Bovie and the longus colli muscles were elevated laterally. Self-retaining retractors were placed. [place] pins were placed in the C4 and C5 vertebral bodies and distraction was placed across the disk space. We then brought the operative microscope into the [facility]. Complete diskectomy was performed using curettes and Kerrison punches. As we got posteriorly, o nce the posterior longitudinal ligament was opened, a large extruded piece of disk fragment was remov ed and this was the compressing force on the spinal cord. The remainder of the posterior longitudina l ligament was opened and removed and we were able to feel out into the foramen which were completely open. At this point, the decompression was complete. The endplates were drilled in parallel and the cartil aginous endplates were removed. The disk space was then sized for a 7 x 16 x 14 mm Medtronic anatomi c PTC cage which was packed with an 8 x 6 x 9 Xpanse allograft and the locally harvested autograft fr om the endplates. Lateral radiograph confirmed good placement. The motor-evoked potentials remained stable. We then sized the disk space for a 17 mm Medtronic Zevo plate and this was secured to the v ertebral bodies using a 3.5 x 15 mm titanium screws. Final x-rays were obtained showing the hardware in good placement without any malposition. Again, the motor evoked potentials remained stable. All hemostasis was obtained using bipolar electrocautery until the wound was completely dry. The rhina tysma was then closed using interrupted 3-0 Vicryl. The deep dermis was closed using interrupted 3-0 Vicryl. The skin was closed using Dermabond. Sterile dressings were placed. The patient was awake yury in the operating room where he was extubated and transferred to the PACU in stable condition. Th ere were no operative complications. I was scrubbed and present for the entire procedure. FLUIDS/URINE OUTPUT: Per the anesthesia record. DRAINS: None. /[id number]/MODL
[2017-11-02 19:50] VITALS: BP 131/83; PULSE 82; RESP 19; TEMP 98.2; O2SAT 90
[2017-11-02] MEDS ORDERED: SENNOSIDES/DOCUSATE SODIUM TAB PO SCH (21:00)
[2017-11-02] MEDS ORDERED: GABAPENTIN 300 MG CAP PO SCH (21:00)
[2017-11-02] MEDS ORDERED: guaiFENesin 600 MG TAB.ER PO SCH (21:00)
[2017-11-02] MEDS ORDERED: FLUTICASONE/SALMETER 250/50MCG DISKUS IH SCH (21:00)
[2017-11-02] MEDS ORDERED: ACETAMINOPHEN 500 MG TAB PO SCH (22:00)
[2017-11-03] MEDS ORDERED: predniSONE 10 MG TAB PO SCH (09:00)
[2017-11-03] MEDS ORDERED: ALLOPURINOL 300 MG TAB PO SCH (09:00)
[2017-11-03] MEDS ORDERED: CETIRIZINE 10 MG TAB PO SCH (09:00)
[2017-11-03] MEDS ORDERED: METOPROLOL SUCCINATE XR 25 MG TAB PO SCH (09:00)
--- NOTE | 2017-11-03 09:20 | ASDISCHSUM ---
Discharge Information Plan Status:Home with No Needs Medically Cleared to Leave: Discharge Date:11/02/2017 08:05 PM CM D/C Disposition:Home, Routine, Self-Care ADT D/C Disposition:Home, Routine, Self-Care Projected Discharge Date:11/02/2017 08:05 PM Transportation at D/C:Family Discharge Delay Reason: Follow-Up Date:11/02/2017 08:05 PM Discharge Slot: Final Diagnosis: Placement Information Patient Contact Information Contact Name:DEBORAH Relationship: Address:[address] [place] [address] Work Phone: City:[facility] Phone: [facility]/Zip Code:[place] [address] Email: Financial Information Financial Class: Primary Plan Desc:MEDICARE OUTPATIENT Primary Plan Number:[id number] Secondary Plan Desc:BRIGIDO YOUNGTY Secondary Plan Number:[id number] Assessment Information Intervention Information
== END 2017-11-02 20:05 | disposition home or self-care (01) ==
LOC: F3N 12:09
PROVIDERS: ADMIT Neurological Surgery; ATTEND Neurological Surgery
PROC: 0RH104Z Insertion of Internal Fixation Device into Cervical Vertebral Joint, Open Approach (ICD-10-PCS; principal; 2017-11-02 14:00)
PROC: 0RG10AJ Fusion of Cervical Vertebral Joint with Interbody Fusion Device, Posterior Approach, Anterior Column, Open Approach (ICD-10-PCS; principal; 2017-11-02 14:00)
DX: M48.02 Spinal stenosis, cervical region (principal)
CPT/HCPCS: 22551; 22845; 22853; 76001; C1713; C1762; J0171; J0690; J1100; J1170; J2001; J2704; J3010

== ENCOUNTER 2017-12-21 18:04 | Inpatient (IN) | payer OTHER ==
--- NOTE | 2017-12-21 18:22 | EDPHY ---
H & P Stated Complaint: Sent from [place] w/confusion,weakness,subje fever Time Seen by Provider: 12/21/17 18:20 HPI/ROS: CHIEF COMPLAINT: Referred to ED for confusion HISTORY OF PRESENT ILLNESS: The patient is referred to the emergency department from the [facility] for hospitalization secondary to acute confusion and concern about possible need for Neurology consultation. The patient has a history of chronic neck and back pain. He recently started Valium for this condition. Over the past several days he has been having increasing confusion, difficulty walking and reportedly has been sleeping all day. The patient's was concerned that these symptoms were consistent with a prior episode of pneumonia which prompted him to go to [facility]. I was contacted by the physician at [facility] who requested direct admission to the hospital however the patient was directed to the emergency department. The patient's tells me he last had Valium at 6 o 'clock this morning and seems to be significantly improving this afternoon. He no longer is confused and he reportedly had a normal gait prior to his arrival in the emergency department. The patient's chief complaint is 1 of severe neck and left shoulder pain. The patient reportedly has been attempting to get an MRI of this condition and is followed by Dr. Palomino from Neurosurgery. They have been trying to arrange for outpatient MRI under conscious sedation. The patient denies any fever, he does report a chronic cough. He denies any abdominal pain, vomiting or diarrhea. Aside from Valium he has not been on a new medication. The patient reportedly has been attempting to start Lyrica but this has been delayed secondary to insurance issues. REVIEW OF SYSTEM: A comprehensive 10 point review of systems is otherwise negative aside from elements mentioned in the history of present illness. Source: Patient Exam Limitations: No limitations - Personal History Current Tetanus Diphtheria and Acellular Pertussis (TDAP): Yes - Medical/Surgical History Hx Asthma: Yes Hx Chronic Respiratory Disease: No Hx Diabetes: Yes Hx Cardiac Disease: No Hx Renal Disease: No Hx Cirrhosis: No Hx Alcoholism: No Hx HIV/AIDS: No Hx Splenectomy or Spleen Trauma: No Other PMH: gout, asthma, anxiety, GERD, lumbar stenosis, 5 back surgeries, chronic back pain - Social History Smoking Status: Former smoker - Physical Exam Exam: General Appearance: Alert, no distress Eyes: Pupils equal and round no pallor or injection ENT, Mouth: Mucous membranes moist Respiratory: There are no retractions, lungs are clear to auscultation Cardiovascular: Regular rate and rhythm Gastrointestinal: Abdomen is soft and nontender, no masses, bowel sounds normal Neurological: A&O, normal motor function, normal sensory exam, normal cranial nerves Skin: Warm and dry, no rashes Musculoskeletal: Tenderness to palpation along the lateral cervical spine into the trapezius muscle predominantly in the left shoulder region Extremities: symmetrical, full range of motion Psychiatric: Patient is oriented X 3, there is no agitation Constitutional: Initial Vital Signs Temperature (C) 36.7 C 12/21/17 18:17 Heart Rate 100 12/21/17 18:17 Respiratory Rate 18 12/21/17 18:17 Blood Pressure 130/81 H 12/21/17 18:17 O2 Sat (%) 95 12/21/17 18:17 O2 Delivery Mode Nasal Cannula O2 (L/minute) 2 Allergies/Adverse Reactions: Sulfa (Sulfonamide Antibiotics) Allergy (Mild, Verified 12/21/17 18:16) Congestion sildenafil [From Viagra] Allergy (Verified 12/21/17 18:16) nasal and throat congestion tadalafil [From Cialis] Allergy (Verified 12/21/17 18:16) nasal and throat congestion Home Medications: Medication Instructions Recorded Allopurinol [Allopurinol 300 MG 300 mg PO DAILY 06/05/17 (RX)] Cetirizine [ZyrTEC 10 mg (*)] 10 mg PO DAILY 06/05/17 Ranitidine HCl [Zantac] 150 mg PO DAILY PRN 06/05/17 Ipratropium/Albuterol [Duoneb (*)] 3 ml IH TID PRN 06/06/17 Propylene Glycol/Peg 400/Pf 1 each OP DAILY PRN 06/06/17 [Systane 0.3-0.4% Eye Drops] predniSONE [Prednisone] 10 mg PO DAILY 06/06/17 Fluticasone/Salmeter 250/50Mcg 1 puffs IH BID 10/28/17 [Advair 250/50 (*)] Gabapentin [Neurontin 300 MG (*)] 300 mg PO BID 10/28/17 Metoprolol Succinate Xr [Toprol Xl 25 mg PO DAILY 10/28/17 25 mg (*)] guaiFENesin [Mucinex 600 MG (*)] 600 mg PO BID 10/28/17 metFORMIN HCL [Glucophage 500 mg 500 mg PO BIDMEAL 10/28/17 (*)] Acetaminophen [Tylenol ES 500 mg 1,000 mg PO Q8HRS tab 11/02/17 (*)] Hydrocodone/APAP 5/325 [[place] 1 - 2 tab PO Q4HRS PRN #30 tab 11/02/17 5/325 (*)] Methocarbamol [Robaxin 750 mg (*)] 750 mg PO TID PRN #30 tab 11/02/17 Medical Decision Making ED Course/Re-evaluation: The patient received an IV and was given 1 mg of IV Dilaudid for shoulder pain. He presents to the ED with confusion, difficulty weekend and somnolence likely related to his recent initiation of Valium. The patient is noted to be neurologically intact. I do feel that the patient should be admitted to the hospital to facilitate his MRI under conscious sedation and to ensure that there is no evidence of recurrence acute confusion. I discussed the case with Dr. Guillory from the hospitalist service. I spoke with Dr. Wes Shepherd from Neurosurgery at 8:00 p.m.. He will notify the patient's primary neurosurgeon Dr. Betito Palomino is admission to the hospital. Differential Diagnosis: Differential diagnosis considered includes medication side effect, urinary tract infection, pneumonia, cervical radiculopathy - Data Points Medications Given: Discontinued Medications Hydromorphone HCl (Dilaudid) 1 mg IVP EDNOW ONE Stop: 12/21/17 19:11 Last Admin: 12/21/17 19:22 Dose: 1 mg Departure - Departure Disposition: [facility] Inpatient Acute Clinical Impression: Cervical pain (neck), Medication side effect Condition: Good Referrals: EMMANUEL CALVILLO [Other] - As per Instructions
[2017-12-21] MEDS ORDERED: HYDROmorphONE/DILAUDID 1 MG/ML INJ IVP ONE (19:10)
[2017-12-21] MEDS ORDERED: ONDANSETRON 4 MG/2 ML VIAL IVP PRN (19:40)
[2017-12-21] MEDS ORDERED: ACETAMINOPHEN 325 MG TAB PO PRN (19:40)
[2017-12-21] MEDS ORDERED: ONDANSETRON DISINTEGRATING 4 MG TAB PO PRN (19:40)
[2017-12-21] MEDS ORDERED: NS 1,000 ML IV SCH (19:45)
[2017-12-21] MEDS ORDERED: IPRATROPIUM/ALBUTEROL 3 ML DEYVIAL IH PRN (21:48)
[2017-12-21] MEDS ORDERED: SYSTANE EYE OP PRN (21:48)
[2017-12-21] MEDS ORDERED: D50W 25 GM/50 ML SYR IVP PRN (21:57)
[2017-12-21] MEDS ORDERED: OMEGA-3 FATTY ACIDS 1,000 MG CAP PO SCH (22:00)
[2017-12-21] MEDS ORDERED: METOPROLOL SUCCINATE XR 25 MG TAB PO SCH (22:15)
--- NOTE | 2017-12-21 22:30 | GHP ---
[f rep st] HISTORY AND PHYSICAL DATE OF ADMISSION: 12/21/2017 CHIEF COMPLAINT: Neck and left shoulder pain. HISTORY OF PRESENT ILLNESS: A 77-year-old male with a history of diabetes and asthma, who underwent recent C4-5 anterior cervical diskectomy and fusion, who re-presents with progressive pain over the c ourse of the preceding 3 weeks. The patient reports having marked improvement of his symptoms immedi ately postsurgical, returning home, and in the 1st week post recovery, being rehospitalized with acut e pneumonia. The patient reports that he barely recovered from the pneumonia when he started having progressive recurrent pain of his neck, his left shoulder, left arm, and then progressive weakness of the left upper extremity. He was initiated in the outpatient setting on Valium, which made him very confused and unstable in his gait. He presented to the [place] emergency room today with these s ymptoms and was transferred down to [facility] for further evaluation. Upon arrival to [facility], his mental status had cleared as he had been approximately 12 hours away from his last Valium dose. Stability had improved in his lower extremities. He report s overall weakness which has been since his postsurgical time, with profound pain of the left upper e xtremity and dissymmetry in his strength, left markedly less than the right in his upper extremities. The patient denies any chest pain, denies shortness of breath. His asthma has been stable on his h ome medications. Denies any nausea, vomiting. Denies bowel changes. Denies dysuria, hematuria, quyen hes, or recent sick contacts. PAST MEDICAL HISTORY: 1. C4-5 anterior cervical diskectomy and fusion. 2. Diabetes. 3. Asthma. 4. Chronic sinusitis. 5. Recent pneumonia. SOCIAL HISTORY: Patient lives with his in [facility]. Drinks a glass of red wine at night. Denies illicit drugs or marijuana. ADVANCED DIRECTIVES: Patient is full cor, full tube. His would be his medical decision-maker. REVIEW OF SYSTEMS: A 10-point review of systems is negative with the exception of that reported in t he HPI. PHYSICAL EXAMINATION: VITAL SIGNS: Blood pressure 154/72, heart rate 88, respiratory rate 16, 95% o n 2 L, 36.9. GENERAL: This is a pleasant elderly male, sitting up in bed. HEENT: Notable for mois t mucous membranes. Eye exam is negative for any icterus. CARDIAC: Patient is regular rate and rhy thm. PULMONARY: Clear to auscultation bilaterally. GASTROINTESTINAL: Positive bowel sounds. Abdo men is soft and nontender. MUSCULOSKELETAL: Negative for any lower extremity edema. SKIN: Negativ e for any rashes. NEUROLOGIC: Patient's strength is 5/5 bilaterally of the lower extremities. Uppe r extremity strength is 3/5 on the left, 5/5 on the right. Sensation is intact throughout. Gait was not examined. PSYCHIATRIC: He is pleasant and cooperative on interview and examination. DATA: Telemetry, which I personally reviewed and interpreted, shows sinus rhythm. Laboratory: Hemoglobin A1c was 8.6, last checked. ASSESSMENT AND PLAN: This is a 77-year-old male presenting with progressive symptoms of the left upp er extremity. 1. Cervical spine disease. The patient is status post fusion with progressive postoperative symptom s. They have been attempting to obtain imaging in the outpatient setting and have been unsuccessful as they needed anesthesia. We will admit the patient. I have coordinated with [facility] an d OR nurse for tentative scheduling of cervical MRI with anesthesia tomorrow morning. Patient is n.p .o. in anticipation of this. We will continue p.r.n. pain control with intravenous Dilaudid, holding Valium at this time secondary to his side effects in the outpatient setting. 2. Asthma. The patient's lung exam is clear. We will continue his inhaled outpatient medications. 3. Diabetes. Can cover the patient with sliding scale insulin. We will hold his oral metformin dur ing the inpatient stay. 4. Hypertension. Will continue patient's outpatient metoprolol dosing. 5. Prophylaxis with Lovenox. 6. Diet: Regular, n.p.o. after midnight. DISPOSITION: Expecting greater than 2 midnights, as the patient is presenting with progressive sympt oms requiring additional diagnostics and neurosurgical consultation. I have discussed the case with the emergency room physician. Patient will be triaged to the medical-surgical floor for care. Dr. Lina rosenthal was consulted, Neurosurgery from the emergency department. Dr. Palomino will be notified of the p giovanni's acute hospitalization. /[id number]/MODL
[2017-12-22 05:01] LABS: PLATELET COUNT 367 10^3/uL (150-400)
[2017-12-22] MEDS ORDERED: PROPOFOL/EMULSION 500 MG/50 ML BOTTLE IV ONE (07:55)
[2017-12-22] MEDS ORDERED: ROCURONIUM 100 MG/10 ML VIAL ONE (08:01)
[2017-12-22] MEDS ORDERED: SUCCINYLCHOLINE CHLORIDE 200 MG/10 ML VIAL ONE (08:01)
--- NOTE | 2017-12-22 08:12 | GCON ---
[f rep st] CONSULTATION DATE OF CONSULTATION: 12/22/2017 TIME SEEN: 7:00 a.m. CHIEF COMPLAINT: Neck and left shoulder pain. HISTORY OF PRESENT ILLNESS: The patient is a 77-year-old male with a history of diabetes and asthma, who underwent a recent ACDF at C4-5. He presented to the hospital with progression of pain for the last 3 weeks. The patient describes as of admission, horrible neck pain and left shoulder pain. It radiates down to the upper deltoid on the left side. He denies any right upper extremity complaints. He denies any numbness, tingling, or weakness in the upper extremities except with his left deltoid . The patient had reported having marked improvement immediately after surgery. He was returning ho il and was in the rehab process. The patient did have an issue where he was rehospitalized with acut e pneumonia. The patient reported back to the hospital, reporting that he barely recovered from the pneumonia when he started to have progression of recurrent pain in the neck and left shoulder. He st ates he is much better today with pain management that he has been receiving. He was going to be sta rted on outpatient Lyrica by MARCO Funk with our practice. An MRI of the cervical spine was also ordered, but he was unable to tolerate it. We will reorder it on his inpatient stay at this [facility]. He denies any loss of bowel or bladder control. No gait disturbance. The patient denies any jos[address] an[address] pain, shortness of breath. No abdominal complaints. His asthma has been stable on home medicatio n. Denies any nausea, vomiting, or diarrhea. Denies any changes in his bowels. Denies any dysuria, hematuria. PAST MEDICAL HISTORY/SURGICAL HISTORY: Consists of the followin. C4-5 ACDF in October of 2017. 2. Diabetes. 3. Asthma. 4. Chronic sinusitis. 5. Recent pneumonia. 6. Lumbar spine surgery in February 2017. MEDICATIONS: Please see admission med rec form. ALLERGIES: Sulfa, Viagra and Cialis. SOCIAL HISTORY: Patient lives with his in [facility]. He drinks a glass of red wine at night. Andreas es any illicit drug use or marijuana use. IMMUNIZATIONS: Were up to date. TRAVEL: No recent travel. REVIEW OF SYSTEMS: A complete 10-point review of systems is negative, otherwise noted in HPI. PHYSICAL EXAMINATION: GENERAL: This is an awake, alert, oriented male, in no acute distress. VITAL SIGNS: Blood pressure 122/63, MAP of 82, 73 heart rate, 16 respirations, 95% on 2 L, temperature 36 .8. HEENT: Head is normocephalic, atraumatic. Pupils are equal, round, reactive to light. EOMI is intact full visual arreaga by confrontation. Ears are patent. Nose is patent. NECK: Soft and supp le. No induration or hematoma noted. Incision is healing well. RESPIRATORY/CARDIAC: Deferred. ABDOMEN: Soft, nontender. No peritoneal signs. AND RECTAL: De ferred. NEURO: Patient is awake, alert, oriented to name, place, location, date, time, and situatio n. Memory is intact to immediate, past, and current events. Speech: No aphasia, dysarthria, dyspho kya. Cranial nerves 2-12 grossly intact. Motor: Patient has 5/5 strength in all muscle groups of b ilateral upper and lower extremities to include deltoids, biceps, triceps, brachioradialis, wrist fle xion, extensors, it help desk manager intrinsic fingers, iliopsoas, quadriceps, hamstring, plantar flexion, dorsiflex ion, EHL testing with the exception of left deltoid at 4+/5. Otherwise, 5/5 bilaterally in upper and lower extremities. Sensation is grossly intact to light touch throughout all dermatome distribution s of lower extremities. Negative straight leg raise. Negative NICOLETTE test, reflexes of biceps, piper ps, brachioradialis, knee jerk and ankle jerk are 2+/4. Toes downgoing bilaterally. Baker's and B abinski negative nodes clonus. DIAGNOSTIC STUDIES: Laboratory tests obtained 12/22/2017, shows an H and H 12.7 and 38.7 with a plat elet count of 367. Chemistry on 12/22/2017: Sodium 144, potassium 4.2, chloride 109, CO2 28, BUN 16 , creatinine 0.7, and glucose of 82. Urine on 12/22/2017 shows no RBCs, 1-3 WBCs, otherwise normal. MRI of the cervical spine with and without contrast pending. X-rays of the cervical spine with flexion-extension views ordered. IMPRESSION: 1. Status post cervical ACDF, C4-[address] Niko Palomino October 2017. 2. History of lumbar spine fusion and decompression in February [address] Niko Palomino. 3. Cervicalgia with left arm pain and left deltoid weakness. 4. History of diabetes, asthma, chronic sinusitis, and recent pneumonia. PLAN/DISCUSSION: The patient is a 77-year-old male who was admitted to the Internal Medicine service and we were consulted for some exacerbation of neck pain and left shoulder pain. He has been workin g with Dr. Palomino's team and spoke with MARCO Meza with our practice, who ordered Lyrica for him. She also ordered an outpatient MRI of the cervical spine. Patient had worsening symptoms a s well as recent pneumonia and other medical issues and was admitted to the medicine service and we w ere consulted to evaluate his neck issues. He is better this a.m. An MRI is ordered. Dr. Zoltan amezcua see, evaluate the patient this morning. Dr. Palomino, his primary neurosurgeon will review his imagin g later this afternoon and develop a plan accordingly. All questions and concerns were answered. Marco meade understands and agrees. /[id number]/MODL
[2017-12-22] MEDS ORDERED: NALOXONE HCL 0.4 MG/ML INJ ONE (08:21)
[2017-12-22] MEDS ORDERED: fentaNYL 100 MCG/2 ML INJ ONE (08:22)
[2017-12-22] MEDS ORDERED: GADOBUTROL 10 ML VIAL IVP ONE (08:30)
[2017-12-22] MEDS ORDERED: DULoxetine 30 MG CAP PO SCH (09:00)
[2017-12-22] MEDS ORDERED: ALLOPURINOL 300 MG TAB PO SCH (09:00)
[2017-12-22] MEDS ORDERED: guaiFENesin 600 MG TAB.ER PO SCH (09:00)
[2017-12-22] MEDS ORDERED: FLUTICASONE/SALMETER 250/50MCG DISKUS IH SCH (09:00)
[2017-12-22] MEDS ORDERED: FAMOTIDINE 20 MG TAB PO SCH (09:00)
[2017-12-22] MEDS ORDERED: ENOXAPARIN 40 MG/0.4 ML SYR SC SCH (09:00)
[2017-12-22] MEDS ORDERED: CETIRIZINE 10 MG TAB PO SCH (09:00)
[2017-12-22] MEDS ORDERED: MULTIVITAMINS 1 EACH TAB PO SCH (09:00)
--- NOTE | 2017-12-22 09:15 | HOSPPROG ---
Hospitalist Progress Note Assessment/Plan: Patient is a 69-year-old male who underwent a C4-5 anterior cervical diskectomy fusion. He presented with progressive pain over the course in the preceding 3 weeks. He had improvement of his symptoms immediately postsurgical but then was rehospitalized with acute pneumonia. He was getting over the pneumonia when he started having progressive pain in his neck and left shoulder left arm and progressive weakness in his left lower extremity. Today is my 1st encounter with the patient. Chart reviewed. * neck pain with associated left shoulder pain -appreciate neurosurgical consult. An MRI has been ordered -history of C4-5 anterior cervical diskectomy and fusion * asthma -stable * nightly glass of wine -ordered this for dinner daily * hypertension -stable *Diabetes -on metformin (on HOLD) -will check glucoses, not on sliding scale, morning glucose stable *Plan: will await further input from surgical team, patient wants his pain addressed, is anxious to go home. He wants to avoid narcotics. Subjective: Chavo is c/o pain in his neck area that radiates towards his shoulder area. Objective: Vital Signs Temp Pulse Resp BP Pulse Ox 98.2 C H 73 13 128/84 H 96 12/22/17 08:01 12/22/17 08:01 12/22/17 08:01 12/22/17 08:01 12/22/17 08:01 Laboratory Results 12/22/17 04:48 12/22/17 04:48 12/21/17 12/22/17 12/23/17 05:59 05:59 05:59 Output Total 550 Balance -550 - Physical Exam Constitutional: uncomfortable, No not in pain Eyes: PERRL Ears, Nose, Mouth, Throat: hearing normal Cardiovascular: regular rate and rhythym Respiratory: no respiratory distress Gastrointestinal: normoactive bowel sounds Skin: warm Musculoskeletal: full muscle strength, other (left side of trapezius area very tight and firm. ) Neurologic: AAOx3 Psychiatric: interacting appropriately ICD10 Worksheet Patient Problems: Problems Problem Status Onset Cervical pain (neck) Acute Medication side effect Acute Other spondylosis with radiculopathy, lumbar region Acute Other spondylosis with radiculopathy, lumbar region Acute Pain Acute Pain Acute
--- NOTE | 2017-12-22 11:03 | PDMN ---
Medical Necessity Medical necessity: Pt meets IP criteria per MD; est los >2 mn for eval/tx of cervical spine disease s/p C4-5 ACDF w/progressive postop neck & shoulder pain & LLE weakness requiring additional diagnostics, Neurosurgical consult, IVFs, IV pain meds ; hx recent pneumonia htn, diabetes, asthma; per H&P & order
[2017-12-22] MEDS: HYDROCODONE/APAP 5/325 TAB PO PRN ×2 (11:43→17:52)
[2017-12-22] MEDS: HYDROmorphONE/DILAUDID 1 MG/ML INJ IVP PRN ×2 (11:44→17:51)
[2017-12-22] MEDS: INSULIN LISPRO 100 UNIT/ML SC SCH ×2 (11:48→13:30)
[2017-12-22 15:27] VITALS: BP 98/69; PULSE 86; RESP 16; TEMP 97.8; O2SAT 96
--- NOTE | 2017-12-22 15:48 | ASMTCASEMG ---
Living Arrangements What is your living Answers: With Spouse arrangement? Who do you live with? Type Of Residence What kind of residence do Answers: House you live in? Discharge Plan Comments Coordination Status Comments Notes: Pt is a 77 y/o man admitted for neck and shoulder pain. Pt underwent a c4-5 anterior cervical diskectomy fusion. Therapies have been ordered and awaiting recommendations. Needs are TBD at this time. CM to follow. Plan: TBD Date Signed: 12/22/2017 03:47 PM Electronically Signed By:KAYLIN Deleon
[2017-12-22] MEDS ORDERED: RED WINE 120 ML BOTTLE PO SCH (18:00)
--- NOTE | 2017-12-23 05:56 | GDS ---
[f rep st] DISCHARGE SUMMARY DISCHARGE DIAGNOSES: 1. Neck pain with associated left shoulder pain. 2. Asthma. 3. Nightly glass of wine. 4. Hypertension. 5. Diabetes. HISTORY OF PRESENT ILLNESS: The patient is a 77-year-old male who underwent a C4-5 anterior cervical diskectomy, fusion. He presented with progressive pain over the course of the preceding 3 weeks. He had surgery and had immediate relief, but then was rehospitalized with acute pneumonia. When he was getting over the pneumonia, he started having progressive pain in his neck and left shoulder area and arm. He returned to the hospital due to progressing pain. He was seen and evaluated by Neurosurgery. Their recommendation was for a brace. But, the patient decided to leave this evening against medical advice. He left prior to a brace being made for him. I was unable to give him any type of discharge instructions. /[id number]/MODL MTDD
--- NOTE | 2017-12-23 07:16 | SOAPPROG ---
[facility] Progress Note Assessment/Plan: Late entry: I was informed this am prior to rounds that Mr Gardner left AMA last night. I spoke with the RN last night and she let him know that we wanted to have him stay one more night to ensure his pain was well controlled and that we would go over his images with him in the am. I was prepared with his images to review with him this am. He has some settling of the plate on xrays and known adjacent segment stenosis on his MRI. He left prior to my review with him this am. We recommended a collar for him and he refused it. I spoke with Dr Palomino this am and his team will try and touch base with him. 12/23/17 07:12 Objective: Vital Signs Temp Pulse Resp BP Pulse Ox 36.6 C 86 16 98/69 L 96 12/22/17 15:25 12/22/17 15:25 12/22/17 15:25 12/22/17 15:25 12/22/17 15:25 Laboratory Results 12/22/17 04:48 12/22/17 04:48 12/22/17 12/23/17 12/24/17 05:59 05:59 05:59 Intake Total 1600 Output Total 550 450 Balance -550 1150 ICD10 Worksheet Patient Problems: Problems Problem Status Onset Cervical pain (neck) Acute Medication side effect Acute Other spondylosis with radiculopathy, lumbar region Acute Other spondylosis with radiculopathy, lumbar region Acute Pain Acute Pain Acute
--- NOTE | 2017-12-23 11:06 | ASDISCHSUM ---
Discharge Information Plan Status:Has needs-TBD Medically Cleared to Leave: Discharge Date:12/22/2017 06:03 PM CM D/C Disposition:Against Medical Advice ADT D/C Disposition:Against Medical Advice Projected Discharge Date:12/22/2017 06:03 PM Transportation at D/C: Discharge Delay Reason: Follow-Up Date:12/22/2017 06:03 PM Discharge Slot: Final Diagnosis: Placement Information Patient Contact Information Contact Name:DEBORAH Relationship: Address:[address] [place] [address] Work Phone: City:[facility] Phone: State/Zip Code:[place] [address] Email: Financial Information Financial Class: Primary Plan Desc:MEDICARE INPATIENT Primary Plan Number:[id number] Secondary Plan Desc:BRIGIDO SYBIL HANNAH Secondary Plan Number:[id number] Assessment Information [facility] Initial CM Assessment Living Arrangements What is your living Answers: With Spouse arrangement? Who do you live with? Type Of Residence What kind of residence do Answers: House you live in? Discharge Plan Comments Coordination Status Comments Notes: Pt is a 77 y/o man admitted for neck and shoulder pain. Pt underwent a c4-5 anterior cervical diskectomy fusion. Therapies have been ordered and awaiting recommendations. Needs are TBD at this time. CM to follow. Plan: TBD Date Signed: 12/22/2017 03:47 PM Electronically Signed By:KAYLIN Deleon Intervention Information
== END 2017-12-22 18:03 | disposition left against medical advice (07) | DRG 552 ==
LOC: F3N 21:04
PROVIDERS: ADMIT Hospitalist; ATTEND Hospitalist
DX: M54.2 Cervicalgia (principal); M25.512 Pain in left shoulder; J45.909 Unspecified asthma, uncomplicated; E11.9 Type 2 diabetes mellitus without complications; I10 Essential (primary) hypertension; M10.9 Gout, unspecified; K21.9 Gastro-esophageal reflux disease without esophagitis; Z98.1 Arthrodesis status; Z79.84 Long term (current) use of oral hypoglycemic drugs; Z87.891 Personal history of nicotine dependence
CPT/HCPCS: 96374; A9585; J0330; J1170; J1650; J2310; J2704; J3010

== ENCOUNTER 2018-11-25 00:39 | Inpatient (IN) | payer OTHER ==
[2018-11-25] MEDS ORDERED: NS 1,000 ML IV ONE (00:52)
--- NOTE | 2018-11-25 00:55 | EDPHY ---
H & P Time Seen by Provider: 11/25/18 00:55 HPI/ROS: HPI CHIEF COMPLAINT: Low Back Pain HISTORY OF PRESENT ILLNESS: 78-year-old male, history of hypertension, diabetes , chronic neck and back pain. Has had a cervical fusion as well as a L5/S1 TLIF , has been having increasing low back pain over the past few weeks. The patient went to [facility] [place] twice over the last week for increasing low back pain. Unable to perform his ADLs. He presents emergency room tonight from [facility] [place] as a transfer to be admitted for ongoing back pain and back pain pain control. Additionally his neurosurgeon Dr. Palomino is here at this hospital. Patient denies any saddle anesthesia, denies back trauma, denies fever, denies leg weakness, denies pain going down his legs he describes the pain low back lumbar region radiates out to both sides but does not go down his gluteus her legs. Worse with movement Better with rest. Past Medical History: Hypertension, diabetes, chronic back pain Past Surgical History: Cervical fusion, lumbar fusion Social History: Denies drugs alcohol tobacco Resides in [place] Family History: Noncontributory Neurosurgeon Dr. Candelario CALVO REVIEW OF SYSTEMS: 10 Systems were reviewed and negative with the exception of the elements mentioned in the history of present illness. Exam Constitutional nontoxic no acute distress, triage nursing summary reviewed, vital signs reviewed, awake/alert. Eyes normal conjunctivae and sclera, EOMI, PERRLA. HENT normal inspection, atraumatic, moist mucus membranes, no epistaxis, neck supple/ no meningismus, no raccoon eyes. Respiratory clear to auscultation bilaterally, normal breath sounds, no respiratory distress, no wheezing. Cardiovascular rate normal, regular rhythm, no murmur, no edema, distal pulses normal. Gastrointestinal no pulsatile mass on exam no significant abdominal pain, soft , non-tender, no rebound, no guarding, normal bowel sounds, no distension, no pulsatile mass. Genitourinary no CVA tenderness. Musculoskeletal no significant midline pain, no midline vertebral tenderness, full range of motion, no calf swelling, no tenderness of extremities, no meningismus, good pulses, neurovascularly intact. Skin pink, warm, & dry, no rash, skin atraumatic. Neurologic awake, alert and oriented x 3, AAOx3, moves all 4 extremities equally, motor intact, sensory intact, CN II-XII intact, normal cerebellar, normal vision, normal speech. Psychiatric normal mood/affect. Heme/Lymph/Immune no lymphadenopathy. Differential Diagnosis: Includes but is not limited to in a particular order lumbar radiculopathy, annular tear, disc herniation nerve root compression, compression fracture, malalignment, acute on chronic back pain Medical Decision Making: Plan for this patient IV establishment with IV fluid bolus IV Dilaudid for pain control basic blood work, admit for low back pain. Re-evaluation: 0143AM: Consult hospitalist service for admission Dr. Jacob agrees to admit Admit for intractable low back pain. Consult Neurosurgery Dr. Tracey team will see the patient in the morning. X-ray of the lumbar spine reviewed extensive hardware. Source: Patient, EMS - Medical/Surgical History Hx Asthma: Yes Hx Chronic Respiratory Disease: No Hx Diabetes: Yes Hx Cardiac Disease: No Hx Renal Disease: No Hx Cirrhosis: No Hx Alcoholism: No Hx HIV/AIDS: No Hx Splenectomy or Spleen Trauma: No Other PMH: gout, asthma, anxiety, GERD, lumbar stenosis, 5 back surgeries, chronic back pain.type 2 diabetes - Social History Smoking Status: Former smoker Constitutional: Initial Vital Signs Temperature (C) 37 C 11/25/18 00:55 Heart Rate 88 11/25/18 00:55 Respiratory Rate 17 11/25/18 00:55 Blood Pressure 145/109 H 11/25/18 00:55 O2 Sat (%) 90 L 11/25/18 00:55 O2 Delivery Mode Room Air O2 (L/minute) 2 Allergies/Adverse Reactions: Sulfa (Sulfonamide Antibiotics) Allergy (Mild, Verified 12/21/17 18:16) Congestion sildenafil [From Viagra] Allergy (Verified 12/21/17 18:16) nasal and throat congestion tadalafil [From Cialis] Allergy (Verified 12/21/17 18:16) nasal and throat congestion Home Medications: Medication Instructions Recorded Ranitidine HCl [Zantac] 150 mg PO DAILY 06/05/17 Ipratropium/Albuterol [Duoneb (*)] 3 ml IH TID PRN 06/06/17 Propylene Glycol/Peg 400/Pf 1 each OP DAILY PRN 06/06/17 [Systane 0.3-0.4% Eye Drops] predniSONE [Prednisone] 20 mg PO AD 06/06/17 Fluticasone/Salmeter 250/50Mcg 1 puffs IH BID 10/28/17 [Advair 250/50 (*)] guaiFENesin [Mucinex 600 MG (*)] 600 mg PO BID 10/28/17 Multivitamins [Multivitamin (*)] 1 each PO DAILY 12/21/17 Acetaminophen [Tylenol ES 500 mg 1,000 mg PO Q8HRS PRN 11/25/18 (*)] Ascorbic Acid [Vitamin C 500 mg 500 mg PO DAILY 11/25/18 (*)] Cholecalciferol Vit D3 [Vitamin D3 1,000 units PO DAILY 11/25/18 (*)] Glucosamine/Chondroitin 1 each PO DAILY 11/25/18 [Glucosamine/Chondroitin (*)] HYDROmorphone HCL [Dilaudid 2 mg 2 - 4 mg PO Q4HRS PRN 11/25/18 (*)] LORazepam [Ativan (*)] 0.5 - 1 mg PO HS PRN 11/25/18 Medical Decision Making - Data Points Laboratory Results: Laboratory Results 11/25/18 01:35 11/25/18 01:35 Medications Given: Hydrocodone Bitart/Acetaminophen ([place] 5/325) 1 - 2 tab PO Q4HRS PRN PRN Reason: Pain, Moderate Able to Take PO Stop: 12/05/18 01:47 Last Admin: 11/25/18 08:55 Dose: 2 tab Albuterol/Ipratropium (Duoneb) 3 ml IH TID PRN PRN Reason: Short of Breath/Dyspnea Stop: 05/24/19 09:52 Last Admin: 11/25/18 20:39 Dose: 3 ml Famotidine (Pepcid) 20 mg PO BID SHARRI Stop: 05/24/19 20:59 Last Admin: 11/25/18 20:48 Dose: 20 mg Lorazepam (Ativan) 0.5 - 1 mg PO Q8HRS PRN PRN Reason: Anxiety, Able to Take PO Stop: 05/24/19 01:47 Last Admin: 11/25/18 08:55 Dose: 0.5 mg Lorazepam (Ativan) 1 mg PO DAILY SHARRI Stop: 05/24/19 09:59 Last Admin: 11/25/18 10:50 Dose: Not Given Polyethylene Glycol (Miralax) 17 gm PO DAILY PRN; Protocol PRN Reason: Constipation Stop: 05/24/19 16:19 Last Admin: 11/25/18 18:14 Dose: 17 gm Prednisone (Prednisone) 20 mg PO DAILY [facility] Stop: 05/24/19 10:14 Last Admin: 11/25/18 10:53 Dose: 20 mg Fluticasone/Salmeterol (Advair) 1 puffs IH BID SHARRI Stop: 05/24/19 09:59 Last Admin: 11/25/18 20:40 Dose: 1 puffs Senna/Docusate Sodium (Senokot-S) 1 - 2 tab PO BID SHARRI PRN Reason: Protocol Stop: 05/24/19 20:59 Last Admin: 11/25/18 20:47 Dose: Not Given Discontinued Medications Hydromorphone HCl (Dilaudid) 1 mg IVP EDNOW ONE Stop: 11/25/18 01:05 Last Admin: 11/25/18 01:50 Dose: 1 mg Hydromorphone HCl (Dilaudid) 1 mg IVP EDNOW ONE Stop: 11/25/18 02:42 Last Admin: 11/25/18 02:45 Dose: 1 mg Sodium Chloride (Ns) 1,000 mls @ 0 mls/hr IV EDNOW ONE; Wide Open PRN Reason: Protocol Stop: 11/25/18 00:53 Last Admin: 11/25/18 01:49 Dose: 1,000 mls Morphine Sulfate (Morphine) 1 - 2 mg IVP Q2HRS PRN PRN Reason: Pain, Breakthrough Stop: 12/05/18 01:47 Last Admin: 11/25/18 07:13 Dose: 1 mg Departure - Departure Disposition: [facility] Inpatient Acute Clinical Impression: Back pain Qualifiers: Back pain location: low back pain Chronicity: acute Back pain laterality: bilateral Sciatica presence: without sciatica Qualified Code(s): M54.5 - Low back pain Condition: Fair
[2018-11-25] MEDS ORDERED: HYDROmorphONE/DILAUDID 2 MG/ML INJ IVP ONE ×2 (01:04→02:41)
[2018-11-25 01:40] LABS: PLATELET COUNT 379 10^3/uL (150-400)
[2018-11-25] MEDS ORDERED: ONDANSETRON DISINTEGRATING 4 MG TAB PO PRN (01:48)
[2018-11-25] MEDS ORDERED: ONDANSETRON 4 MG/2 ML VIAL IVP PRN (01:48)
[2018-11-25] MEDS ORDERED: LORazepam 0.5 MG TAB PO PRN (01:48)
[2018-11-25] MEDS ORDERED: ACETAMINOPHEN 325 MG TAB PO PRN (01:48)
--- NOTE | 2018-11-25 08:40 | PDGENHP ---
History and Physical History and Physical: Chief complaint: Acute back pain History of present illness: The pt is a 78yo M who p/w progressively worsening bilateral, sharp low back pain that began about 4-5 weeks ago. 3-4 weeks prior to this, he slipped on ice and fell, resulting in sore shoulders/neck for which he got a steroid injection. In the last 2 days, the pain has been severe and nothing alleviates it. Pain is worse with any kind of movement. Patient is unable to walk because of the pain. He had seen his insurance marketing specialist Dr. Palomino about 6 days ago and was fitted with a back brace, but it has not helped at all. Patient has had to use a wheelchair in the last week because the pain is so severe. Pain does not radiate and is fairly constant within the last week. Past medical history: Diabetes/hyperglycemia when on steroids, asthma, or chronic sinusitis, pneumonia Past surgical history: C4-5 anterior cervical diskectomy and fusion Medications: Alden 10/325mg up to 8 tabs daily prn pain, Allergies: Sulfa, sildenafil, tadalafil. Social history: , lives with . Denies drugs or smoking. Former smoker. Drinks a glass of red wine a night. Family history: Healthy. Review of systems: 10 point review of systems was conducted and is negative except per HPI Physical exam: Vitals: Reviewed General: The patient is an overweight male who is A&Ox3 and in no acute distress. HEENT: normocephalic, extraocular movements intact, conjunctivae clear. Nares and oral mucosa pink and moist. Neck: trachea midline, no visible masses, no external lesions. CV: +S1/S2, reg rate and rhythm. No murmurs/rubs/gallops. Resp: unlabored breathing, lungs clear to auscultation w/o rales, rhonchi, or wheezing. Abd: soft and nondistended, bowel sounds present. Nontender to palpation throughout. Musculoskeletal: tenderness b/l lumbar paraspinal musculature. Negative straight leg test bilaterally. Neuro: cranial nerves II - XII grossly intact. Intact gross motor and sensory function. Psych: appropriate mood/affect. Skin: No rash or ecchymoses. : no suprapubic tenderness or CVA tenderness. Heme/lymph: No peripheral edema. Labs: WBC 13.66, BMP within normal limits. Other Data: Lumbar spine x-ray: Development of moderate compression fracture of T11, stable position of hardware T12 through S2. Impression and plan: Acute lumbar back pain Subacute compression fracture, T11 Chronic opioid use H/o C spine surgery H/o T/L spine surgery Constipation H/o asthma H/o steroid induced hyperglycemia -prn analgesics. -Neurosurg recs appreciated. Dr. Palomino's group. CT T/L spine pending. -Bowel protocol. -continue home meds. -Inpatient status for uncontrolled pain, requiring heavy doses of narcotic analgesic, as well as inability to ambulate and possible need for surgery. -Bowel protocol. -VTE ppx - Lovenox. -Code status - Full.
[2018-11-25] MEDS: HYDROCODONE/APAP 5/325 TAB PO PRN (08:55)
--- NOTE | 2018-11-25 09:52 | GCON ---
REASON FOR CONSULTATION: Low back pain. Irretractable. HOSPITAL COURSE/HISTORY/MAJOR MEDICAL FINDINGS: The patient is a 78-year-old gentleman who is a well known patient of [facility], having seen both Dr. Ellis and Dr. Palomino for ramya marjan in the past. He has undergone a T12 to ilium fusion and an ACDF at C4-5. He was recently seen on Thursday by Dr. Palomino's team and underwent an MRI, which demonstrated a new acute T11 compression fr acture with about 30% height loss. The patient was seen at [facility] for having low back flank pain that was excruciating. The pain has switched sides from the left to the right. Upon my examination this morning, his pain is the most acute on the right. It does not radiate down his legs. He is not complaining of any new numbness, tingling, or weakness. Denies any loss of bowel or bladder control. REVIEW OF SYSTEMS: Negative other than what is stated in the HPI. Please see pertinent negatives an d pertinent positives. PAST MEDICAL HISTORY: Significant for history of diabetes, asthma, chronic sinusitis. SOCIAL HISTORY: The patient lives in [facility] with his . He drinks a glass of wine daily. He gideon es any illicit drugs or marijuana use. ALLERGIES: Sulfa, sildenafil and tadalafil. FAMILY HISTORY: Denies any family history of diabetes or heart disease. He does have a history of c ancer within his family. HOME MEDICATIONS: Include acetaminophen, allopurinol, Zyrtec, vitamin D3, Cymbalta, and Advair Disku s. EXAM: VITALS: BP 151/89, heart rate is 86, he is 94% on 2 L nasal cannula. Temp is 36.6. GENERAL: Patient is in no acute distress. He is alert and oriented x3. He answers all questions appropriat kalee. His affect is appropriate to given situation. NEUROLOGIC: Cranial nerves 2-12 are grossly int act, EOMI and PERRLA. Patient is 5/5 and equal in his bilateral upper and bilateral lower extremitie s including his deltoids, triceps, biceps, wrist flexors, extensors, interossei, intrinsic trust mail clerk, ilio psoas, hamstrings, quadriceps, plantar flexion, dorsiflexion, EHL. He does have some tenderness over his right flank and over his right ASIS and PSIS. The patient has increased pain with internal and external rotation of his right hip. He has a positive Jeffrey's, positive compression. On his left si de he has a mild increase of pain with Jeffrey's on the left. This exam though is not consistent with Dr. Palomino's exam from earlier where the patient was having worsening pain on his left side. ASSESSMENT AND PLAN: The patient is a 78-year-old gentleman who has undergone a T12 to ilium fusion who is having right flank, right hip pain. He states that he underwent a kidney UA workup up at [facility] that was not found to be positive. He continues to have pain over his SI joint/into his hips. Given his increased pain with range of motion of the right hip, we will order some right hip x-rays . Also, given his history of prior fusion, we will order a CT scan to check for any pseudoarthrosis or hardware failure. He does have a new compression fracture up at T11, but he is not tender to this to palpation of the spine and therefore we will obtain a CT scan to further look at the bony archite cture of this area. He was seen both by myself and examined as well by Dr. Niko Palomino this morning . Copy requested to: Primary care physician /[id number]/MODL
[2018-11-25] MEDS ORDERED: PROPYLENE GLYCOL OP PRN (09:53)
[2018-11-25] MEDS ORDERED: PEG OP PRN (09:53)
[2018-11-25] MEDS ORDERED: predniSONE 10 MG TAB PO SCH (10:00)
[2018-11-25] MEDS: LORazepam 1 MG TAB PO SCH (10:50)
[2018-11-25] MEDS: predniSONE 20 MG TAB PO SCH (10:53)
[2018-11-25] MEDS: FLUTICASONE/SALMETER 250/50MCG DISKUS IH SCH ×2 (11:11→20:40)
[2018-11-25] MEDS: IPRATROPIUM/ALBUTEROL 3 ML DEYVIAL IH PRN ×2 (11:12→20:39)
[2018-11-25] MEDS: SENNOSIDES/DOCUSATE SODIUM TAB PO SCH ×2 (11:30→20:47)
[2018-11-25] MEDS ORDERED: SENNOSIDES 1 TAB PO ONE (14:38)
[2018-11-25] MEDS ORDERED: POLYETHYLENE GLYCOL 3350 17 GM PKT ONE (14:38)
--- NOTE | 2018-11-25 14:55 | ASMTCMCOM ---
CM Note CM Note Notes: Chart reviewed for discharge planning purposes. 78 year old male admitted via ED with intractable back pain. He has history of asthma, diabetes and previous back surgeries. New T-11 fracture. Further imaging studies pending. Therapies holding off for now. Currently resides in [place] with his . Needs TBD. Plan: TBD Date Signed: 11/25/2018 02:55 PM Electronically Signed By:Namrata Price RN
[2018-11-25] MEDS ORDERED: LACTULOSE 20 GM/30 ML UDCUP PO PRN (16:20)
[2018-11-25] MEDS ORDERED: BISACODYL 10 MG SUPP PR PRN (16:20)
[2018-11-25] MEDS ORDERED: MAGNESIUM HYDROXIDE 30 ML UDCUP PO PRN (16:20)
[2018-11-25] MEDS: POLYETHYLENE GLYCOL 3350 17 GM PKT PO PRN (18:14)
[2018-11-25] MEDS ORDERED: SENNOSIDES/DOCUSATE SODIUM TAB PO ONE (18:18)
[2018-11-25] MEDS: FAMOTIDINE 20 MG TAB PO SCH (20:48)
[2018-11-25] MEDS ORDERED: guaiFENesin 600 MG TAB.ER PO SCH (21:00)
--- NOTE | 2018-11-25 22:16 | PDMN ---
Medical Necessity Medical necessity: Pt meets IP criteria as of 11/25/2017 per MD and JESSICA STEVENSON- ( musculoskeletal disease GRG); est los > 2 mn for ongoing tx and management of severe back pain that is causing inability to ambulate despite OP pain management; requiring pain management, further work up, neurosurgical consultation and therapies.
[2018-11-26 05:34] LABS: PLATELET COUNT 361 10^3/uL (150-400)
[2018-11-26] MEDS: LORazepam 1 MG TAB PO SCH (08:11)
[2018-11-26] MEDS: SENNOSIDES/DOCUSATE SODIUM TAB PO SCH ×2 (08:11→21:45)
[2018-11-26] MEDS: predniSONE 20 MG TAB PO SCH (08:11)
[2018-11-26] MEDS: CHOLECALCIFEROL VIT D3 1,000 UNITS TAB PO SCH (08:11)
[2018-11-26] MEDS: MULTIVITAMINS 1 EACH TAB PO SCH (08:11)
[2018-11-26] MEDS: GLUCOSAMINE/CHONDROITIN CAP PO SCH (08:11)
[2018-11-26] MEDS: FAMOTIDINE 20 MG TAB PO SCH ×2 (08:11→21:44)
--- NOTE | 2018-11-26 08:17 | NEUSURGPN ---
Assessment/Plan: 78y/o male witj history of O45-nbsgi fusion with right>left flank/ lower back pain -CT of thoracic and lumbar spine demonstrats T11 compression fx again but his pain is not located in this area. His Hip xrays were negative. -Will query right sided SI joints as source of pain with an IR SI joint injection -Continue to optimize pain management as patient states pain ahs been better since receiving pain meds in the hospital -PT/OT as tolerated. -Please notify NS with any change in neuro/motor exam. Subjective: right sided low back pain. Objective: AxO x4 MARTINEZ x4 5/5 BUE, BLE Sensation intact to light touch to BLE positive Jeffrey on the right - Physician Discussed Patient with : [facility] Physical Exam - Vitals, I&O, Labs I and O 11/25/18 11/26/18 11/27/18 05:59 05:59 05:59 Intake Total 1480 Output Total 1600 Balance -120 Intake: Oral (ml) 1480 Output: Urine (ml) 1600 Urinal 1600 Other: Intake Quantity Yes Sufficient Vital Signs Temp Pulse Resp BP Pulse Ox 37.1 C 93 16 139/71 H 96 11/26/18 04:00 11/26/18 04:00 11/26/18 04:00 11/26/18 04:00 11/26/18 04:00 Laboratory Results 11/26/18 05:23 11/26/18 05:23 ICD10 Worksheet Patient Problems: Problems Problem Status Onset Back pain Acute Cervical pain (neck) Acute Medication side effect Acute Other spondylosis with radiculopathy, lumbar region Acute Other spondylosis with radiculopathy, lumbar region Acute Pain Acute Pain Acute
[2018-11-26] MEDS: IPRATROPIUM/ALBUTEROL 3 ML DEYVIAL IH PRN ×2 (09:21→21:38)
[2018-11-26] MEDS: FLUTICASONE/SALMETER 250/50MCG DISKUS IH SCH ×2 (09:22→21:38)
[2018-11-26] MEDS: HYDROCODONE/APAP 5/325 TAB PO PRN ×3 (09:57→16:27)
[2018-11-26] MEDS ORDERED: LIDOCAINE 1% 300 MG/30 ML SDV ONE (10:34)
[2018-11-26] MEDS ORDERED: DEPO METHYLPREDNISOLONE 40 MG/ML SDV ONE (10:34)
[2018-11-26] MEDS ORDERED: BUPIVACAINE 0.25% 30 ML SDV ONE (10:35)
[2018-11-26] MEDS: DULoxetine 30 MG CAP PO SCH (11:37)
[2018-11-26] MEDS: POLYETHYLENE GLYCOL 3350 17 GM PKT PO PRN (11:37)
[2018-11-26] MEDS: ALLOPURINOL 300 MG TAB PO SCH (11:37)
[2018-11-26] MEDS: CETIRIZINE 10 MG TAB PO SCH (11:38)
--- NOTE | 2018-11-26 15:27 | HOSPPROG ---
Hospitalist Progress Note Assessment/Plan: Acute lumbar back pain Subacute compression fracture, T11 Sclerotic bone lesions on iliac crests Chronic opioid use H/o C spine surgery H/o T/L spine surgery Constipation H/o asthma H/o steroid induced hyperglycemia -prn analgesics. -Neurosurg recs appreciated. Dr. Palomino's group. -IV steroid injection today. Observe o/n, possible DC to home tomorrow if pain improves. -Bowel protocol. -continue home meds. -Inpatient status for uncontrolled pain, requiring heavy doses of narcotic analgesic, as well as inability to ambulate and possible need for surgery. -Check PSA for sclerotic bone lesions seen on CT scan. -VTE ppx - Lovenox. -Code status - Full. ___ PE: General: The patient is a male who is alert and in no acute distress. HEENT: normocephalic, extraocular movements intact, conjunctivae clear, no lesions on face. Nares and oral mucosa pink and moist. Neck: trachea midline, no visible masses, no external lesions. Resp: unlabored breathing. Abd: soft and nondistended. Musculoskeletal: Normal gait. Neuro: cranial nerves II - XII grossly intact. Intact gross motor and sensory function. Psych: appropriate mood/affect. Skin: no pallor. Objective: Vital Signs Temp Pulse Resp BP Pulse Ox 36.7 C 93 18 123/83 H 94 11/26/18 08:00 11/26/18 09:26 11/26/18 09:26 11/26/18 08:00 11/26/18 09:26 Laboratory Results 11/26/18 05:23 11/26/18 05:23 11/25/18 11/26/18 11/27/18 05:59 05:59 05:59 Intake Total 1480 Output Total 1600 Balance -120 - Time Spent With Patient Time Spent with Patient: greater than 35 minutes Time Spent with Patient: Greater than 35 minutes spent on this patients care, greater than 50% of time spent counseling, educating, and coordinating care regarding the above mentioned plan. ICD10 Worksheet Patient Problems: Problems Problem Status Onset Back pain Acute Cervical pain (neck) Acute Medication side effect Acute Other spondylosis with radiculopathy, lumbar region Acute Other spondylosis with radiculopathy, lumbar region Acute Pain Acute Pain Acute
--- NOTE | 2018-11-26 16:25 | ASMTCMCOM ---
CM Note CM Note Notes: Spoke w/physical therapist, pt cleared for home when medically stable. He will dc home w/support of his . CM available for any changes. DC Plan: Indepndent Date Signed: 11/26/2018 04:25 PM Electronically Signed By:Nessa Singleton RN
[2018-11-26] MEDS: guaiFENesin 600 MG TAB.ER PO SCH (21:44)
[2018-11-27 07:26] VITALS: BP 126/80
[2018-11-27] MEDS: FAMOTIDINE 20 MG TAB PO SCH (07:47)
[2018-11-27] MEDS: HYDROCODONE/APAP 5/325 TAB PO PRN ×2 (07:47→10:26)
[2018-11-27] MEDS ORDERED: OMEGA-3 FATTY ACIDS 1,000 MG CAP PO SCH (08:00)
--- NOTE | 2018-11-27 08:13 | NEUSURGPN ---
Assessment/Plan: Assessment: 78 y/o male with history of P44-xdxej fusion with right>left flank and lower back pain Plan: -CT of thoracic and lumbar spine demonstrates a T11 compression fx again but his pain is not located in this area -hip xrays were negative -we ordered a right SI joint injection that was done yesterday -pt states that the pain is much better -ok from NS standpoint to dc home with follow up as scheduled on 12/03/18 -continue to optimize pain management -PT/OT -call with any questions or concerns -take medications as directed -please notify NS with any change in neuro/motor exam -dc pended-will need final approval from IM Subjective: Awake and alert. NAD. Eating/drinking and voiding. No f/c/n/v/d. No amezcua/neck/ chest/abd or gu complaints. Objective: AAO x 3, PERRLA/EOMI no droop CN 2-12 grossly intact +lt touch 5/5 BUE/BLE = Neuro Check Frequency: per routine Urinary Catheter in Place: No - Physician Discussed Patient with : [facility] Physical Exam - Vitals, I&O, Labs I and O 11/26/18 11/27/18 11/28/18 05:59 05:59 05:59 Intake Total 1480 Output Total 1600 Balance -120 Intake: Oral (ml) 1480 Output: Urine (ml) 1600 Urinal 1600 Other: Intake Quantity Yes Yes Sufficient Number of Stools Toilet 1 Vital Signs Temp Pulse Resp BP Pulse Ox 36.9 C 87 18 126/80 H 93 11/27/18 07:25 11/27/18 07:25 11/27/18 07:25 11/27/18 07:25 11/27/18 07:25 Laboratory Results 11/26/18 05:23 11/26/18 05:23 ICD10 Worksheet Patient Problems: Problems Problem Status Onset Back pain Acute Cervical pain (neck) Acute Medication side effect Acute Other spondylosis with radiculopathy, lumbar region Acute Other spondylosis with radiculopathy, lumbar region Acute Pain Acute Pain Acute
--- NOTE | 2018-11-27 08:38 | PDDCSUM ---
Discharge Summary Discharge Summary: Date of Admission: 11/25/2018 Date of Discharge: 11/27/2018 Discharge Diagnoses: Lumbar back pain, improved SI joint pain, improved Sclerotic bone lesions on iliac crests Chronic opioid use Chronic steroid use H/o C spine surgery H/o T/L spine surgery Constipation, resolved Chronic sinusitis, on steroids skilled nursing H/o asthma H/o steroid induced hyperglycemia Admission Diagnoses: Acute lumbar back pain Subacute compression fracture, T11 Chronic opioid use H/o C spine surgery H/o T/L spine surgery Constipation H/o asthma H/o steroid induced hyperglycemia Consultants: MINA Palomino. Hospital Course: The patient is a 78-year-old female who presented with progressively worsening bilateral sharp low back pain that began 4-5 weeks prior. 3-4 weeks prior to this pain beginning, he slipped on ice and fell which resulted in sore shoulder/ neck for which she had received a steroid injection. The patient had been unable to walk in the week prior to admission and became unable to move secondary to pain. He was admitted for pain control and neurosurgery was consulted. Imaging findings are noted below. It is thought that he sustained a compression fracture when he fell on ice. However, the pain the patient experienced for this hospitalization was located in the bilateral lumbar/SI area. He underwent an SI joint steroid injection which resulted in improvement of pain. He was subsequently able to walk and was discharged home to follow up with his outpatient physicians. CT scan revealed several scattered sclerotic bone lesions, which are likely benign bone islands, but metastatic disease could not be excluded. A PSA was checked and was found to be slightly elevated. Patient may follow up with his PCP for further workup of this issue. The patient was also noted to be on chronic steroids for chronic sinusitis, saying that nothing else has ever helped his sinusitis in that he has seen multiple otolaryngologists and 2 allergists, none of whom have been able to help him. He was told it is not good to be on long-term steroids and he admitted that his PCP is trying to wean him off the steroids, but he is reluctant to get off of them. This issue will be deferred to his PCP. Physical Exam: Gen: alert, oriented, in NAD, comfortable. MSK: ambulating. Condition: Stable. Discharged to: Home. Pertinent tests/labs/imaging: CT guided SI joint injections: Technically successful right sacroiliac joint steroid injection using 40 mg of Depo-Medrol. T/L spine CT w/o contrast: 1. Posterior fusion from T12 to S2 which appears intact. Lucency around the left pedicular L2 screw measures up to 2.5 mm, which is borderline. 2. T11 compression/burst fracture extending to the posterior cortex with approximately 4.7 mm of retropulsion. 3. Multilevel degenerative spondylosis of the thoracic spine with spinal canal stenosis worse at T8- T9 and T10-T11. 4. Scattered sclerotic lesions in the thoracic spine and right iliac wing, possibly bone islands but would correlate with PSA values. L spine XR: 1. Development of moderate compression fracture of T11. 2. Stable position of hardware from T12 through S2 Hip XR: No acute osseous findings. Medications: Please see med rec form. Resume home meds. Patient was given refill of [place] #40 and Senokot by his NSG PA. Special instructions: -take medications as directed -see Dr Luu team on 12/03/18 -call with any questions or concerns -pt understands and agrees. -Return to ED for worsening symptoms. Follow up: NSG - 12/03/18. PCP - 1-2 weeks. >30 minutes of total time was spent on counseling and coordination of care for this patient's discharge.
[2018-11-27] MEDS ORDERED: CALCIUM CARBONATE 500 MG TAB PO SCH (09:00)
[2018-11-27] MEDS: FLUTICASONE/SALMETER 250/50MCG DISKUS IH SCH (09:09)
--- NOTE | 2018-11-27 09:17 | ASMTDCNOTE ---
Case Management Discharge Discharge Order Complete? Answers: Yes Patient to Obtain Answers: via Family Medications Transportation Arranged Answers: Family/Friends Family Notified Answers: Yes Notes: in the room Discharge Comments Notes: Pt to discharge home independently and is comfortable with this plan. PT also recommending independent with outpatient therapy. No CM needs noted at this time. Date Signed: 11/27/2018 09:17 AM Electronically Signed By:Julia Meraz
--- NOTE | 2018-11-27 09:20 | ASMTLACE ---
LACE Length of stay for Answers: 2 days current admission Acuity / Level of Answers: Yes Care: Did the patient have an inpatient admission? Comorbidities - select Answers: Diabetes (uncontrolled or all that apply controlled) Opioid dependence / Chronic pain Other Notes: HTN, thoracic compressi on fracture # of Emergency department Answers: 1-2 visits in the last 6 months Score: 12 Date Signed: 11/27/2018 09:19 AM Electronically Signed By:Julia Meraz
[2018-11-27] MEDS: CETIRIZINE 10 MG TAB PO SCH (09:27)
[2018-11-27] MEDS: DULoxetine 30 MG CAP PO SCH (09:27)
[2018-11-27] MEDS: MULTIVITAMINS 1 EACH TAB PO SCH (09:27)
[2018-11-27] MEDS: guaiFENesin 600 MG TAB.ER PO SCH (09:27)
[2018-11-27] MEDS: ALLOPURINOL 300 MG TAB PO SCH (09:27)
[2018-11-27] MEDS: GLUCOSAMINE/CHONDROITIN CAP PO SCH (09:27)
[2018-11-27] MEDS: CHOLECALCIFEROL VIT D3 1,000 UNITS TAB PO SCH (09:27)
[2018-11-27] MEDS: predniSONE 20 MG TAB PO SCH (09:28)
[2018-11-27] MEDS: LORazepam 1 MG TAB PO SCH ×2 (09:28→10:05)
[2018-11-27] MEDS: SENNOSIDES/DOCUSATE SODIUM TAB PO SCH (09:29)
--- NOTE | 2018-11-27 09:31 | ASDISCHSUM ---
Discharge Information Plan Status:Home with No Needs Medically Cleared to Leave:11/26/2018 Discharge Date:11/26/2018 CM D/C Disposition:Home, Routine, Self-Care ADT D/C Disposition:Home, Routine, Self-Care Projected Discharge Date:11/26/2018 Transportation at D/C:Family Discharge Delay Reason: Follow-Up Date:11/26/2018 Discharge Slot: Final Diagnosis:subacute compression fracture T-11, low back pain Placement Information Patient Contact Information Contact Name:DEBORAH Relationship: Address:[address] [place] [address] Work Phone: City:[place] Alternate Phone: State/Zip Code:[place] [address] Email: Financial Information Financial Class:Medicare Primary Plan Desc:MEDICARE INPATIENT Primary Plan Number:[id number] Secondary Plan Desc:BRIGIDO HANNAH Secondary Plan Number:[id number] Assessment Information LACE LACE Length of stay for Answers: 2 days current admission Acuity / Level of Answers: Yes Care: Did the patient have an inpatient admission? Comorbidities - select Answers: Diabetes (uncontrolled or all that apply controlled) Opioid dependence / Chronic pain Other Notes: HTN, thoracic compressi on fracture # of Emergency department Answers: 1-2 visits in the last 6 months Score: 12 Date Signed: 11/27/2018 09:19 AM Electronically Signed By:Julia Meraz [facility] CM Progress Note CM Note CM Note Notes: Chart reviewed for discharge planning purposes. 78 year old male admitted via ED with intractable back pain. He has history of asthma, diabetes and previous back surgeries. New T-11 fracture. Further imaging studies pending. Therapies holding off for now. Currently resides in [place] with his . Needs TBD. Plan: TBD Date Signed: 11/25/2018 02:55 PM Electronically Signed By:Namrata Price RN [facility] CM Progress Note CM Note CM Note Notes: Spoke w/physical therapist, pt cleared for home when medically stable. He will dc home w/support of his . CM available for any changes. DC Plan: Indepndent Date Signed: 11/26/2018 04:25 PM Electronically Signed By:Nessa Singleton RN Case Management Discharge Plan Note Case Management Discharge Discharge Order Complete? Answers: Yes Patient to Obtain Answers: via Family Medications Transportation Arranged Answers: Family/Friends Family Notified Answers: Yes Notes: in the room Discharge Comments Notes: Pt to discharge home independently and is comfortable with this plan. PT also recommending independent with outpatient therapy. No CM needs noted at this time. 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
== END 2018-11-27 10:25 | disposition home or self-care (01) | DRG 552 ==
LOC: EDUNIT# → F3E 02:50 → OBSVTOIN 09:53
PROVIDERS: ADMIT Family Medicine; ATTEND Family Medicine
PROC: 3E0U3NZ Introduction of Analgesics, Hypnotics, Sedatives into Joints, Percutaneous Approach (ICD-10-PCS; principal; 2018-11-26)
DX: M53.3 Sacrococcygeal disorders, not elsewhere classified (principal); M54.5 Low back pain; J32.9 Chronic sinusitis, unspecified; I10 Essential (primary) hypertension; E11.9 Type 2 diabetes mellitus without complications; M10.9 Gout, unspecified; J45.909 Unspecified asthma, uncomplicated; K21.9 Gastro-esophageal reflux disease without esophagitis; K59.00 Constipation, unspecified; Z98.1 Arthrodesis status; Z79.52 Long term (current) use of systemic steroids
CPT/HCPCS: 96374; 97161-GP; 97165-GO; J1030; J1170; J2270; J7512

== ENCOUNTER 2018-12-17 09:30 | Inpatient (IN) | payer OTHER ==
--- NOTE | 2018-12-17 10:03 | EDPHY ---
H & P Time Seen by Provider: 12/17/18 10:03 HPI/ROS: CHIEF COMPLAINT: Severe low back pain HISTORY OF PRESENT ILLNESS: Patient is history of 7 previous spine surgeries and was sent to us from [facility] for intractable back pain. Been getting worse over the past week or 2. Lower back and not associated with weakness or numbness of extremities or incontinence. Mostly in his right side of his back to his right hip and down his proximal leg. Worse with movement, better lying flat. Not better with taking 10 mg Vanderpool at home every 4 hr. REVIEW OF SYSTEMS: Eye: no change in vision ENT: no sore throat Cardiac: no chest pain or syncope Pulmonary: no cough or SOB Abdomen: no vomiting, diarrhea, abdominal pain Musculoskeletal: HPI Skin: no rash Neuro: no headache Constitutional: no fever : no urinary symptoms A comprehensive 10 point review of systems is otherwise negative aside from elements mentioned in the history of present illness. PAST MEDICAL HISTORY: Includes gout, asthma, anxiety, spinal stenosis with previous spine surgeries, chronic back pain, diabetes. Social history: Primary care is [place] Temperature 37.1 degrees taken personally by myself. General Appearance: Alert and conversant, cooperative. Eyes: No scleral icterus. ENT, Mouth: Normal mucous membranes. Respiratory: Normal respiratory effort, breath sounds equal, lungs are clear to auscultation. Cardiovascular: Regular rate and rhythm. Gastrointestinal: Abdomen is soft and non tender. Neurological: Alert, face symmetric, normal motor and sensory in extremities. Toes downgoing bilaterally, patellar reflexes 1+ bilateral, no clonus. Skin: Warm and dry, no rashes. Posterior lumbar spine incisions clean dry and intact. Musculoskeletal: No peripheral edema. Psychiatric: Not agitated. Emergency Department course/MDM: Dilaudid 1 mg IV, lidocaine patches, admission to hospitalist for pain control with neurosurgical consultation. At this point I have low likelihood suspicion for cauda equina, spine fracture, epidural abscess or myelitis. 1135: Additional 1 mg IV Dilaudid for pain. 1233: Seen by Dr. Ellis, recommends admission for pain control and plan for pain control as an outpatient, he will schedule him for surgery in 3 weeks. Lumbar spine x-rays ordered at his request to check for hardware. He does not recommend repeating CT or MRI. Smoking Status: Former smoker Constitutional: Initial Vital Signs Temperature (C) 36.7 C 12/17/18 09:35 Heart Rate 86 12/17/18 09:35 Respiratory Rate 18 12/17/18 09:35 Blood Pressure 196/104 H 12/17/18 09:35 O2 Sat (%) 96 12/17/18 09:35 O2 Delivery Mode Room Air O2 (L/minute) 2 Allergies/Adverse Reactions: Sulfa (Sulfonamide Antibiotics) Allergy (Mild, Verified 12/17/18 09:33) Congestion sildenafil [From Viagra] Allergy (Verified 12/17/18 09:33) nasal and throat congestion tadalafil [From Cialis] Allergy (Verified 12/17/18 09:33) nasal and throat congestion Home Medications: Medication Instructions Recorded Ranitidine HCl [Zantac] 150 mg PO DAILY 06/05/17 Ipratropium/Albuterol [Duoneb (*)] 3 ml IH TID PRN 06/06/17 Propylene Glycol/Peg 400/Pf 1 each OP DAILY PRN 06/06/17 [Systane 0.3-0.4% Eye Drops] Fluticasone/Salmeter 250/50Mcg 1 puffs IH BID 10/28/17 [Advair 250/50 (*)] Multivitamins [Multivitamin (*)] 1 each PO DAILY 12/21/17 Glucosamine/Chondroitin 1 each PO DAILY 11/25/18 [Glucosamine/Chondroitin (*)] LORazepam [Ativan (*)] 0.5 - 1 mg PO HS PRN 11/25/18 Allopurinol [Allopurinol 300 MG 300 mg PO DAILY 11/26/18 (RX)] Calcium Carbonate [Oyster Shell 500 mg PO HS 11/26/18 Calcium 500 mg (*)] Cetirizine [ZyrTEC 10 mg (*)] 10 mg PO DAILY 11/26/18 Duloxetine HCl [Cymbalta] 30 mg PO DAILY 11/26/18 Herbals/Supplements -Info Only 1 ea PO AD 11/26/18 [place]-3 Fatty Acids [Fish Oil 1000 1,000 mg PO MWF@21 11/26/18 mg (*)] predniSONE [Prednisone] 10 mg PO DAILY 11/26/18 HYDROcodone/APAP 10/325 [Vanderpool 1 tab PO Q6 PRN #40 tab 11/27/18 10325 (*)] guaiFENesin [Mucinex 600 MG (*)] 600 mg PO BID tab.er 11/27/18 Metoprolol Succinate Xr [Toprol Xl 25 mg PO HS 12/17/18 25 mg (*)] Polyethylene Glycol 3350 [Miralax 17 gm PO DAILY PRN 12/17/18 17 gm (*)] Medical Decision Making Consult/Admit Bed Type: [facility] for Dr. Merlos 1024; [facility] for [facility] 1025 - Data Points Medications Given: Discontinued Medications Hydromorphone HCl (Dilaudid) 1 mg IVP EDNOW ONE Stop: 12/17/18 10:21 Last Admin: 12/17/18 10:37 Dose: 1 mg Hydromorphone HCl (Dilaudid) 1 mg IVP EDNOW ONE Stop: 12/17/18 11:46 Last Admin: 12/17/18 11:48 Dose: 1 mg Miscellaneous Medication (Icy Hot Lidocaine/Menthol 4%/1% Patch) 1 patch TD EDNOW ONE Stop: 12/17/18 10:21 Last Admin: 12/17/18 10:38 Dose: 1 patch Ondansetron HCl (Zofran) 4 mg IVP EDNOW ONE Stop: 12/17/18 10:21 Last Admin: 12/17/18 10:37 Dose: 4 mg Departure - Departure Disposition: [facility] Acute Clinical Impression: Back pain Condition: Good
[2018-12-17] MEDS ORDERED: ONDANSETRON 4 MG/2 ML VIAL IVP ONE (10:20)
[2018-12-17] MEDS ORDERED: HYDROmorphONE/DILAUDID 2 MG/ML INJ IVP ONE (10:20)
[2018-12-17] MEDS ORDERED: LIDOCAINE 4%/MENTHOL 1% PATCH TD ONE (10:20)
[2018-12-17 10:53] LABS: PLATELET COUNT 273 10^3/uL (150-400)
[2018-12-17] MEDS ORDERED: HYDROmorphONE/DILAUDID 2 MG/ML INJ ONE (11:39)
[2018-12-17] MEDS ORDERED: HYDROmorphONE/DILAUDID 1 MG/ML INJ IVP ONE (11:45)
[2018-12-17] MEDS ORDERED: LORazepam 1 MG TAB PO PRN (12:46)
[2018-12-17] MEDS ORDERED: Propylene Glycol/Peg 400/Pf [Systane 0.3-0.4% Eye Drops] OP PRN (12:46)
--- NOTE | 2018-12-17 12:54 | PDGENHP ---
History and Physical History and Physical: CC: Acute on chronic low back pain HISTORY: This patient comes to the ER with worsening low back pain [facility] in [facility]. He has a very complex past history with back problems including 7 prior lumbar and sacral surgeries with hardware, and a recent fall with a burst fracture at T11. I reviewed his past history of back pain in detail with him and with his inpatient and outpatient records, have reviewed images and reports from recent MRIs CT scans and x-rays of his spine from cervical thoracic lumbar and SI joint. I have reviewed the notes from Dr. Ellis who visited him in the ER today. Essentially the pain initiates at this point at the superior portion of his SI joint and spreads across his lumbar region from there without any radiation up or down. There are no paresthesias or other neuropathic sounding pain symptoms, and there are no signs of weakness bowel or bladder function. He has no fevers chills or sweats. (some chronic daily diaphoresis at night which she has had for many years unchanged). On imaging here there appears to be stable compression the sacrum which Dr. Ellis does not think is the cause of his pain. There is evidence of sacroiliac abnormalities. The patient did have a sacroiliac injection on November 26 which gave him very brief partial relief of pain for a couple of days. This may be an indication that that actually is the location of his pain source. The patient otherwise feels well with no symptoms to suggest any other acute medical issues ROS: A comprehensive 10 system review revealed no other significant findings PAST MEDICAL HISTORY: Gout Asthma Anxiety disorder Spinal stenosis with 7 previous spine surgeries Patient states he does not have Diabetes mellitus which was diagnosed at 1 point when he had high blood sugars from taking high-dose steroids for his back. 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 I have reviewed the list and ordered appropriate medicines. PHYSICAL EXAMINATION: Vital Signs: Initial blood pressure in the ER very high, improved with pain meds and has been normal since then, otherwise normal vitals without fever Examination: General: alert, oriented, good mentation, looks fairly uncomfortable lying in the bed having trouble finding a comfortable position; his ability to move from supine position is severely limited by his pain which increases quite dramatically when he tries to move in any direction. Attempts at straight leg raise testing is hampered by pain but only across the low back no sciatic type pain. No decreased reflexes or strength is detectable but the strength exam is limited by his pain Skin: warm, dry, good color, no rash HEENT: normal Neck: no mass or jvd Resps: relaxed Lungs: clear breath sounds Heart: regular, no murmur Abdomen: soft, nondistended, nontender, +BS, no mass Upper Extremities: normal Lower Extremities: no edema, warm No Bleeding or bruising IV site: looks normal LABORATORY DATA: RADIOLOGY STUDIES: I reviewed imaging studies from his previous hospital admission include MRIs and CTs Of spine and SI joints. At that point last week there was a T11 burst fracture with retropulsion of 4 mm of 1 segment. There was no significant concerning neural impingement or so canal stenosis. Previous hardware appeared stable though there was lucency around 1 screw. 12 LEAD EKG: ASSESSMENT: High white blood cell count which is most likely related to recent use of steroid Blood sugar 102 otherwise unremarkable chemistry PLANS: * Admission to the hospital to try and improve pain management and mobility with hope to be able to discharge him with conservative therapy * The plan will then be for him to follow up with Dr. Calderón in the clinic to consider possible sacroiliac fusion or other procedure * Due to the patient's persistent pain and high white count, it is reasonable to check an sed rate and CRP and watch his temperatures closely to make sure there is no sign of any infection * If for some reason we are unable to get him better mobilized to go home with better pain control, could potentially need to switch plans to considering inpatient procedure Due to the patient's severe pain, severely limited mobility, and very poor response to oral in injected steroids, narcotics, and other medications, is anticipated that he will probably have a slow response here and it is expected that he will need more than 48 hr for titrating pain management. Will admit as an inpatient I have reviewed the patient's case in detail with Dr. Madan Hernández I have reviewed the patient's past medical records as part of this assessment, including previous hospital and ER records, outpatient records
[2018-12-17] MEDS: HYDROCODONE/APAP 10/325 TAB PO PRN (15:01)
[2018-12-17] MEDS: traMADol 50 MG TAB PO PRN (16:27)
--- NOTE | 2018-12-17 16:39 | GCON ---
DATE OF CONSULTATION: 12/17/2018 REASON FOR CONSULTATION: Intractable right-sided SI joint/buttock pain. HISTORY OF PRESENT ILLNESS: The patient is very well known to the [facility]. He is a 78-year-old gentleman, who has undergone multiple spinal surgeries including 7 previous spine surgeries in which he is fused from T12 to S2, most recently by Dr. Niko Palomino. The patient has been in and out of the hospital several times for intractable right-sided buttock pain located over the SI joint. He was recently discharged from the hospital around 11/26 and 11/27 for intractable pain. At that time, the patient underwent a right-sided SI joint injection which he and his state gave him 50% to 60% pain relief for approximately 48 hours. He was discharged home and has been following up with [facility], his pain management group. He went back to [facility] for injections into his shoulder, and at that time, had such severe pain he was directed to the emergency department for further evaluation and management. The patient states that he has recently undergone another injection at [facility] into the SI joint in an attempt for an ablation which did not provide him with any lasting benefit. The pain is located over the right buttock and right SI joint. There is no radiation into the lower extremities. He does not have any mid thoracic or thoracolumbar junction midline pain. The pain has been so severe he has not been able to manage it at home with narcotic pain medications. Denies any bowel or bladder incontinence and no new weakness. He has been managing it with lying flat. It is worse with movement. He has been trying 10 mg of Merrillan every 4 hours. REVIEW OF SYSTEMS: Complete 10-point review of systems from the patient intake form, reviewed by myself, significant only for those noted above in the HPI. PAST MEDICAL HISTORY: 1. Gout. 2. Asthma. 3. Anxiety. 4. Spinal stenosis with 7 previous spinal surgeries. 5. Chronic back pain. 6. Diabetes. SOCIAL HISTORY: He lives in [place] and is . He is retired but otherwise a very active gentleman. Denies tobacco use. FAMILY HISTORY: Noncontributory. ALLERGIES: 1. Sulfa. 2. Sildenafil. 3. Tadalafil. MEDICATIONS: 1. Ranitidine 150 mg p.o. daily. 2. DuoNeb 3 mL inhaled three times daily p.r.n. 3. Systane 0.3/0.4% eyedrops to each eye daily p.r.n. 4. Advair 250/50 one puff inhaled twice daily. 5. Multivitamin. 6. Glucosamine/chondroitin 1 tablet p.o. daily. 7. Ativan 0.5-1 mg p.o. at bedtime p.r.n. 8. Allopurinol 3 mg p.o. daily. 9. Calcium carbonate 500 mg p.o. at bedtime. 10. Zyrtec 10 mg p.o. daily. 11. Cymbalta 30 mg p.o. daily. 12. Herbal supplements daily. 13. Fish oil 1000 mg p.o. q.3 days per week. 14. Prednisone 10 mg p.o. daily. 15. Merrillan 1 tab p.o. q.6 hours p.r.n. 16. Mucinex 600 mg p.o. twice daily. 17. Metoprolol 25 mg p.o. at bedtime. 18. MiraLAX 17 mg p.o. daily p.r.n. PHYSICAL EXAMINATION: VITAL SIGNS: Blood pressure 136/82, heart rate is 81, respiratory rate 18, saturating 96% on 2 L nasal cannula. Temperature is 36.7 degrees Celsius orally. GENERAL: Patient is lying in the bed. He is in no acute distress. He is quite pleasant and cooperative with examination. His is at the bedside. He is alert and oriented x3. HEENT: Head is atraumatic, normocephalic. Pupils are equal, round, and reactive to light bilaterally. Oropharynx is moist. 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 SENSORY: He has intact sensation to light touch throughout all major dermatomes of the bilateral upper and lower extremities throughout. REFLEXES: 2+ reflexes at the bilateral brachioradialis, 1+ reflexes at the bilateral patella. No Baker 's, no Babinski, and no clonus. SPINE: The patient has no midline tenderness to direct palpation. He does have pain into the right buttock over the SI joint with direct palpation. MEDICAL DECISION MAKING: Patient underwent thoracolumbar x-rays reviewed by myself on the [facility] PAC system on 12/17/2018 which demonstrates intact spinal hardware between T12 to S2 with screws in the iliac wings. There was evidence of severe T11 compression fracture which is stable from his prior CT scan noted in 11/26/2018. No new fractures or broken hardware. ASSESSMENT AND PLAN: The patient is a very pleasant 78-year-old gentleman, who has undergone extensive spinal hardware and fusion, who presents with intractable back pain which is localized to his right sacroiliac joint. He does have a compression deformity and fracture which appears to be stable, and on physical examination, he has no pain localized to the thoracolumbar junction. It appears that his pain is localized to the sacroiliac joint, and in fact, he went underwent a prior injection at his last hospitalization which gave him 50% to 60% pain reduction for approximately 48 hours. I discussed extensively with the patient and his the treatment options which include sacroiliac joint ablation which they have undergone prior evaluation and was not found to be a candidate. He does appear to be a candidate, however, for a sacroiliac joint fusion. We will try to get him into the hospital service and get him pain control enough that he can be discharged home. Query whether the patient is safe to be discharged home to the care of his . We will submit the paperwork for an outpatient right-sided sacroiliac joint fusion which I think he is an appropriate candidate for. I do not think at this time that the compression deformity is contributing to any of his symptoms, though I did explain to him that if the sacroiliac joint fusion does not work, that could be an avenue we pursue. I reviewed the risks, benefits, and surgical procedure for the right-sided sacroiliac joint fusion with him and his , and they are in agreement with this treatment plan. There are no plans for any surgical intervention during this hospitalization. Please note, the patient was seen in the emergency department by myself at 12: 30 on 12/17/2018. /[id number]/MODL MTDD
[2018-12-17] MEDS ORDERED: KETOROLAC 15 MG/1 ML SDV IVP SCH (18:00)
[2018-12-17] MEDS: HYDROmorphONE/DILAUDID 4 MG TAB PO PRN ×2 (18:24→23:37)
[2018-12-17] MEDS: METOPROLOL SUCCINATE XR 25 MG TAB PO SCH (20:13)
[2018-12-17] MEDS: FAMOTIDINE 20 MG TAB PO SCH (20:13)
[2018-12-17] MEDS: CALCIUM CARBONATE 500 MG TAB PO SCH (20:13)
[2018-12-17] MEDS: guaiFENesin 600 MG TAB.ER PO SCH (20:13)
[2018-12-17] MEDS: OMEGA-3 FATTY ACIDS 1,000 MG CAP PO SCH (20:13)
[2018-12-17] MEDS: FLUTICASONE/SALMETER 250/50MCG DISKUS IH SCH (20:14)
[2018-12-17] MEDS: KETOROLAC 15 MG/1 ML SDV IVP PRN (20:20)
[2018-12-17] MEDS ORDERED: PATCH REMOVAL 1 EA PATCH TD SCH (21:00)
[2018-12-17] MEDS: CYCLOBENZAPRINE 10 MG TAB PO SCH (23:37)
[2018-12-17] MEDS: PATCH REMOVAL 1 EA PATCH TD SCH (23:37)
[2018-12-18] MEDS: HYDROmorphONE/DILAUDID 4 MG TAB PO PRN ×3 (05:56→21:38)
[2018-12-18] MEDS: DULoxetine 30 MG CAP PO SCH (07:57)
[2018-12-18] MEDS: CYCLOBENZAPRINE 10 MG TAB PO SCH ×3 (07:57→21:38)
[2018-12-18] MEDS: CETIRIZINE 10 MG TAB PO SCH (07:57)
[2018-12-18] MEDS: guaiFENesin 600 MG TAB.ER PO SCH ×2 (07:58→19:59)
[2018-12-18] MEDS: predniSONE 10 MG TAB PO SCH (07:58)
[2018-12-18] MEDS: GLUCOSAMINE/CHONDROITIN CAP PO SCH (07:58)
[2018-12-18] MEDS: ALLOPURINOL 300 MG TAB PO SCH (07:58)
[2018-12-18] MEDS: FAMOTIDINE 20 MG TAB PO SCH ×2 (07:58→20:00)
[2018-12-18] MEDS: MULTIVITAMINS 1 EACH TAB PO SCH (07:58)
[2018-12-18] MEDS: HYDROCODONE/APAP 10/325 TAB PO PRN (08:05)
[2018-12-18] MEDS: KETOROLAC 15 MG/1 ML SDV IVP PRN ×2 (08:05→14:09)
[2018-12-18] MEDS: POLYETHYLENE GLYCOL 3350 17 GM PKT PO PRN (08:06)
[2018-12-18] MEDS: FLUTICASONE/SALMETER 250/50MCG DISKUS IH SCH ×2 (08:20→20:02)
[2018-12-18] MEDS: IPRATROPIUM/ALBUTEROL 3 ML DEYVIAL IH PRN ×2 (08:20→15:10)
[2018-12-18] MEDS ORDERED: LIDOCAINE 4%/MENTHOL 1% PATCH TD SCH (09:00)
--- NOTE | 2018-12-18 09:43 | HOSPPROG ---
Hospitalist Progress Note Assessment/Plan: #Right hip pain -h/o SI joint pain. Min relief with prior injection. NSGY will follow outpatient -Ortho consulted, no acute pathology on X-ray -Pain control with Flexeril, Toradol, APAP, Dilaudid. PT #Gout: Allopurinol #Asthma: no exacerbation #Anxiety: home Ativan #Diet: regular #DVT ppx: SCDs #Disp: inpatient admission for PT, pain control Subjective: right hip pain radiates across lower back. OK if not moving Objective: Vital Signs Temp Pulse Resp BP Pulse Ox 36.8 C 69 14 116/77 96 12/18/18 07:53 12/18/18 08:25 12/18/18 08:25 12/18/18 07:53 12/18/18 08:25 Laboratory Results 12/17/18 10:30 12/17/18 10:30 12/17/18 12/18/18 12/19/18 05:59 05:59 05:59 Intake Total 630 Output Total 450 400 Balance 180 -400 - Time Spent With Patient Time Spent with Patient: greater than 35 minutes Time Spent with Patient: Greater than 35 minutes spent on this patients care, greater than 50% of time spent counseling, educating, and coordinating care regarding the above mentioned plan. - Physical Exam Constitutional: no apparent distress Eyes: PERRL Ears, Nose, Mouth, Throat: moist mucous membranes Cardiovascular: regular rate and rhythym Respiratory: no respiratory distress Gastrointestinal: normoactive bowel sounds Genitourinary: no bladder fullness Skin: warm Musculoskeletal: other ( no palpable hip pain. Good ROM. Negative straight leg test) Neurologic: AAOx3, CN II-XII Intact Psychiatric: interacting appropriately ICD10 Worksheet Patient Problems: Problems Problem Status Onset Back pain Acute Cervical pain (neck) Acute Medication side effect Acute Other spondylosis with radiculopathy, lumbar region Acute Other spondylosis with radiculopathy, lumbar region Acute Pain Acute Pain Acute
--- NOTE | 2018-12-18 10:17 | NEUSURGPN ---
Assessment/Plan: Assessment: 78 yr old M with a history of T12-S2 fusion, right hip/SI pain Plan: -Patient is admitted to medicine -Patient has localized right SI pain, non tender to palpation. Has gotten minimal relief with a right SI injection. -Will try to get pain under control to continue work up of SI joint as an out patient -Will have Ortho eval to rule in/out any right hip pathology. Xr right hip ordered -Patient discussed with Dr Ellis Please call neurosurgery with questions/concerns Subjective: Right SI/hip pain Objective: AxO x4 MARTINEZ x4 5/5 BUE, BLE Thorcolumbar spine non tender to palpation Right SI NON tender to palpation Unable to assess gait Mild positive NICOLETTE on right Neuro Check Frequency: per routine Urinary Catheter in Place: No - Physician Discussed Patient with : [facility] Physical Exam - Vitals, I&O, Labs I and O 12/17/18 12/18/18 12/19/18 05:59 05:59 05:59 Intake Total 630 Output Total 450 400 Balance 180 -400 Weight 74.843 kg Intake: Oral (ml) 600 IV Infused (ml) 30 Output: Urine (ml) 450 400 Urinal 450 400 Other: Intake Quantity Yes Sufficient Vital Signs Temp Pulse Resp BP Pulse Ox 36.8 C 69 14 116/77 96 12/18/18 07:53 12/18/18 08:25 12/18/18 08:25 12/18/18 07:53 12/18/18 08:25 Laboratory Results 12/17/18 10:30 12/17/18 10:30 ICD10 Worksheet Patient Problems: Problems Problem Status Onset Back pain Acute Cervical pain (neck) Acute Medication side effect Acute Other spondylosis with radiculopathy, lumbar region Acute Other spondylosis with radiculopathy, lumbar region Acute Pain Acute Pain Acute
--- NOTE | 2018-12-18 10:41 | PDMN ---
Medical Necessity [place] [facility] [place], A-1 day: 78 yo w/ worsening low back pain in setting of very complex hx of back problems and multiple surgeries w/ hardware and recent fall w/ burst T11 fx. Initially OBS for workup and pain management but change to IP same day as pt experiencing severe pain, is severely limited in mobility and very poor response to PO or injected steroids, narcotics and other meds, anticipate pt will have slow response and expected > 48hours for titrating pain management. Neurosurgery and ortho consults ordered. Hx spinal stenosis w/ 7 previous spine surgeries, asthma, gout, anxiety. Change to IP status 12/17/18 @1802 per MD order
[2018-12-18] MEDS: traMADol 50 MG TAB PO PRN ×2 (12:17→20:00)
--- NOTE | 2018-12-18 16:07 | ASMTCMCOM ---
CM Note CM Note Notes: Reviewed chart. Pt admitted for worsening back pain. History is extensive and includes seven prior lumbar/sacral surgeries with hardware, gout, asthma, spinal stenosis and an anxiety disorder. Pt was recently discharged on 11/27/18 with similar complaints. Pt is and lives in [place] with his . Therapy evals are pending. Discharge needs remain unclear at this time. CM will continue to follow for any potential needs. Discharge Plan: To be determined Date Signed: 12/18/2018 04:06 PM Electronically Signed By:Radha Mann RN
--- NOTE | 2018-12-18 16:22 | PDCONSULT ---
[facility] Note: ORTHOPEDIC SURGERY CONSULT ASSESSMENT: Right/Left Hip Pain. PLAN: History and Physical exam with X-rays of Pelvis show no gross abnormalities regarding the hips or pelvis. Pain is most likely radiating from underlying lumbar/thoracic hardware and burst /compression fracture. We were asked to consult regarding hip pain, and appreciate the consult. We will defer further treatment to current Neuro Surgeon treatment plan. Any further issues, please reach out to us. Denton King PA-C for attending Dr. Patel (Orthopedic Surgery) IMAGES: Pelvis/Hip X-rays taken show no gross abnormalities or fractures pertaining to the hip/pelvis. Mild osteoarthritis seen. SUBJECTIVE: Patient states he was having pain in the posterior region of his right hip, and now it is his left, and right no longer has pain. He denies any numbness or tingling down his legs or feet. OBJECTIVE: Right and Left Hips Full ROM motion with no groin pain. No swelling or bruising seen. No open wounds. Tenderness over posterior illiac crest of bilateral hips, and lumbar paravertebral tenderness to palpation. Distal neurovasculature intact.
[2018-12-18] MEDS: METOPROLOL SUCCINATE XR 25 MG TAB PO SCH (20:00)
[2018-12-18] MEDS: CALCIUM CARBONATE 500 MG TAB PO SCH (20:00)
[2018-12-18] MEDS: PATCH REMOVAL 1 EA PATCH TD SCH (20:19)
[2018-12-19] MEDS: KETOROLAC 15 MG/1 ML SDV IVP PRN (04:08)
[2018-12-19] MEDS: GLUCOSAMINE/CHONDROITIN CAP PO SCH (07:18)
[2018-12-19] MEDS: traMADol 50 MG TAB PO PRN ×3 (07:18→21:12)
[2018-12-19] MEDS: CETIRIZINE 10 MG TAB PO SCH (07:18)
[2018-12-19] MEDS: guaiFENesin 600 MG TAB.ER PO SCH ×2 (07:19→21:03)
[2018-12-19] MEDS: FAMOTIDINE 20 MG TAB PO SCH ×2 (07:19→21:03)
[2018-12-19] MEDS: MULTIVITAMINS 1 EACH TAB PO SCH (07:19)
[2018-12-19] MEDS: predniSONE 10 MG TAB PO SCH (07:19)
[2018-12-19] MEDS: CYCLOBENZAPRINE 10 MG TAB PO SCH ×3 (07:19→21:03)
[2018-12-19] MEDS: HYDROmorphONE/DILAUDID 4 MG TAB PO PRN ×2 (07:19→13:58)
[2018-12-19] MEDS: DULoxetine 30 MG CAP PO SCH (07:19)
[2018-12-19] MEDS: ALLOPURINOL 300 MG TAB PO SCH (07:46)
[2018-12-19] MEDS: FLUTICASONE/SALMETER 250/50MCG DISKUS IH SCH ×2 (09:33→20:33)
[2018-12-19] MEDS: IPRATROPIUM/ALBUTEROL 3 ML DEYVIAL IH PRN ×2 (09:34→20:33)
--- NOTE | 2018-12-19 10:17 | GDS ---
DISCHARGE DIAGNOSES: 1. Acute on chronic right sacroiliac pain. 2. Gout. 3. Asthma. 4. Anxiety. CONSULTATIONS: Neurosurgery. HISTORY OF PRESENT ILLNESS: A pleasant 78-year-old male well known to [facility] who has undergone multiple spine surgeries. He is fused from T12 to S2 most recently by Dr. Palomino. He has been in and out of the hospital several times for intractable right-sided buttock pain over the SI joint. Last discharged beginning of November after a right-sided SI joint injection, which gave him 50% pain relief for 48 hours. He recently underwent another injection at [facility] into the SI joint in attempt for ablation, but that did not give lasting benefit. HOSPITAL COURSE BY PROBLEM: 1. Acute on chronic right hip SI joint pain: Dr. Ellis evaluated the patient here in house. They will plan for followup intervention as an outpatient. Pain is better controlled with the addition of muscle relaxers, NSAID, and Dilaudid. I provided a week's worth. Orthopedics also evaluated to ensure no other orthopedic pathology. X-ray was unrevealing. He will follow up with his PCP for further refills. Continue bowel regimen. 2. Gout. Allopurinol. 3. Asthma. No exacerbation. 4. Anxiety. Home medications. 5. Diabetes, stable. DISPOSITION: Patient is stable for discharge home with his . He lives in [place]. MEDICATIONS: See medication reconciliation, FOLLOWUP: 1. Primary care physician. 2. Dr. Ellis. TIME SPENT ON DISCHARGE: Greater 30 minutes at bedside counseling patient on medication regimen and followup plan. PHYSICAL EXAM: VITAL SIGNS: Today: Temperature 36.4, blood pressure 105/60, heart rate in the 60s, respirations 16, 96% on room air. GENERAL: He is well appearing in no acute distress. HEENT: PERRLA. Moist mucous membranes. CV: Regular rate and rhythm. LUNGS: Clear. ABDOMEN: Soft, nontender, nondistended. Positive bowel sounds. : No Spencer. MUSCULOSKELETAL: He is moving all 4 extremities. No point tenderness over the SI joint. NEURO: Sensations intact. PSYCH: He is alert and oriented x3. . Addendum: patient will stay overnight for injection in the morning /[id number]/MODL MTDD
--- NOTE | 2018-12-19 10:26 | HOSPPROG ---
Hospitalist Progress Note Assessment/Plan: #Right hip pain -h/o SI joint pain. Min relief with prior injection. -plan for right SI injection and T11 kypho tomorrow and fusion outpatient. Discussed with Malu with NSGY -Ortho consulted, no acute pathology on X-ray -Pain control with Flexeril, Toradol, APAP, Dilaudid. PT #Gout: Allopurinol #Asthma: no exacerbation #Anxiety: home Ativan #Diet: regular #DVT ppx: SCDs #Disp: inpatient admission for PT, pain control Subjective: pain better controlled Objective: Vital Signs Temp Pulse Resp BP Pulse Ox 36.4 C 65 16 105/62 96 12/19/18 07:23 12/19/18 07:23 12/19/18 07:23 12/19/18 07:23 12/19/18 07:23 Laboratory Results 12/17/18 10:30 12/17/18 10:30 12/18/18 12/19/18 12/20/18 05:59 05:59 05:59 Intake Total 630 1000 Output Total 450 600 Balance 180 400 - Time Spent With Patient Time Spent with Patient: greater than 35 minutes Time Spent with Patient: Greater than 35 minutes spent on this patients care, greater than 50% of time spent counseling, educating, and coordinating care regarding the above mentioned plan. - Physical Exam Constitutional: no apparent distress Eyes: PERRL Ears, Nose, Mouth, Throat: moist mucous membranes Cardiovascular: regular rate and rhythym Respiratory: no respiratory distress Gastrointestinal: normoactive bowel sounds Genitourinary: no bladder fullness Skin: warm Musculoskeletal: other (no point TTP over SI. Negative straight leg) Neurologic: AAOx3, sensation intact bilaterally, CN II-XII Intact Psychiatric: interacting appropriately ICD10 Worksheet Patient Problems: Problems Problem Status Onset Back pain Acute Cervical pain (neck) Acute Medication side effect Acute Other spondylosis with radiculopathy, lumbar region Acute Other spondylosis with radiculopathy, lumbar region Acute Pain Acute Pain Acute
--- NOTE | 2018-12-19 10:28 | NEUSURGPN ---
Assessment/Plan: Assessment: 78 yr old M with a history of T12-S2 fusion, right hip/SI pain Plan: -Patient is admitted to medicine -Ortho eval did not find hip to be source of symptoms -Patient has localized right SI pain, has gotten some relief with injections in the past -Will have IR do right SI injection tomorrow am as well at T11 kyphoplasty for his worsening compression fracture -Patient and his agree with the plan and all questions answered -NPO at midnight -Patient discussed with Dr Ellis Please call neurosurgery with questions/concerns Subjective: pain better with laying flat Objective: AxO x4 MARTINEZ x4 5/5 BUE, BLE Thorcolumbar spine non tender to palpation Right SI NON tender to palpation Neuro Check Frequency: per routine Urinary Catheter in Place: No - Physician Discussed Patient with Dr.: Ellis Neurosurgery Physical Exam - Vitals, I&O, Labs I and O 12/18/18 12/19/18 12/20/18 05:59 05:59 05:59 Intake Total 630 1000 Output Total 450 600 Balance 180 400 Weight 74.843 kg Intake: Oral (ml) 600 1000 IV Infused (ml) 30 Output: Urine (ml) 450 600 Urinal 450 600 Other: Intake Quantity Yes Sufficient Number of Voids Urinal 2 Vital Signs Temp Pulse Resp BP Pulse Ox 36.4 C 65 16 105/62 96 12/19/18 07:23 12/19/18 07:23 12/19/18 07:23 12/19/18 07:23 12/19/18 07:23 Laboratory Results 12/17/18 10:30 12/17/18 10:30 ICD10 Worksheet Patient Problems: Problems Problem Status Onset Back pain Acute Cervical pain (neck) Acute Medication side effect Acute Other spondylosis with radiculopathy, lumbar region Acute Other spondylosis with radiculopathy, lumbar region Acute Pain Acute Pain Acute
[2018-12-19] MEDS: POLYETHYLENE GLYCOL 3350 17 GM PKT PO PRN (12:04)
--- NOTE | 2018-12-19 14:00 | ASMTCMCOM ---
CM Note CM Note Notes: No dc today, pt still struggling with pain. Will have Kyphoplasty and SI injection on Thursday. PT eval pending, CM w/f for dc needs. Date Signed: 12/19/2018 01:59 PM Electronically Signed By:Nessa Singleton RN
[2018-12-19] MEDS ORDERED: ONDANSETRON 4 MG/2 ML VIAL ONE (16:07)
[2018-12-19] MEDS ORDERED: ONDANSETRON 4 MG/2 ML VIAL IVP PRN (16:12)
[2018-12-19] MEDS: CALCIUM CARBONATE 500 MG TAB PO SCH (21:03)
[2018-12-19] MEDS: PATCH REMOVAL 1 EA PATCH TD SCH (21:03)
[2018-12-19] MEDS: METOPROLOL SUCCINATE XR 25 MG TAB PO SCH (21:03)
[2018-12-20] MEDS: HYDROmorphONE/DILAUDID 4 MG TAB PO PRN ×2 (01:40→08:23)
[2018-12-20] MEDS: traMADol 50 MG TAB PO PRN ×3 (03:33→20:27)
--- NOTE | 2018-12-20 08:22 | NEUSURGPN ---
Assessment/Plan: Assessment: 78 yr old M with a history of T12-S2 fusion, right hip/SI pain Plan: -Patient is admitted to medicine -Ortho eval did not find hip to be source of symptoms -Patient has localized right SI pain, has gotten some relief with injections in the past -Order for IR to do right SI injection today as well at T11 kyphoplasty for his worsening compression fracture -Patient and his agree with the plan and all questions answered -Patient is NPO -Patient having breakthrough pain at 4 hours post tramadol, will increase frequency of Tramadol -Ok to try ice over right SI region -Attempt to dispo home when pain managed, our office is working on authorization for SI fusion as an out patient -Patient discussed with Dr Ellis Please call neurosurgery with questions/concerns Subjective: Worsening right SI pain overnight Objective: AxO x4 MARTINEZ x4 5/5 BUE, BLE Thorcolumbar spine non tender to palpation Right SI tender to palpation Neuro Check Frequency: per routine Urinary Catheter in Place: No - Physician Discussed Patient with Dr.: Ellis Neurosurgery Physical Exam - Vitals, I&O, Labs I and O 12/19/18 12/20/18 12/21/18 05:59 05:59 05:59 Intake Total 1000 450 Output Total 600 Balance 400 450 Intake: Oral (ml) 1000 450 Output: Urine (ml) 600 Urinal 600 Other: Intake Quantity Yes Sufficient Number of Voids Toilet 3 Urinal 2 Number of Stools Toilet 1 Vital Signs Temp Pulse Resp BP Pulse Ox 36.7 C 71 14 170/86 H 95 12/20/18 08:00 12/20/18 08:00 12/20/18 08:00 12/20/18 08:00 12/20/18 08:00 Laboratory Results 12/17/18 10:30 12/17/18 10:30 ICD10 Worksheet Patient Problems: Problems Problem Status Onset Back pain Acute Cervical pain (neck) Acute Medication side effect Acute Other spondylosis with radiculopathy, lumbar region Acute Other spondylosis with radiculopathy, lumbar region Acute Pain Acute Pain Acute
[2018-12-20] MEDS: FAMOTIDINE 20 MG TAB PO SCH ×2 (08:23→21:22)
[2018-12-20] MEDS: GLUCOSAMINE/CHONDROITIN CAP PO SCH (08:24)
[2018-12-20] MEDS: CETIRIZINE 10 MG TAB PO SCH (08:24)
[2018-12-20] MEDS: guaiFENesin 600 MG TAB.ER PO SCH ×2 (08:24→21:22)
[2018-12-20] MEDS: CYCLOBENZAPRINE 10 MG TAB PO SCH ×3 (08:24→21:22)
[2018-12-20] MEDS: DULoxetine 30 MG CAP PO SCH (08:24)
[2018-12-20] MEDS: predniSONE 10 MG TAB PO SCH (08:24)
[2018-12-20] MEDS: ALLOPURINOL 300 MG TAB PO SCH (08:24)
[2018-12-20] MEDS: MULTIVITAMINS 1 EACH TAB PO SCH (08:24)
[2018-12-20] MEDS: IPRATROPIUM/ALBUTEROL 3 ML DEYVIAL IH PRN ×2 (09:23→21:02)
[2018-12-20] MEDS: FLUTICASONE/SALMETER 250/50MCG DISKUS IH SCH ×2 (09:23→21:08)
--- NOTE | 2018-12-20 12:49 | HOSPPROG ---
Hospitalist Progress Note Assessment/Plan: 78 yo M w SI pain. Right hip pain h/o SI joint pain. Min relief with prior injection. plan for right SI injection and T11 kypho tomorrow and fusion outpatient. Discussed with Malu with NSGY Ortho consulted, no acute pathology on X-ray Pain control with Flexeril, Toradol, APAP, Dilaudid. PT Gout: Allopurinol Asthma: no exacerbation Anxiety: home Ativan Diet: regular DVT ppx: SCDs Disp: inpatient admission for PT, pain control Subjective: sleeping but uncomfortable when awakened Objective: Vital Signs Temp Pulse Resp BP Pulse Ox 36.7 C 71 14 170/86 H 95 12/20/18 08:00 12/20/18 08:00 12/20/18 08:00 12/20/18 08:00 12/20/18 08:00 Laboratory Results 12/17/18 10:30 12/17/18 10:30 12/19/18 12/20/18 12/21/18 05:59 05:59 05:59 Intake Total 1000 450 Output Total 600 Balance 400 450 - Physical Exam Constitutional: no apparent distress, appears nourished Eyes: PERRL, anicteric sclera Ears, Nose, Mouth, Throat: moist mucous membranes, hearing normal, ears appear normal Cardiovascular: regular rate and rhythym, no murmur, rub, or gallop Respiratory: no respiratory distress, no rales or rhonchi Gastrointestinal: normoactive bowel sounds, soft, non-tender abdomen Genitourinary: no bladder fullness, No james in urethra Skin: warm, normal color Musculoskeletal: full muscle strength Neurologic: AAOx3 ICD10 Worksheet Patient Problems: Problems Problem Status Onset Back pain Acute Cervical pain (neck) Acute Medication side effect Acute Other spondylosis with radiculopathy, lumbar region Acute Other spondylosis with radiculopathy, lumbar region Acute Pain Acute Pain Acute
[2018-12-20] MEDS: KETOROLAC 15 MG/1 ML SDV IVP PRN (13:00)
--- NOTE | 2018-12-20 14:17 | PDHPUP ---
History & Physical Update H&P update statement: This history and physical update is based on an assessment of the patient which was completed after admission or registration (within 24 hours), but prior to the surgery/procedure. Compression Fx T11 worsening of compression with acute pain/point tenderness. Plan for T11 vertebroplasty. H&P update: H&P reviewed & patient examined, no change in patient's condition since H&P completed
[2018-12-20 14:44] LABS: INR 1.01 (0.83-1.16); PROTIME(PATIENT) 13.5 SEC (12.0-15.0)
--- NOTE | 2018-12-20 15:03 | PDANEPAE ---
ANE History of Present Illness osteoprosis ANE Past Medical History - Cardiovascular History Hx Hypertension: Yes Hx Arrhythmias: No Hx Chest Pain: No Hx Coronary Artery / Peripheral Vascular Disease: No Hx CHF / Valvular Disease: No Hx Palpitations: No Cardiovascular History Comment: pcp monitors bp - Pulmonary History Hx COPD: No Hx Asthma/Reactive Airway Disease: Yes Hx Recent Upper Respiratory Infection: No Hx Oxygen in Use at Home: Yes O2 in Use at Home (L/minute): 2 Hx Sleep Apnea: No Sleep Apnea Screening Result - Last Documented: Positive Pulmonary History Comment: uses inhalers- instructed pt to bring to hospital. adelina triggers - Neurologic History Hx Cerebrovascular Accident: Yes Hx Seizures: No Hx Dementia: No Neurologic History Comment: stroke 30 yrs ago with a few mini strokes since, none in a couple years - Endocrine History Hx Diabetes: Yes Hypothyroid: No Hyperthyroid: No Obesity: no Endocrine History Comment: type 2 - Renal History Hx Renal Disorders: No - Liver History Hx Hepatic Disorders: No - Neurological & Psychiatric Hx Hx Neurological and Psychiatric Disorders: No - Cancer History Hx Cancer: Yes Cancer History Comment: skin ca on forehead, shoulder, back last one 3 yrs ago - Congenital Disorder History Hx Congenital Disorders: No - GI History GERD: mild Hx Gastrointestinal Disorders: Yes Gastrointestinal History Comment: reflux - Other Health History Other Health History: wears glasses. rash on right ankle currently. bruises easily - Chronic Pain History Chronic Pain: Yes (shoulder and neck) - Surgical History Prior Surgeries: 06/29/17 TLIF l5-s1, t12-s2 instrumentation and fusion with Palomino. 5 previous back surgeries. umbilical hernia 2012. eye surgery 2013. holly 30 yrs ago ANE Review of Systems Review of systems is: negative Review of Systems: - Exercise capacity METS (RN): 3 METS ANE Patient History - Allergies Allergies/Adverse Reactions: Sulfa (Sulfonamide Antibiotics) Allergy (Mild, Verified 12/17/18 09:33) Congestion sildenafil [From Viagra] Allergy (Verified 12/17/18 09:33) nasal and throat congestion tadalafil [From Cialis] Allergy (Verified 12/17/18 09:33) nasal and throat congestion - Home Medications Home medications: home medication list seen and reviewed Home Medications: Ranitidine HCl [Zantac] 150 mg PO DAILY 06/05/17 [Last Taken 12/17/18] Ipratropium/Albuterol [Duoneb (*)] 3 ml IH TID PRN 06/06/17 [Last Taken 08:00] Propylene Glycol/Peg 400/Pf [Systane 0.3-0.4% Eye Drops] 1 each OP DAILY PRN [Last Taken 12/20/17] Fluticasone/Salmeter 250/50Mcg [Advair 250/50 (*)] 1 puffs IH BID 10/28/17 [ Last Taken 12/16/18 21:00] Multivitamins [Multivitamin (*)] 1 each PO DAILY 12/21/17 [Last Taken 12/17/18] Glucosamine/Chondroitin [Glucosamine/Chondroitin (*)] 1 each PO DAILY 11/25/18 [ Last Taken 12/17/18] LORazepam [Ativan (*)] 0.5 - 1 mg PO HS PRN 11/25/18 [Last Taken 11/24/18] Allopurinol [Allopurinol 300 MG (RX)] 300 mg PO DAILY 11/26/18 [Last Taken 12/17] Calcium Carbonate [Oyster Shell Calcium 500 mg (*)] 500 mg PO HS 11/26/18 [Last Taken 12/16/18] Cetirizine [ZyrTEC 10 mg (*)] 10 mg PO DAILY 11/26/18 [Last Taken 12/17/18] Duloxetine HCl [Cymbalta] 30 mg PO DAILY 11/26/18 [Last Taken 12/16/18] Herbals/Supplements -Info Only 1 ea PO AD 11/26/18 [Last Taken Unknown] [place]-3 Fatty Acids [Fish Oil 1000 mg (*)] 1,000 mg PO MWF@21 11/26/18 [Last Taken 12/15/18] predniSONE [Prednisone] 10 mg PO DAILY 11/26/18 [Last Taken 12/17/18] Metoprolol Succinate Xr [Toprol Xl 25 mg (*)] 25 mg PO HS 12/17/18 [Last Taken 12/16/18] Polyethylene Glycol 3350 [Miralax 17 gm (*)] 17 gm PO DAILY PRN 12/17/18 [Last Taken Unknown] - NPO status NPO Status: no food or drink >8 hours - Anes Hx Anes Hx: slow to awaken from anesthesia - Smoking Hx Smoking Status: Former smoker - Family Anes Hx Family Hx Anesthesia Complications: none ANE Labs/Vital Signs - Labs Result Diagrams: 12/17/18 10:30 12/17/18 10:30 - Vital Signs Blood Pressure: 170/86 Heart Rate: 71 Respiratory Rate: 14 O2 Sat (%): 95 Height: 172.72 cm Weight: 74.843 kg ANE Physical Exam - Airway Neck exam: FROM Mallampati Score: Class 2 Mouth exam: normal dental/mouth exam - Pulmonary Pulmonary: no respiratory distress, clear to auscultation - Cardiovascular Cardiovascular: regular rate and rhythym, no murmur, rub, or gallop ANE Anesthesia Plan Anesthesia Plan: MAC Total IV Anesthesia: Yes
[2018-12-20] MEDS ORDERED: PROPOFOL/EMULSION 500 MG/50 ML BOTTLE IV ONE (15:06)
[2018-12-20] MEDS ORDERED: FLUMAZENIL 0.5 MG/5 ML MDV IVP PRN (15:34)
[2018-12-20] MEDS ORDERED: fentaNYL 100 MCG/2 ML INJ IVP PRN (15:34)
[2018-12-20] MEDS ORDERED: MEPERIDINE 25 MG/ML SYR IVP PRN (15:34)
[2018-12-20] MEDS ORDERED: DEXAMETHASONE 10 MG/ML VIAL IVP ONE (15:34)
[2018-12-20] MEDS ORDERED: NALOXONE HCL 0.4 MG/ML INJ IVP PRN ×2 (15:34→16:28)
[2018-12-20] MEDS ORDERED: MIDAZOLAM 2 MG/2 ML VIAL IVP PRN (15:34)
[2018-12-20] MEDS ORDERED: ceFAZolin 2 GM/DEXTROSE 100 ML IV ONE (15:34)
[2018-12-20] MEDS ORDERED: DEXAMETHASONE 4 MG/ML VIAL ONE ×3 (15:37)
--- NOTE | 2018-12-20 16:28 | POSTANESTH ---
Post Anesthetic Evaluation Cardiovascular Status: Normal, Stable Respiratory Status: Normal, Stable Level of Consciousness/Mental Status: Can Participate in Eval Pain Control: Adequate, Prn Tx Ordered Nausea/Vomiting Control: Adequate, Prn Tx Ordered Complications Possibly Related to Anesthesia: None Noted
--- NOTE | 2018-12-20 16:51 | PDRADPN ---
Radiology Procedure Note Date of Procedure: 12/20/18 Radiologist: Bossman Mehta Anesthesia: LMA, Other (Specify) (MAC) Pre-op Diagnosis: compression fracture Post-op Diagnosis: acute compression fracture Indication: T11 compression fracture Procedure: Vertebroplasty T11 Finding(s): moderate/severe compression fracture T11 with successful vertebroplasty with balloon cavity creation. Unable to confirm SI joint placement of contrast via fluoro guidance. Will reschedule with CT guidance. Inf/Abcess present in the surg proc area at time of surgery?: No
[2018-12-20] MEDS: OMEGA-3 FATTY ACIDS 1,000 MG CAP PO SCH (21:22)
[2018-12-20] MEDS: METOPROLOL SUCCINATE XR 25 MG TAB PO SCH (21:22)
[2018-12-20] MEDS: CALCIUM CARBONATE 500 MG TAB PO SCH (21:23)
--- NOTE | 2018-12-21 07:32 | NEUSURGPN ---
Assessment/Plan: Assessment: 78 yr old M with a history of T12-S2 fusion, right hip/SI pain, S/P T11 kyphoplasty with IR 12/20/18 Plan: -Patient is admitted to medicine -Ortho eval did not find hip to be source of symptoms -Patient has localized right SI pain, has gotten some relief with injections in the past -Patient notes improvement with his pain post kyphoplasty -Right SI injection pending for today -Ok to discharge from our standpoint if pain manageable, our office is working on authorization for right SI fusion as an out patient -Patient and his agree with the plan and all questions answered -Patient discussed with Dr Ellis Please call neurosurgery with questions/concerns Subjective: feels better than he has in weeks Objective: AxO x4 MARTINEZ x4 5/5 BUE, BLE Thorcolumbar spine non tender to palpation Right SI non tender to palpation Neuro Check Frequency: per routine Urinary Catheter in Place: No - Physician Discussed Patient with Dr.: Ellis Neurosurgery Physical Exam - Vitals, I&O, Labs I and O 12/20/18 12/21/18 12/22/18 05:59 05:59 05:59 Intake Total 450 1155 Output Total 0 Balance 450 1155 Weight 74.843 kg Intake: Oral (ml) 450 705 IV Intake (ml) 450 Output: Estimated Blood Loss (ml) 0 Other: Intake Quantity Yes Sufficient Number of Voids Toilet 3 1 Number of Stools Toilet 1 Vital Signs Temp Pulse Resp BP Pulse Ox 36.6 C 78 16 94/37 L 90 L 12/21/18 04:52 12/21/18 04:52 12/21/18 04:52 12/21/18 04:53 12/21/18 04:52 Laboratory Results 12/17/18 10:30 12/17/18 10:30 ICD10 Worksheet Patient Problems: Problems Problem Status Onset Back pain Acute Cervical pain (neck) Acute Medication side effect Acute Other spondylosis with radiculopathy, lumbar region Acute Other spondylosis with radiculopathy, lumbar region Acute Pain Acute Pain Acute
[2018-12-21] MEDS: HYDROmorphONE/DILAUDID 4 MG TAB PO PRN ×2 (07:36→21:50)
[2018-12-21] MEDS: traMADol 50 MG TAB PO PRN (07:37)
[2018-12-21] MEDS: FAMOTIDINE 20 MG TAB PO SCH ×2 (07:38→21:50)
[2018-12-21] MEDS: CETIRIZINE 10 MG TAB PO SCH (07:38)
[2018-12-21] MEDS: GLUCOSAMINE/CHONDROITIN CAP PO SCH (07:38)
[2018-12-21] MEDS: ALLOPURINOL 300 MG TAB PO SCH (07:39)
[2018-12-21] MEDS: guaiFENesin 600 MG TAB.ER PO SCH ×2 (07:39→21:50)
[2018-12-21] MEDS: DULoxetine 30 MG CAP PO SCH (07:39)
[2018-12-21] MEDS: MULTIVITAMINS 1 EACH TAB PO SCH (07:39)
[2018-12-21] MEDS: predniSONE 10 MG TAB PO SCH (07:39)
[2018-12-21] MEDS: CYCLOBENZAPRINE 10 MG TAB PO SCH ×3 (07:39→21:49)
[2018-12-21] MEDS: FLUTICASONE/SALMETER 250/50MCG DISKUS IH SCH ×2 (09:03→19:51)
[2018-12-21] MEDS: IPRATROPIUM/ALBUTEROL 3 ML DEYVIAL IH PRN ×2 (09:03→19:51)
[2018-12-21] MEDS: POLYETHYLENE GLYCOL 3350 17 GM PKT PO PRN (10:06)
--- NOTE | 2018-12-21 11:54 | HOSPPROG ---
Hospitalist Progress Note Assessment/Plan: 78 yo M w SI pain. Right hip pain: SI joint injectio today w CT guidance given hardware back pain: considerably improved w vertebroplasty Gout: Allopurinol Asthma: no exacerbation Anxiety: home Ativan Diet: regular DVT ppx: SCDs Disp: inpatient admission for PT, pain control Subjective: case d/w dr pardo. considerable pain relief from vertebroplasty Objective: Vital Signs Temp Pulse Resp BP Pulse Ox 36.5 C 93 16 122/70 H 94 12/21/18 11:17 12/21/18 11:17 12/21/18 11:17 12/21/18 11:17 12/21/18 11:17 Laboratory Results 12/17/18 10:30 12/17/18 10:30 12/20/18 12/21/18 12/22/18 05:59 05:59 05:59 Intake Total 450 1155 Output Total 0 Balance 450 1155 PT 13.5 SEC (12.0-15.0) 12/20/18 14:00 INR 1.01 (0.83-1.16) 12/20/18 14:00 - Physical Exam Constitutional: no apparent distress, appears nourished Eyes: PERRL, anicteric sclera Ears, Nose, Mouth, Throat: moist mucous membranes, hearing normal Cardiovascular: regular rate and rhythym, no murmur, rub, or gallop Respiratory: no respiratory distress, no rales or rhonchi Gastrointestinal: normoactive bowel sounds, soft, non-tender abdomen Genitourinary: no bladder fullness, No james in urethra Skin: warm, normal color Musculoskeletal: full muscle strength, no muscle tenderness Neurologic: AAOx3 ICD10 Worksheet Patient Problems: Problems Problem Status Onset Back pain Acute Cervical pain (neck) Acute Medication side effect Acute Other spondylosis with radiculopathy, lumbar region Acute Other spondylosis with radiculopathy, lumbar region Acute Pain Acute Pain Acute
[2018-12-21] MEDS ORDERED: LIDOCAINE 1% 300 MG/30 ML SDV ONE (15:25)
[2018-12-21] MEDS ORDERED: DEPO METHYLPREDNISOLONE 40 MG/ML SDV ONE (15:25)
[2018-12-21] MEDS ORDERED: LIDO/EPI 1% **Not for Epidural 20 ML MDV ONE (15:25)
[2018-12-21] MEDS ORDERED: BUPIVACAINE 0.25% 30 ML SDV ONE (15:26)
--- NOTE | 2018-12-21 16:20 | PDHPUP ---
History & Physical Update H&P update statement: This history and physical update is based on an assessment of the patient which was completed after admission or registration (within 24 hours), but prior to the surgery/procedure. Right SI joint pain. Plan for SI joint steroid injection H&P update: H&P reviewed & patient examined, no change in patient's condition since H&P completed
--- NOTE | 2018-12-21 16:21 | PDRADPN ---
Radiology Procedure Note Date of Procedure: 12/21/18 Radiologist: Bossman Mehta Anesthesia: Local (Specify) Pre-op Diagnosis: SI joint pain Post-op Diagnosis: SI joint pain Indication: SI joint pain Procedure: Right SI joint injection Finding(s): DepoMedrol and bupivicaine injection into lower right SI joint. Inf/Abcess present in the surg proc area at time of surgery?: No
--- NOTE | 2018-12-21 19:00 | GDS ---
[f rep st] DISCHARGE SUMMARY DISCHARGE DIAGNOSES: 1. T11 compression fracture, status post kyphoplasty x2. 2. Sacroiliac joint inflammation, status post injection. CONSULTS: Neurosurgery. HOSPITAL COURSE: Please see admission history and physical by Dr. Shilo Merlos. The patient presente d on the with ongoing low back pain. He was sent over from [facility]. Has 7 prior lumbar and sacral surgeries with hardware, and he had a recent fall with a burst fracture at T11. He underwent vertebroplasty with minimal improvement, and then this was repeated on the with significant impr ovement in his pain. They were unable to access this SI joint because of potentially overlying hardware, so he is now unde rgoing SI joint injection with CT guidance. He is discharged home thereafter, as he is up to travel, and his is able to drive home in the dark as they live in [place]. He is provided with pres criptions for p.o. Dilaudid, p.o. tramadol and Flexeril. The patient was significantly improved on t morning of the , following the 2nd vertebroplasty. /[id number]/MODL
[2018-12-21] MEDS: METOPROLOL SUCCINATE XR 25 MG TAB PO SCH (21:49)
[2018-12-21] MEDS: CALCIUM CARBONATE 500 MG TAB PO SCH (21:50)
[2018-12-22] MEDS: HYDROmorphONE/DILAUDID 4 MG TAB PO PRN ×2 (04:23→09:26)
[2018-12-22] MEDS: KETOROLAC 15 MG/1 ML SDV IVP PRN (07:49)
--- NOTE | 2018-12-22 09:14 | HOSPPROG ---
Hospitalist Progress Note Assessment/Plan: 78 yo M w SI pain. Right hip pain: SI joint injectio today w CT guidance given hardware back pain: considerably improved w vertebroplasty Gout: Allopurinol Asthma: no exacerbation Anxiety: home Ativan Diet: regular DVT ppx: SCDs Disp: home today > 30 minutes Subjective: SI joint pain a bit worse this AM. no f/c Objective: Vital Signs Temp Pulse Resp BP Pulse Ox 36.6 C 66 16 161/92 H 97 12/22/18 07:58 12/22/18 07:58 12/22/18 07:58 12/22/18 07:58 12/22/18 07:58 Laboratory Results 12/17/18 10:30 12/17/18 10:30 12/21/18 12/22/18 12/23/18 05:59 05:59 05:59 Intake Total 1155 700 Output Total 0 Balance 1155 700 PT 13.5 SEC (12.0-15.0) 12/20/18 14:00 INR 1.01 (0.83-1.16) 12/20/18 14:00 - Physical Exam Constitutional: no apparent distress, appears nourished Eyes: PERRL, anicteric sclera Ears, Nose, Mouth, Throat: moist mucous membranes, hearing normal Cardiovascular: regular rate and rhythym, no murmur, rub, or gallop Respiratory: no respiratory distress, no rales or rhonchi Gastrointestinal: normoactive bowel sounds, soft, non-tender abdomen Genitourinary: No james in urethra Skin: warm, normal color Musculoskeletal: other (injection sites c/d/i) Neurologic: AAOx3 ICD10 Worksheet Patient Problems: Problems Problem Status Onset Back pain Acute Cervical pain (neck) Acute Medication side effect Acute Other spondylosis with radiculopathy, lumbar region Acute Other spondylosis with radiculopathy, lumbar region Acute Pain Acute Pain Acute
[2018-12-22] MEDS: FAMOTIDINE 20 MG TAB PO SCH (09:25)
[2018-12-22] MEDS: DULoxetine 30 MG CAP PO SCH (09:25)
[2018-12-22] MEDS: CYCLOBENZAPRINE 10 MG TAB PO SCH (09:25)
[2018-12-22] MEDS: guaiFENesin 600 MG TAB.ER PO SCH (09:25)
[2018-12-22] MEDS: GLUCOSAMINE/CHONDROITIN CAP PO SCH (09:25)
[2018-12-22] MEDS: ALLOPURINOL 300 MG TAB PO SCH (09:25)
[2018-12-22] MEDS: CETIRIZINE 10 MG TAB PO SCH (09:25)
--- NOTE | 2018-12-22 09:25 | GDS ---
[f rep st] DISCHARGE SUMMARY Patient did not leave last night following a steroid injection. He is leaving today. Please see yes terbarb's discharge summary for further details. Greater than 30 minutes spent in the preparation of this discharge. All questions answered. /[id number]/MODL
[2018-12-22] MEDS: MULTIVITAMINS 1 EACH TAB PO SCH (09:26)
[2018-12-22] MEDS: predniSONE 10 MG TAB PO SCH (09:26)
[2018-12-22] MEDS: IPRATROPIUM/ALBUTEROL 3 ML DEYVIAL IH PRN (09:52)
[2018-12-22] MEDS: FLUTICASONE/SALMETER 250/50MCG DISKUS IH SCH (09:52)
--- NOTE | 2018-12-22 10:11 | NEUSURGPN ---
Assessment/Plan: Assessment/Plan: Assessment: 78 yr old M with a history of T12-S2 fusion, right hip/SI pain, S/P T11 kyphoplasty with IR 12/20/18. Nw also sp CT guided SI joint injection with IR on 12/22/18. Plan: -Neuro: In a lot of pain this morning in the SI joint area. Ovalo better with the local anesthetic but when that wore off now in horrible pain again. -Patient is admitted to medicine -Ortho eval did not find hip to be source of symptoms -Patient notes improvement with his pain post kyphoplasty -patient received 80% relief of SI joint pain from local anesthetic portion of right SI joint injection but now back in pain again -Ok to discharge from our standpoint if pain manageable, our office is working on authorization for right SI fusion as an out patient -Patient and his agree with the plan and all questions answered -Patient discussed with Dr Ellis- patient would like to go home and deal with pain there until our office is able to schedule SI joint fusion in the next 1-2 weeks. Please call neurosurgery with questions/concerns Subjective: Got initial great improvement from local anesthetic during SI joint injection now with horrible pain the right SI joint area especially when he gets up to walk. Still wants to go home and do pain control from there until SI joint fusion can be scheduled. Objective: NAD, VSS Laying flat in bed, uncomfortable AxO x4 MARTINEZ x4 5/5 BUE, BLE Thorcolumbar spine non tender to palpation Right SI joint extremely tender to palpation - Physician Discussed Patient with Dr.: Ellis Neurosurgery Physical Exam - Vitals, I&O, Labs I and O 12/21/18 12/22/18 12/23/18 05:59 05:59 05:59 Intake Total 1155 700 Output Total 0 Balance 1155 700 Weight 74.843 kg Intake: Oral (ml) 705 700 IV Intake (ml) 450 Output: Estimated Blood Loss (ml) 0 Other: Number of Voids Toilet 1 3 Vital Signs Temp Pulse Resp BP Pulse Ox 36.6 C 66 16 161/92 H 97 12/22/18 07:58 12/22/18 07:58 12/22/18 07:58 12/22/18 07:58 12/22/18 07:58 Laboratory Results 12/17/18 10:30 12/17/18 10:30 ICD10 Worksheet Patient Problems: Problems Problem Status Onset Back pain Acute Cervical pain (neck) Acute Medication side effect Acute Other spondylosis with radiculopathy, lumbar region Acute Other spondylosis with radiculopathy, lumbar region Acute Pain Acute Pain Acute
[2018-12-22 11:21] VITALS: BP 134/81
--- NOTE | 2018-12-22 12:30 | ASMTDCNOTE ---
Case Management Discharge Discharge Order Complete? Answers: Yes Patient to Obtain Answers: Independently Medications Transportation Arranged Answers: Family/Friends Family Notified Answers: Yes Notes: , Alicia Discharge Comments Notes: Patient is discharging home to [place] with his today. Patient's pain is now under control and he wishes to go home and manage the pain from there until his next SI joint fusion in 2 weeks. No further d/c needs at this time. Date Signed: 12/22/2018 12:29 PM Electronically Signed By:Jane Stephen LCSW
--- NOTE | 2018-12-22 12:33 | ASDISCHSUM ---
Discharge Information Plan Status:Home with No Needs Medically Cleared to Leave:12/21/2018 Discharge Date:12/21/2018 CM D/C Disposition:Home, Routine, Self-Care ADT D/C Disposition:Home, Routine, Self-Care Projected Discharge Date:12/22/2018 12:00 AM Transportation at D/C:Family Discharge Delay Reason: Follow-Up Date:12/22/2018 12:00 AM Discharge Slot:2 - 12:01 pm - 18:00 pm Final Diagnosis:Cervical pain, spondylosis with radiculopathy Placement Information Patient Contact Information Contact Name:DEBORAH Relationship: Address:[address] City:[facility] Phone: [facility]/Zip Code:[place] [address] Email: Financial Information Financial Class:Medicare Primary Plan Desc:MEDICARE INPATIENT Primary Plan Number:[id number] Secondary Plan Desc:[employer] Secondary Plan Number:[id number] Assessment Information LACE LACE Length of stay for Answers: 4-6 days current admission Acuity / Level of Answers: Yes Care: Did the patient have an inpatient admission? Comorbidities - select Answers: Chronic pulmonary disease all that apply Opioid dependence / Chronic pain Other Notes: spondylosis # of Emergency department Answers: 3-4 visits in the last 6 months Social determinants Answers: Mental health diagnosis (anxiety, depression, pers onality disorders, etc.) Score: 20 Date Signed: 12/22/2018 12:32 PM Electronically Signed By:Jane Stephen LCSW [facility] CM Progress Note CM Note CM Note Notes: Reviewed chart. Pt admitted for worsening back pain. History is extensive and includes seven prior lumbar/sacral surgeries with hardware, gout, asthma, spinal stenosis and an anxiety disorder. Pt was recently discharged on 11/27/18 with similar complaints. Pt is and lives in [place] with his . Therapy evals are pending. Discharge needs remain unclear at this time. CM will continue to follow for any potential needs. Discharge Plan: To be determined Date Signed: 12/18/2018 04:06 PM Electronically Signed By:Radha Mann RN [facility] Progress Note CM Note CM Note Notes: No dc today, pt still struggling with pain. Will have Kyphoplasty and SI injection on Thursday. PT eval pending, CM w/f for dc needs. Date Signed: 12/19/2018 01:59 PM Electronically Signed By:Nessa Singleton RN Case Management Discharge Plan Note Case Management Discharge Discharge Order Complete? Answers: Yes Patient to Obtain Answers: Independently Medications Transportation Arranged Answers: Family/Friends Family Notified Answers: Yes Notes: Alicia Discharge Comments Notes: Patient is discharging home to [place] with his today. Patient's pain is now under control and he wishes to go home and manage the pain from there until his next SI joint fusion in 2 weeks. No further d/c needs at this time. Date Signed: 12/22/2018 12:29 PM Electronically Signed By:Jane Stephen LCSW Intervention Information Intervention Type:*IM-Signed Date of Service:12/22/2018 11:15 AM Patient Type:Inpatient Staff Member:Stephanie Oliver Hours: Discipline: Severity: Comment:
[2018-12-22] MEDS: traMADol 50 MG TAB PO PRN (12:34)
== END 2018-12-22 12:59 | disposition home or self-care (01) | DRG 517 ==
LOC: F3E 14:14
PROVIDERS: ADMIT Internal Medicine; ATTEND Internal Medicine
PROC: 0PS43ZZ Reposition Thoracic Vertebra, Percutaneous Approach (ICD-10-PCS; principal; 2018-12-20 16:25)
PROC: 0PU43JZ Supplement Thoracic Vertebra with Synthetic Substitute, Percutaneous Approach (ICD-10-PCS; principal; 2018-12-20 16:25)
PROC: 3E0U3NZ Introduction of Analgesics, Hypnotics, Sedatives into Joints, Percutaneous Approach (ICD-10-PCS; 2018-12-21)
PROC: 3E0U33Z Introduction of Anti-inflammatory into Joints, Percutaneous Approach (ICD-10-PCS; 2018-12-21)
DX: S22.081A Stable burst fracture of T11-T12 vertebra, initial encounter for closed fracture (principal); M53.3 Sacrococcygeal disorders, not elsewhere classified; W19.XXXA Unspecified fall, initial encounter; D72.829 Elevated white blood cell count, unspecified; M10.9 Gout, unspecified; J45.909 Unspecified asthma, uncomplicated; F41.9 Anxiety disorder, unspecified; Z87.891 Personal history of nicotine dependence; Z98.1 Arthrodesis status
CPT/HCPCS: 96374; 97162-GP; J1030; J1100; J1170; J1885; J2405; J2704; J7512

== ENCOUNTER → 2019-03-22 | Day surgery (SDC) | payer OTHER | END | disposition home or self-care (01) | LOC: FIMAGING 14:40 | PROVIDERS: ATTEND Radiology Vascular & Interventional Radiology | PROC: 02HV33Z Insertion of Infusion Device into Superior Vena Cava, Percutaneous Approach (ICD-10-PCS; principal; 2019-03-22) | DX: B00.4 Herpesviral encephalitis (principal) | CPT/HCPCS: 36569; 77001; C1751 ==